=== PATIENT | female | born 1955 | race Caucasian/White ===

== ENCOUNTER 2016-09-11 18:16 | Emergency (ER) | payer BC ==
[2016-09-11 18:27] VITALS: BP 136/55
[2016-09-11] MEDS ORDERED: Sodium Chloride 0.9% 10 ML Syringe FLUSH PRN (18:40)
[2016-09-11] MEDS ORDERED: Famotidine 20 MG/2 ML SDV IVPUSH ONE (18:40)
[2016-09-11] MEDS ORDERED: Ondansetron 4 MG/2 ML SDV IVPUSH ONE (18:40)
[2016-09-11] MEDS ORDERED: Sodium Chloride 0.9% 1,000 ML IV SCH (18:45)
--- NOTE | 2016-09-11 19:30 | EDM.PDOC ---
ED HPI GI/ABDOMINAL - General Chief Complaint: Abdominal Pain Stated Complaint: ABDOMINAL, CHILLS,NAUSEA Time Seen by Provider: 09/11/16 18:30 Source of Information: Reports: Patient, RN notes reviewed - History of Present Illness INITIAL COMMENTS - FREE TEXT/NARRATIVE: 61 year old female with onset of abd pain, nausea and diarrhea this past morning about 14 hrs ago. No further diarrhea but has had a lot of upper and mid abd cramping. Continues to feel very nauseated and still having some discomfort. The pain was radiating to her back. That part now is better. No chest or shoulder pain. No fever or chills. Hx of prior appy. - Related Data Allergies/ADRs: Allergies Allergy/AdvReac Type Severity Reaction Status Date / Time latex Allergy Hives Verified 10/24/13 21:47 Home Meds: Home Meds Britta. 10/24/13 [History] Citalopram. 10/24/13 [History] Flonase. 10/24/13 [History] Levothyroxine. 10/24/13 [History] Simvastatin. 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: Musculoskeletal History: Reports: Arthritis Psychiatric History: Reports: Anxiety Endocrine/Metabolic History: Reports: Hypothyroidism Dermatologic History: Reports: Eczema - Past Surgical History GI Surgical History: Reports: Appendectomy Female Surgical History: Reports: Hysterectomy, Tubal ligation Social & Family History - Family History Family Medical History: Noncontributory - Tobacco Use Smoking Status *Q: Never Smoker Second Hand Smoke Exposure: Yes - Caffeine Use Caffeine Use: Reports: Coffee, Soda, Tea - Alcohol Use Days Per Week of Alcohol Use: 1 Number of Drinks Per Day: 3 Total Drinks Per Week: 3 - Recreational Drug Use Recreational Drug Use: No ED ROS GENERAL - Review of Systems Review Of Systems: See Below Constitutional: Denies: fever, chills, diaphoresis HEENT: Reports: No symptoms Respiratory: Denies: Shortness of Breath, Wheezing, Pleuritic Chest Pain Cardiovascular: Denies: Chest pain GI/Abdominal: Reports: Abdominal pain, Diarrhea, Nausea. Denies: Hematochezia, Melena, Vomiting : Reports: no symptoms Musculoskeletal: Reports: back pain Skin: Reports: no symptoms Neurological: Reports: No Symptoms ED EXAM, GI/ABD - Physical Exam Exam: See Below General Appearance: alert, no apparent distress Eyes: bilateral: normal appearance Throat/Mouth: Normal inspection, Normal oropharynx Head: No: facial swelling Neck: supple, full range of motion. No: lymphadenopathy (L), lymphadenopathy (R ) Respiratory/Chest: no respiratory distress, lungs clear, normal breath sounds Cardiovascular: regular rate, rhythm GI/Abdominal: soft, tenderness (mild upper mid abd tenderness, abd otherwise soft and nontender). No: guarding, rebound Back Exam: No: CVA tenderness (L), CVA tenderness (R) Extremities: normal inspection. No: pedal edema, leg pain Neurological: alert, oriented, no motor/sensory deficits Course - Vital Signs Last Recorded V/S: Last Vital Signs Temp 98.0 F 09/11/16 18:21 Pulse 71 09/11/16 18:21 Resp 14 09/11/16 18:21 BP 136/55 L 09/11/16 18:21 Pulse Ox 98 09/11/16 18:21 - Orders/Labs/Meds Orders: Active Orders 24 hr Category Date Time Status Peripheral IV Care [RC] . DIRECTED Care 09/11/16 18:41 Active Peripheral IV Insertion Adult [OM.PC] Stat Oth 09/11/16 18:40 Ordered Labs: Laboratory Tests 09/11/16 09/11/16 Range/Units 18:32 18:32 WBC 15.55 H (3.98-10.04) K/mm3 RBC 3.82 L (3.98-5.22) M/mm3 Hgb 12.4 (11.2-15.7) gm/L Hct 37.4 (34.1-44.9) % MCV 97.9 H (79.4-94.8) fl MCH 32.5 H (25.6-32.2) pg MCHC 33.2 (32.2-35.5) g/dl RDW Std Deviation 46.4 H (36.4-46.3) fL Plt Count 390 H (182-369) K/mm3 MPV 8.7 L (9.4-12.3) fl Neut % (Auto) 75.0 H (34.0-71.1) % Lymph % (Auto) 11.8 L (19.3-51.7) % [place] % (Auto) 9.7 (4.7-12.5) % Eos % (Auto) 2.9 (0.7-5.8) Baso % (Auto) 0.3 (0.1-1.2) % Neut # (Auto) 11.67 H (1.56-6.13) K/mm3 Lymph # (Auto) 1.84 (1.18-3.74) K/mm3 [place] # (Auto) 1.51 H (0.24-0.36) K/mm3 Eos # (Auto) 0.45 H (0.04-0.36) K/mm3 Baso # (Auto) 0.04 (0.01-0.08) K/mm3 Manual Slide Review Normal smear Sodium 134 L (136-145) mEq/L Potassium 4.1 (3.5-5.1) mEq/L Chloride 97 L (98-107) mEq/L Carbon Dioxide 29 (21-32) mEq/L Anion Gap 12.1 (5-15) BUN 9 (7-18) mg/dL Creatinine 0.8 (0.55-1.02) mg/dL Est Cr Clr Drug Dosing 60.31 mL/min Estimated GFR (MDRD) > 60 (>60) mL/min BUN/Creatinine Ratio 11.3 L (14-18) Glucose 109 (80-115) mg/dL Calcium 9.1 (8.5-10.1) mg/dL Total Bilirubin 0.6 (0.2-1.0) mg/dL AST 15 (15-37) U/L ALT 24 (14-59) U/L Alkaline Phosphatase 75 (46-116) U/L Total Protein 8.0 (6.4-8.2) g/dl Albumin 3.7 (3.4-5.0) g/dl Globulin 4.3 gm/dL Albumin/Globulin Ratio 0.9 L (1-2) Lipase 158 (73-393) U/L Meds: Medications Discontinued Medications Generic Name Dose Route Start Last Admin Trade Name Freq PRN Reason Stop Dose Admin Famotidine 20 mg 09/11/16 18:40 09/11/16 19:05 Pepcid IVPUSH 09/11/16 18:41 20 mg ONETIME ONE Administration Hydromorphone HCl 0.5 mg 09/11/16 20:11 09/11/16 20:16 Dilaudid IVPUSH 09/11/16 20:12 0.5 mg ONETIME ONE Administration Sodium Chloride 1,000 mls @ 999 mls/hr 09/11/16 18:45 09/11/16 19:07 Normal Saline IV 999 mls/hr ONETIME LUCRECIA Administration Ketorolac Tromethamine 30 mg 09/11/16 20:15 09/11/16 20:26 Toradol IVPUSH 30 mg ONETIME LUCRECIA Administration Ondansetron HCl 4 mg 09/11/16 18:40 09/11/16 19:03 Zofran IVPUSH 09/11/16 18:41 4 mg ONETIME ONE Administration Sodium Chloride 10 ml 09/11/16 18:40 09/11/16 19:05 Saline Flush FLUSH 10 ml ASDIRECTED PRN Administration Keep Vein Open - Re-Assessments/Exams Free Text/Narrative Re-Assessment/Exam: 09/11/16 20:23 WBC is elevated, Her nausea is improved after IV zofran and fluid, now starting to have upper and mid abd cramping again. Will give torodol IV and also 0.5 mg dilaudid IV. With her sudden onset of pain, diarrhea , intermitant cramping will put her on a 5 day course of cipro 500 mg bid. She continues to be nontender LLQ Departure - Departure Time of Disposition: 20:45 Disposition: Home, Self-Care 01 Condition: fair Clinical Impression: Abdominal pain Qualifiers: Abdominal location: upper abdomen, unspecified Qualified Code(s): R10.10 - Upper abdominal pain, unspecified Prescriptions: Ciprofloxacin HCl [Cipro] 500 mg PO BID #10 tablet Ondansetron [Zofran ODT] 4 mg PO Q8H PRN #7 tab.dis PRN Reason: Nausea/Vomiting Instructions: Abdominal Pain, Adult, [id number] Referrals: Linda Sanchez MD [Primary Care Provider] - Forms: ED Department Discharge Additional Instructions: clear liquids until tomorrow afternoon, than careful bland diet as tolerated. Start cipro this evening and take that twice daily for 5 days. Zofran if needed for further nausea or vomiting. Follow up with Dr Sanchez tomorrow as planned. Return to ED as needed, especially if symptoms worsening in any way. - My Orders Last 24 Hours: My Active Orders 09/11/16 18:40 Peripheral IV Insertion Adult [OM.PC] Stat 09/11/16 18:41 Peripheral IV Care [RC] . DIRECTED - Assessment/Plan Last 24 Hours: My Active Orders 09/11/16 18:40 Peripheral IV Insertion Adult [OM.PC] Stat 09/11/16 18:41 Peripheral IV Care [RC] . DIRECTED
[2016-09-11] MEDS ORDERED: HYDROmorphone 0.5 MG/0.5 ML Syringe IVPUSH ONE (20:11)
[2016-09-11] MEDS ORDERED: Ketorolac 30 MG/ML SDV IVPUSH SCH (20:15)
== END 2016-09-11 20:59 | disposition home or self-care (01) ==
LOC: JD.ED 18:16
DX: R10.10 Upper abdominal pain, unspecified (principal); Z91.040 Latex allergy status; Z79.899 Other long term (current) drug therapy; E78.00 Pure hypercholesterolemia, unspecified; M19.90 Unspecified osteoarthritis, unspecified site; F41.9 Anxiety disorder, unspecified; E03.9 Hypothyroidism, unspecified
CPT/HCPCS: 36415; 80053; 83690; 85025; 96361; 96374; 96375; 99284; J1170; J1885; J2405; J7040; J7050

== ENCOUNTER 2017-08-11 19:03 | Inpatient (IN) | payer BC ==
[2017-08-11] MEDS ORDERED: HYDROmorphone 0.5 MG/0.5 ML SYRINGE IVPUSH ONE (19:51)
[2017-08-11] MEDS ORDERED: Sodium Chloride 0.9% 1,000 ML IV ONE (19:51)
[2017-08-11] MEDS ORDERED: Ondansetron 4 MG/2 ML SDV IVPUSH ONE (19:51)
--- NOTE | 2017-08-11 19:57 | EDM.PDOC ---
ED HPI GENERAL MEDICAL PROBLEM - General Chief Complaint: Abdominal Pain Stated Complaint: NAUSEA,BLOATED,TIGHTNESS UNDER BREAST,BACK PAIN Time Seen by Provider: 08/11/17 19:36 Source of Information: Reports: Patient History Limitations: Reports: No Limitations - History of Present Illness INITIAL COMMENTS - FREE TEXT/NARRATIVE: Patient is a 61-year-old female who presents to the ED complaining of upper abdominal pain left greater than the right. started approximately noon today after eating a peanut butter sandwich. Pain is persisted. It is constant with waxing waning in nature. Is described as a pressure with a sensation she has a tight band around her abdomen. She is nauseous with no emesis. She's had no diarrhea. She does feel constipated and states she's had some issues with this in the past. She's had 2 bowel movements today described as being hard. She has had similar symptoms years ago with no follow-up thereafter. She denies any fever, dysuria, chest pain, shortness of breath, dizziness, presyncope/syncopal episode, or any additional complaints. There is a family history of first- degree relatives with heart disease. Past history includes hypothyroidism,and anxiety/depression Current medications include levothyroxine, and citalopram Surgical history appendectomy, tubal ligation, and hysterectomy. Epigastric Pain Score (Numeric/FACES): 8 - Related Data Allergies Allergy/AdvReac Type Severity Reaction Status Date / Time latex Allergy Hives Verified 08/11/17 19:17 Home Meds: Home Meds Britta. 10/24/13 [History] Citalopram. 10/24/13 [History] Flonase. 10/24/13 [History] Levothyroxine. 10/24/13 [History] Simvastatin. 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 Psychiatric History: Reports: Anxiety Endocrine/Metabolic History: Reports: Hypothyroidism Dermatologic History: Reports: Eczema - Past Surgical History GI Surgical History: Reports: Appendectomy Female Surgical History: Reports: Hysterectomy, Tubal Ligation Social & Family History - Family History Family Medical History: Noncontributory - Tobacco Use Smoking Status *Q: Never Smoker Second Hand Smoke Exposure: Yes - Caffeine Use Caffeine Use: Reports: Coffee, Soda, Tea - Alcohol Use Days Per Week of Alcohol Use: 1 Number of Drinks Per Day: 3 Total Drinks Per Week: 3 - Recreational Drug Use Recreational Drug Use: No ED ROS GENERAL - Review of Systems Review Of Systems: ROS reveals no pertinent complaints other than HPI. ED EXAM, GI/ABD - Physical Exam Exam: See Below Exam Limited By: No Limitations General Appearance: Alert, WD/WN, Mild Distress Eyes: Bilateral: Normal Appearance Ears: Hearing Grossly Normal Nose: Normal Inspection Throat/Mouth: Normal Inspection, Normal Oropharynx, Normal Voice, No Airway Compromise Neck: Normal Inspection, Supple Respiratory/Chest: No Respiratory Distress, Lungs Clear, Normal Breath Sounds, No Accessory Muscle Use, Chest Non-Tender Cardiovascular: Normal Peripheral Pulses, Regular Rate, Rhythm, No Murmur GI/Abdominal Exam: Soft, No Organomegaly, No Distention, Tender (Upper abdomen left greater than right.), Abnormal Bowel Sounds Back Exam: Normal Inspection. No: CVA Tenderness (L), CVA Tenderness (R) Extremities: Normal Inspection, Non-Tender, No Pedal Edema, Normal Capillary Refill Neurological: Alert, Oriented, CN II-XII Intact, Normal Cognition, No Motor/ Sensory Deficits Psychiatric: Normal Affect, Normal Mood Skin Exam: Warm, Dry, Intact, Normal Color, No Rash Course - Vital Signs Last Recorded V/S: Last Vital Signs Temp 98.2 F 08/11/17 19:17 Pulse 71 08/11/17 19:17 Resp 17 08/11/17 19:17 BP 136/59 L 08/11/17 19:17 Pulse Ox 97 08/11/17 19:17 - Orders/Labs/Meds Orders: Active Orders 24 hr Category Date Time Status EKG Documentation Completion [RC] STAT Care 08/11/17 19:48 Active Peripheral IV Care [RC] . DIRECTED Care 08/11/17 19:50 Active Abdomen 2V AP Flat Upright [CR] Stat Exams 08/11/17 19:48 Taken Abdomen Pelvis w Cont [CT] Stat Exams 08/11/17 21:17 Taken Sodium Chloride 0.9% [Saline Flush] Med 08/11/17 19:47 Active 10 ml FLUSH ASDIRECTED PRN Peripheral IV Insertion Adult [OM.PC] Stat Oth 08/11/17 19:48 Ordered Peripheral IV Insertion Adult [OM.PC] Stat Oth 08/11/17 19:51 Ordered Medication Orders Sodium Chloride (Saline Flush) 10 ml FLUSH ASDIRECTED PRN PRN Reason: Keep Vein Open Last Admin: 08/11/17 22:51 Dose: 10 ml Admin: 08/11/17 20:19 Dose: 10 ml Labs: Laboratory Tests 08/11/17 08/11/17 08/11/17 Range/Units 20:09 20:09 23:11 WBC 15.68 H (3.98-10.04) K/mm3 RBC 3.63 L (3.98-5.22) M/mm3 Hgb 11.7 (11.2-15.7) gm/L Hct 34.7 (34.1-44.9) % MCV 95.6 H (79.4-94.8) fl MCH 32.2 (25.6-32.2) pg MCHC 33.7 (32.2-35.5) g/dl RDW Std Deviation 44.6 (36.4-46.3) fL Plt Count 326 (182-369) K/mm3 MPV 8.3 L (9.4-12.3) fl Neut % (Auto) 74.9 H (34.0-71.1) % Lymph % (Auto) 13.5 L (19.3-51.7) % [place] % (Auto) 8.7 (4.7-12.5) % Eos % (Auto) 2.4 (0.7-5.8) Baso % (Auto) 0.4 (0.1-1.2) % Neut # (Auto) 11.76 H (1.56-6.13) K/mm3 Lymph # (Auto) 2.11 (1.18-3.74) K/mm3 [place] # (Auto) 1.36 H (0.24-0.36) K/mm3 Eos # (Auto) 0.37 H (0.04-0.36) K/mm3 Baso # (Auto) 0.06 (0.01-0.08) K/mm3 Sodium 134 L (136-145) mEq/L Potassium 4.1 (3.5-5.1) mEq/L Chloride 99 (98-107) mEq/L Carbon Dioxide 25 (21-32) mEq/L Anion Gap 14.1 (5-15) BUN 16 (7-18) mg/dL Creatinine 0.8 (0.55-1.02) mg/dL Est Cr Clr Drug Dosing 60.31 mL/min Estimated GFR (MDRD) > 60 (>60) mL/min BUN/Creatinine Ratio 20.0 H (14-18) Glucose 104 (80-115) mg/dL Calcium 9.6 (8.5-10.1) mg/dL Total Bilirubin 0.3 (0.2-1.0) mg/dL AST 15 (15-37) U/L ALT 20 (14-59) U/L Alkaline Phosphatase 75 (46-116) U/L Troponin I < 0.017 (0.00-0.056) ng/mL C-Reactive Protein 1.5 H* (<1.0) mg/dL Total Protein 7.9 (6.4-8.2) g/dl Albumin 3.3 L (3.4-5.0) g/dl Globulin 4.6 gm/dL Albumin/Globulin Ratio 0.7 L (1-2) Lipase 206 (73-393) U/L Urine Color Yellow (Yellow) Urine Appearance Clear (Clear) Urine pH 6.0 (5.0-8.0) Ur Specific [place] 1.025 (1.005-1.030) Urine Protein Negative (Negative) Urine Glucose (UA) Negative (Negative) Urine Ketones Negative (Negative) Urine Occult Blood 3+ H (Negative) Urine Nitrite Negative (Negative) Urine Bilirubin Negative (Negative) Urine Urobilinogen 0.2 (0.2-1.0) Ur Leukocyte Esterase 2+ H (Negative) Urine RBC 0-5 (0-5) /hpf Urine WBC 0-5 (0-5) /hpf Ur Epithelial Cells 0-5 (0-5) /hpf Urine Bacteria Few (FEW) /hpf Hyaline Casts 0-5 (0-5) /lpf WBC Casts 0-5 (0-5) /lpf Urine Mucus Few (FEW) /hpf Meds: Medications Generic Name Dose Route Start Last Admin Trade Name Bree PRN Reason Stop Dose Admin Sodium Chloride 10 ml 08/11/17 19:47 08/11/17 22:51 Saline Flush FLUSH 10 ml ASDIRECTED PRN Administration Keep Vein Open Discontinued Medications Generic Name Dose Route Start Last Admin Trade Name Bree PRN Reason Stop Dose Admin Diatrizoate Meglum/Diatrizoate Sod 90 ml 08/11/17 22:14 08/11/17 22:51 Gastrografin 37% PO 08/11/17 22:15 90 ml ONETIME ONE Administration Hydromorphone HCl 0.5 mg 08/11/17 19:51 08/11/17 20:19 Dilaudid IVPUSH 08/11/17 19:52 0.5 mg ONETIME ONE Administration Sodium Chloride 1,000 mls @ 250 mls/hr 08/11/17 19:51 08/11/17 20:19 Normal Saline IV 08/11/17 23:50 250 mls/hr ONETIME ONE Administration Iopamidol 125 ml 08/11/17 22:14 08/11/17 22:51 Isovue-300 (61%) IVPUSH 08/11/17 22:15 125 ml ONETIME ONE Administration Metoclopramide HCl 5 mg 08/11/17 23:40 08/11/17 23:50 Reglan IVPUSH 08/11/17 23:41 5 mg ONETIME ONE Administration Ondansetron HCl 4 mg 08/11/17 19:51 08/11/17 20:19 Zofran IVPUSH 08/11/17 19:52 4 mg ONETIME ONE Administration - Re-Assessments/Exams Free Text/Narrative Re-Assessment/Exam: IV established with normal saline, dilaudid 0.5 mg IV, and Zofran 4 mg IV.. Initial labs and studies include CBC, chem 14, lipase, troponin, UA, CRP, EKG, and abdomen 2 view flat and upright. EKG: Sinus rhythm at a rate of [address] changes noted. Abdominal x-ray: Reveal copious amounts of stool with few air-fluid levels. No signs of obstruction. Final interpretation is pending. Labs reviewed: White blood count 15.68, hemoglobin 9.7, neutrophil percentage 74.9, neutrophil #11.76, chemistry panel essentially normal. Troponin less than 0.017. CRP 1.5. Lipase 206. 08/11/17 21:18 Reassessment, patient states pain has improved with the above therapies. She still has no [place] sign with examination. Tender to the left upper quadrant. Discussed additional testing with the patient. We have elected to order a CT the abdomen and pelvis with oral and IV contrast. If negative will go ahead and obtain a ultrasound of the gallbladder on outpatient basis. 08/12/17 00: CT abdomen and pelvis impression: Upper terminal inflammation most likely due to pancreatitis. No sequel thereof. Asked for addendum since in his initial interpretation mentioned the pancreas was unremarkable. No mass. No ductal dilatation. Addendum stated the pancreas is abnormal with ill-defined edema in his head. Spoke with Dr. Fowler.Agrees to admit for acute pancreatitis. Bridge orders placed. MCG to be completed for admission. Departure - Departure Time of Disposition: 00:18 Disposition: Admitted As Inpatient 65 Condition: Fair Clinical Impression: Pancreatitis Qualifiers: Chronicity: acute Pancreatitis type: unspecified pancreatitis type Acute pancreatitis complication: no infection or necrosis Qualified Code(s): K85.90 - Acute pancreatitis without necrosis or infection, unspecified - Discharge Information Referrals: Linda Sanchez MD [Primary Care Provider] - Forms: ED Department Discharge - My Orders Last 24 Hours: My Active Orders 08/11/17 19:47 Sodium Chloride 0.9% [Saline Flush] 10 ml FLUSH ASDIRECTED PRN 08/11/17 19:48 EKG Documentation Completion [RC] STAT Abdomen 2V AP Flat Upright [CR] Stat Peripheral IV Insertion Adult [OM.PC] Stat 08/11/17 19:50 Peripheral IV Care [RC] . DIRECTED 08/11/17 19:51 Peripheral IV Insertion Adult [OM.PC] Stat 08/11/17 21:17 Abdomen Pelvis w Cont [CT] Stat - Assessment/Plan Last 24 Hours: My Active Orders 08/11/17 19:47 Sodium Chloride 0.9% [Saline Flush] 10 ml FLUSH ASDIRECTED PRN 08/11/17 19:48 EKG Documentation Completion [RC] STAT Abdomen 2V AP Flat Upright [CR] Stat Peripheral IV Insertion Adult [OM.PC] Stat 08/11/17 19:50 Peripheral IV Care [RC] . DIRECTED 08/11/17 19:51 Peripheral IV Insertion Adult [OM.PC] Stat 08/11/17 21:17 Abdomen Pelvis w Cont [CT] Stat
[2017-08-11] MEDS: Sodium Chloride 0.9% 10 ML Syringe FLUSH PRN ×2 (20:19→22:51)
[2017-08-11] MEDS ORDERED: Diatrizoate Meglumine/Diatrizoate Sodium 37% 120 ML Bottle PO ONE (22:14)
[2017-08-11] MEDS ORDERED: Iopamidol 612 MG/ML 150 ML Bottle IVPUSH ONE (22:14)
[2017-08-11] MEDS ORDERED: Metoclopramide 10 MG/2 ML SDV IVPUSH ONE (23:40)
[2017-08-12] MEDS ORDERED: Scopolamine 1 MG Transdermal Patch TRDERM ONE (00:30)
[2017-08-12] MEDS ORDERED: Temazepam 7.5 MG Cap PO PRN (01:15)
[2017-08-12] MEDS ORDERED: LORazepam 2 MG/ML SDV IVPUSH PRN (01:15)
[2017-08-12] MEDS ORDERED: HYDROmorphone 0.5 MG/0.5 ML SYRINGE IVPUSH PRN (02:01)
[2017-08-12] MEDS ORDERED: Ondansetron 4 MG/2 ML SDV IVPUSH PRN (02:03)
[2017-08-12] MEDS ORDERED: Pneumococcal Polyvalent-23 Vaccine 0.5 ML SDV IM ONE (02:13)
[2017-08-12] MEDS: Sodium Chloride 0.9% 1,000 ML IV SCH ×2 (02:40→16:52)
--- NOTE | 2017-08-12 06:27 | PCM.HP ---
H&P History of Present Illness - General Date of Service: 08/12/17 Source of Information: Patient, Old Records, Provider, RN History Limitations: Reports: No Limitations - History of Present Illness Initial Comments - Free Text/Narative: Netta Nicole is a 61 yo female who presented to our ED last night with upper quadrant abdominal pain which is greater on the right than on the left. She reports it started around noon yesterday after eating a peanut butter sandwich and persisted. The pain waxes and wanes however it is constant. She describes it as a pressure which is like a band around her abdomen. She is nauseous but has not vomited. She has had some constipation issues and does feel constipated. She had 2 prior bowel movements which were "hard". No diarrhea. She reports similar symptoms a few years ago with no follow-up. Denies fever, dysuria, chest pain, shortness of breath, dizziness, syncope, presyncope, or any additional complaints. She does have a first-degree family history of heart disease. She has had a prior appendectomy, tubal ligation, and hysterectomy. In the ED temperature 98.2 Fahrenheit. Pulse 71. Respirations 17. BP 136/59. Pulse ox 97%. Labs were obtained: WBC was elevated at 15.68. Hemoglobin 11.3. Hematocrit 34.7. She is macrocytic. Platelets 326,000. Neutrophils are elevated at 74.9%. Sodium is low at 134. Potassium 4.1. Chloride 99. Carbon dioxide 25. Anion gap was on the high end of good at 14.1. BUN is 16. Creatinine 0.8. EGFR greater than 60. Glucose 104. Calcium 9.6. Bilirubin 0.3. Liver enzymes are good with AST 15, ALT 20, alkaline phosphatase at 75. Troponin is negative at less than 0.017. CRP is elevated at 1.5. Protein 7.9. Albumin 3.3. Lipase is a 206. UA is essentially negative however 3+ occult blood and 2+ leukoesterase are noted. In the ER she was given normal saline 0.5 mg IV for pain and Zofran 4 mg IV. EKG is obtained which shows sinus rhythm at a rate of 63. No ST changes are noted. Abdominal x-ray is obtained that show copious months of stool with a few air-fluid levels. No signs of obstruction. Final interpretation pending radiology read. Exam revealed upper quadrant tenderness in the abdomen with left greater than right and abnormal bowel sounds. There is no Moreno sign. CT of the abdomen and pelvis revealed upper terminal inflammation most likely due to pancreatitis although the initial interpretation mentioned an unremarkable pancreas. Addendum was later added that said the pancreas is abnormal with ill-defined edema in the head. She carries a history of: HLD, impaired vision, arthritis, anxiety, hypothyroidism, eczema. As mentioned above she has had a prior appendectomy, hysterectomy, and tubal ligation. She was never a smoker. She is subsequently admitted to the medical floor. She is a full code. Her PCP is Dr. Sanchez at [facility]. Symptom Onset Date: 08/11/17 Symptom Onset Time: 12:00 Duration of Symptoms: Reports: Hour(s): Location: Reports: Abdomen Quality: Reports: Pressure Severity: Mild Improves with: Reports: None Worsens with: Reports: None Associated Symptoms: Reports: Nausea/Vomiting. Denies: Confusion, Chest Pain, Cough, cough w sputum, Fever/Chills, Loss of Appetite, Seizure, Shortness of Breath Epigastric Pain Score (Numeric/FACES): 2 - Related Data Allergies/Adverse Reactions: Allergies Allergy/AdvReac Type Severity Reaction Status Date / Time latex Allergy Hives Verified 08/11/17 19:17 Home Medications: Home Meds Calcium Carbonate [Calcium] 1,000 mg PO DAILY 08/12/17 [History] Cholecalciferol (Vitamin D3) [Vitamin D] 1 tab PO DAILY 08/12/17 [History] Citalopram Hydrobromide [Celexa] 20 mg PO DAILY 08/12/17 [History] Fish Oil/[place]-3 Fatty Acids [Fish Oil 1,000 MG] 1 tab PO DAILY 08/12/17 [ History] Levothyroxine 75 mcg PO DAILY 08/12/17 [History] Magnesium 1 tab PO DAILY 08/12/17 [History] Multivitamin [Multivitamins] 1 tab PO DAILY 08/12/17 [History] Zinc 1 tab PO DAILY 08/12/17 [History] Past Medical History HEENT History: Reports: Impaired Vision Cardiovascular History: Reports: High Cholesterol Respiratory History: Reports: Other (See Below) Other Respiratory History: allergies seasonal and household Gastrointestinal History: Reports: Pancreatitis Genitourinary History: Reports: None [employer]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: Musculoskeletal History: Reports: Arthritis Psychiatric History: Reports: Anxiety Endocrine/Metabolic History: Reports: Hypothyroidism, Obesity/BMI 30+ Dermatologic History: Reports: Eczema - Infectious Disease History Infectious Disease History: Reports: Chicken Pox, Measles, Mumps - Past Surgical History Cardiovascular Surgical History: Reports: None Respiratory Surgical History: Reports: None GI Surgical History: Reports: Appendectomy Female Surgical History: Reports: Hysterectomy, Tubal Ligation Endocrine Surgical History: Reports: None Social & Family History - Family History Family Medical History: Noncontributory - Tobacco Use Smoking Status *Q: Never Smoker Second Hand Smoke Exposure: Yes - Caffeine Use Caffeine Use: Reports: Coffee - Alcohol Use Days Per Week of Alcohol Use: 1 Number of Drinks Per Day: 3 Total Drinks Per Week: 3 - Recreational Drug Use Recreational Drug Use: No H&P Review of Systems - Review of Systems: Review Of Systems: See Below General: Reports: No Symptoms. Denies: Fever, Chills, Malaise, Weakness, Fatigue, Night Sweats, Decreased Appetite HEENT: Reports: Post Nasal Drip (chronic ). Denies: Ear Pain, Eye Pain, Headaches, Hearing Changes Pulmonary: Reports: No Symptoms. Denies: Shortness of Breath, Wheezing, Pleuritic Chest Pain, Cough, Sputum Cardiovascular: Reports: No Symptoms. Denies: Chest Pain, Palpitations, Dyspnea on Exertion, Edema, Lightheadedness Gastrointestinal: Reports: Abdominal Pain (LUQ> RUQ ), Constipation (chronic ), Nausea (however none currently ). Denies: Anorexia, Black Stool, Bloody Stool, Diarrhea, Decreased Appetite, Difficulty Swallowing, Hematemesis, Hematochezia, Melena, Vomiting Genitourinary: Reports: No Symptoms. Denies: Dysuria, Frequency, Burning, Pain , Urgency Musculoskeletal: Reports: Neck Pain, Shoulder Pain Skin: Reports: No Symptoms Psychiatric: Reports: No Symptoms Neurological: Reports: No Symptoms Hematologic/Lymphatic: Reports: No Symptoms Immunologic: Reports: No Symptoms Exam - Exam Exam: See Below - Vital Signs Vital Signs: Last Vital Signs Temp 97.3 F 08/12/17 01:45 Pulse 60 08/12/17 01:45 Resp 18 08/12/17 01:45 BP 129/61 08/12/17 01:45 Pulse Ox 97 08/12/17 01:45 Weight: 182 lb - Exam General: Alert, Oriented, Cooperative HEENT: PERRLA, Hearing Intact, Mucosa Moist & [place], Nares Patent, Normal Nasal Septum, Posterior Pharynx Clear, Conjunctiva Clear, EOMI, EACs Clear, TMs Clear Neck: Supple, Trachea Midline. No: JVD, Thyromegaly Lungs: Clear to Auscultation, Normal Respiratory Effort Cardiovascular: Regular Rate, Regular Rhythm GI/Abdominal Exam: Normal Bowel Sounds, Soft, No Organomegaly, No Distention, No Abnormal Bruit, No Mass, Pelvis Stable, Tender (LUQ>RUQ 2/10 ) (Female) Exam: Deferred Rectal (Female) Exam: Deferred Back Exam: Normal Inspection, Full Range of Motion. No: CVA Tenderness (L), CVA Tenderness (R) Extremities: Normal Inspection, Normal Range of Motion, Non-Tender, No Pedal Edema, Normal Capillary Refill Peripheral Pulses: 2+: Radial (L), Radial (R), Posterior Tibial (L), Posterior Tibial (R), Dorsalis Pedis (L), Dorsalis Pedis (R) Skin: Warm, Dry, Intact Neurological: Cranial Nerves Intact (grossly ) Neuro Extensive - Mental Status: Alert, Oriented x3, Normal Mood/Affect, Normal Cognition Psychiatric: Alert, Normal Affect, Normal Mood - Patient Data Result Diagrams: 08/12/17 05:23 08/12/17 05:23 *Q Meaningful Use (ADM) - VTE *Q VTE Criteria *Q: - Stroke *Q Stroke Criteria *Q: - AMI *Q AMI Criteria *Q: - Problem List (1) Pancreatitis SNOMED Code(s): 37067485 ICD Code: K85.90 - ACUTE PANCREATITIS WITHOUT NECROSIS OR INFECTION, UNSP Status: Acute Priority: High Current Visit: Yes Qualifiers: Chronicity: acute Pancreatitis type: unspecified pancreatitis type Acute pancreatitis complication: no infection or necrosis Qualified Code(s): K85.90 - Acute pancreatitis without necrosis or infection, unspecified (2) Abdominal pain SNOMED Code(s): 19874867 ICD Code: R10.9 - UNSPECIFIED ABDOMINAL PAIN Status: Acute Priority: High Current Visit: Yes Qualifiers: Abdominal location: upper abdomen, unspecified Qualified Code(s): R10.10 - Upper abdominal pain, unspecified (3) HLD (hyperlipidemia) SNOMED Code(s): 85536934 ICD Code: E78.5 - HYPERLIPIDEMIA, UNSPECIFIED Status: Chronic Priority: Low Current Visit: No Qualifiers: Hyperlipidemia type: unspecified Qualified Code(s): E78.5 - Hyperlipidemia , unspecified (4) Arthritis SNOMED Code(s): 2180088 ICD Code: M19.90 - UNSPECIFIED OSTEOARTHRITIS, UNSPECIFIED SITE Status: Chronic Priority: Low Current Visit: No (5) Hypothyroidism SNOMED Code(s): 46978875 ICD Code: E03.9 - HYPOTHYROIDISM, UNSPECIFIED Status: Chronic Priority: Low Current Visit: No Qualifiers: Hypothyroidism type: unspecified Qualified Code(s): E03.9 - Hypothyroidism , unspecified (6) Anxiety SNOMED Code(s): 35305365 ICD Code: F41.9 - ANXIETY DISORDER, UNSPECIFIED Status: Chronic Priority : Low Current Visit: No (7) Eczema SNOMED Code(s): 58079985 ICD Code: L30.9 - DERMATITIS, UNSPECIFIED Status: Chronic Priority: Low Current Visit: No Qualifiers: Eczema type: unspecified Qualified Code(s): L30.9 - Dermatitis, unspecified Problem List Initiated/Reviewed/Updated: Yes Orders Last 24hrs: Active Orders 24 hr Category Date Time Status Up ad Gabi [RC] ASDIRECTED Care 08/12/17 02:09 Active NPO [Nothing Per Oral Diet] [DIET] Diet 08/12/17 Breakfast Active BASIC METABOLIC PANEL,BMP [CHEM] Routine Lab 08/12/17 05:00 Ordered C-REACTIVE PROTEIN [CHEM] Routine Lab 08/12/17 05:00 Ordered CBC WITH AUTO DIFF [HEME] Routine Lab 08/12/17 05:00 Ordered LIPASE [CHEM] Routine Lab 08/12/17 05:00 Ordered MAGNESIUM [CHEM] Routine Lab 08/12/17 05:00 Ordered Acetaminophen [Tylenol] Med 08/12/17 02:04 Active 650 mg PO Q4H PRN HYDROmorphone [Dilaudid] Med 08/12/17 02:01 Active 1 mg IVPUSH Q4H PRN LORazepam [Ativan] Med 08/12/17 01:15 Active 1 mg IVPUSH Q6H PRN Ondansetron [Zofran] Med 08/12/17 02:03 Active 4 mg IVPUSH Q4H PRN Sodium Chloride 0.9% [Normal Saline] 1,000 ml Med 08/12/17 02:15 Active IV ASDIRECTED Temazepam [Restoril] Med 08/12/17 01:15 Active 7.5 mg PO BEDTIME PRN Resuscitation Status Routine Resus Stat 08/12/17 02:05 Ordered Medication Orders Acetaminophen (Tylenol) 650 mg PO Q4H PRN PRN Reason: Pain/Fever Hydromorphone HCl (Dilaudid) 1 mg IVPUSH Q4H PRN PRN Reason: Pain Last Admin: 08/12/17 02:40 Dose: 1 mg Sodium Chloride (Normal Saline) 1,000 mls @ 150 mls/hr IV ASDIRECTED [facility]CRECIA Last Admin: 08/12/17 02:40 Dose: 150 mls/hr Lorazepam (Ativan) 1 mg IVPUSH Q6H PRN PRN Reason: Anxiety Ondansetron HCl (Zofran) 4 mg IVPUSH Q4H PRN PRN Reason: Nausea/Vomiting Sodium Chloride (Saline Flush) 10 ml FLUSH ASDIRECTED PRN PRN Reason: Keep Vein Open Last Admin: 08/11/17 22:51 Dose: 10 ml Admin: 08/11/17 20:19 Dose: 10 ml Temazepam (Restoril) 7.5 mg PO BEDTIME PRN PRN Reason: Sleep Assessment/Plan Comment:: I/P: Acute Pancreatitis, mild -Upper quadrant abdominal pain (L>R)that started around noon on 08/11/17; 8/ 10 at worst -Nausea and constipation but no diarrhea, vomiting, CP, or SPB -Afebrile -WBC 15.68, CRP 1.5 -Lipase 206 -CT scan (08/11/17) notes abnormal pancreas with ill-defined edema in its head -NPO for now; advance diet as tolerated -IV fluids as ordered -Tylenol/dilaudid for pain -Antiemetics as needed Chronic: Impaired vision HLD Arthritis Anxiety Hypothyroidism Eczema Plan: Admit to medical floor CM for discharge planning Other orders as indicated above Routine AM labs Home meds as ordered She is ambulatory so will hold off PT/OT for now DVT prophylaxis: DIDIER hose and ambulation Code status: Full Code; PCP: Dr. Sanchez at [place]
[2017-08-12] MEDS ORDERED: Albuterol/Ipratropium 3.0-0.5 MG/3 ML Neb Soln NEB PRN (06:32)
[2017-08-12] MEDS ORDERED: Polyethylene Glycol 3350 Powder 17 GM Packet PO PRN (06:32)
[2017-08-12] MEDS ORDERED: Ondansetron 4 MG Tab.DIS PO PRN (06:32)
[2017-08-12] MEDS ORDERED: Bisacodyl 5 MG Tab PO PRN (06:32)
[2017-08-12] MEDS ORDERED: Docusate Sodium 100 MG Cap PO PRN (06:32)
--- NOTE | 2017-08-12 07:05 | CR ---
Abdomen: Supine and upright views of the abdomen were obtained. Comparison: No prior abdominal x-ray. Bowel gas pattern appears within normal limits. No free air is seen. No abnormal calcifications or soft tissue abnormality is seen. Bony structures are unremarkable. Impression: 1. Nothing acute is seen on two-view chest x-ray. Diagnostic code #1
--- NOTE | 2017-08-12 07:22 | CT ---
CT abdomen and pelvis Technique: Multiple axial sections were obtained from above the dome of the diaphragm inferiorly through the pubic symphysis. Intravenous and oral contrast was utilized. Delayed images were also obtained through the pelvis. Comparison: No prior CT exam, prior abdominal x-ray of 08/11/17. Findings: Visualized lung bases show nothing acute. Liver shows no focal parenchymal abnormality. Gallbladder contains no calcified gallstones. Spleen appears within normal limits. Adrenal glands show no nodule. Pancreas shows no focal mass. Very slight haziness is identified around the pancreatic head. Difficult to exclude mild pancreatitis. Adrenal glands show no nodule. Aorta shows no aneurysmal dilatation. No retroperitoneal adenopathy is seen. No mesenteric abnormalities are seen. No pelvic mass or adenopathy is noted. Minimal increased stool is noted within the colon. Appendix is not visualized with certainty. No free fluid is identified. No additional inflammatory change is seen. Delayed images show contrast within the distal ureters and within the bladder. Scattered degenerative change is noted throughout the spine with mild disc space narrowing and endplate osteophytes. Mild degenerative apophyseal change is noted within the lower lumbar spine. Impression: 1. Very slight haziness around the pancreatic head. Mild pancreatitis is possible. Please correlate with lab values. 2. Other incidental findings as noted above. Diagnostic code #3 Agree with preliminary report issued by [employer] ([employer] preliminary report dictated on 08/12/17, 12:19 AM Central Time)
[2017-08-12] MEDS: Acetaminophen 325 MG Tab PO PRN ×2 (09:27→13:23)
[2017-08-12] MEDS ORDERED: hydrALAZINE 20 MG/ML SDV IVPUSH PRN (11:42)
[2017-08-12] MEDS ORDERED: Metoprolol Tartrate 5 MG/5 ML SDV IVPUSH PRN (11:42)
[2017-08-13] MEDS ORDERED: Levothyroxine 88 MCG Tab PO SCH ×2 (06:00→09:00)
--- NOTE | 2017-08-13 08:56 | PCM.PN ---
- General Info Date of Service: 08/13/17 Functional Status: Reports: Pain Controlled, Tolerating Diet (tolerated this morning/breakfast prior to NPO status for [facility] US), Ambulating, Urinating. Denies: New Symptoms - Review of Systems General: Reports: Weakness (improved). Denies: Fever HEENT: Reports: No Symptoms Pulmonary: Reports: No Symptoms. Denies: Shortness of Breath, Cough Cardiovascular: Reports: No Symptoms. Denies: Chest Pain Gastrointestinal: Reports: No Symptoms. Denies: Abdominal Pain, Nausea, Vomiting Genitourinary: Reports: No Symptoms. Denies: Dysuria, Frequency, Pain, Hematuria, Flank Pain Neurological: Reports: No Symptoms - Patient Data Vitals - Most Recent: Last Vital Signs Temp 97.9 F 08/13/17 06:00 Pulse 68 08/13/17 06:00 Resp 18 08/13/17 06:00 BP 102/54 L 08/13/17 06:00 Pulse Ox 94 L 08/13/17 06:14 Weight - Most Recent: 183 lb 5 oz I&O - Last 24 Hours: Intake & Output 08/12/17 08/13/17 08/13/17 22:59 06:59 14:59 Intake Total 3468 1450 Balance 3468 1450 Med Orders - Current: Current Medications Acetaminophen (Tylenol) 650 mg PO Q4H PRN PRN Reason: Pain/Fever Last Admin: 08/12/17 13:23 Dose: 650 mg Albuterol/Ipratropium (Duoneb 3.0-0.5 Mg/3 Ml) 3 ml NEB Q4H PRN PRN Reason: Shortness Of Breath/wheezing Bisacodyl (Dulcolax) 5 mg PO DAILY PRN PRN Reason: Constipation Calcium Carbonate/Glycine (Tums) 1,000 mg PO DAILY [facility] Citalopram Hydrobromide (Celexa) 20 mg PO DAILY [facility] Docusate Sodium (Colace) 100 mg PO BID PRN PRN Reason: Constipation Hydralazine HCl (Apresoline) 10 mg IVPUSH Q6H PRN PRN Reason: Hypertension Hydromorphone HCl (Dilaudid) 1 mg IVPUSH Q4H PRN PRN Reason: Pain Last Admin: 08/12/17 02:40 Dose: 1 mg Levothyroxine Sodium (Synthroid) 88 mcg PO DAILY@0600 [facility] Last Admin: 08/13/17 05:58 Dose: 88 mcg Lorazepam (Ativan) 1 mg IVPUSH Q6H PRN PRN Reason: Anxiety Last Admin: 08/12/17 09:26 Dose: 1 mg Magnesium Oxide (Magnesium Oxide) 400 mg PO DAILY [facility] Magnesium Sulfate (Pharmacy To Dose - Magnesium Replacement) 1 dose .XX ASDIRECTED [facility] Metoprolol Tartrate (Lopressor) 5 mg IVPUSH Q4H PRN PRN Reason: Tachycardia Multivitamins (Thera) 1 each PO DAILY [facility] Ondansetron HCl (Zofran) 4 mg IVPUSH Q4H PRN PRN Reason: Nausea/Vomiting Last Admin: 08/12/17 21:18 Dose: 4 mg Ondansetron HCl (Zofran Odt) 4 mg PO Q6H PRN PRN Reason: nausea, able to take PO Polyethylene Glycol (Miralax) 17 gm PO DAILY PRN PRN Reason: Constipation Potassium Chloride (Pharmacy To Dose - Potassium Replacement) 1 dose .XX ASDIRECTED [facility] Senna/Docusate Sodium (Senna Plus) 1 tab PO BID PRN PRN Reason: Constipation Sodium Chloride (Saline Flush) 10 ml FLUSH ASDIRECTED PRN PRN Reason: Keep Vein Open Last Admin: 08/11/17 22:51 Dose: 10 ml Temazepam (Restoril) 7.5 mg PO BEDTIME PRN PRN Reason: Sleep Discontinued Medications Diatrizoate Meglum/Diatrizoate Sod (Gastrografin 37%) 90 ml PO ONETIME ONE Stop: 08/11/17 22:15 Last Admin: 08/11/17 22:51 Dose: 90 ml Hydromorphone HCl (Dilaudid) 0.5 mg IVPUSH ONETIME ONE Stop: 08/11/17 19:52 Last Admin: 08/11/17 20:19 Dose: 0.5 mg Sodium Chloride (Normal Saline) 1,000 mls @ 250 mls/hr IV ONETIME ONE Stop: 08/11/17 23:50 Last Admin: 08/11/17 20:19 Dose: 250 mls/hr Sodium Chloride (Normal Saline) 1,000 mls @ 150 mls/hr IV ASDIRECTED [facility] Last Admin: 08/12/17 16:52 Dose: 150 mls/hr Iopamidol (Isovue-300 (61%)) 125 ml IVPUSH ONETIME ONE Stop: 08/11/17 22:15 Last Admin: 08/11/17 22:51 Dose: 125 ml Levothyroxine Sodium (Synthroid) 88 mcg PO DAILY [facility] Metoclopramide HCl (Reglan) 5 mg IVPUSH ONETIME ONE Stop: 08/11/17 23:41 Last Admin: 08/11/17 23:50 Dose: 5 mg Ondansetron HCl (Zofran) 4 mg IVPUSH ONETIME ONE Stop: 08/11/17 19:52 Last Admin: 08/11/17 20:19 Dose: 4 mg Pneumococcal Polyvalent Vaccine (Pneumovax 23) 0.5 ml IM .ONCE ONE Stop: 08/12/17 02:14 Scopolamine (Scopolamine) 1 each TRDERM ONETIME ONE Stop: 08/12/17 00:31 Last Admin: 08/12/17 00:44 Dose: 1 each - Exam Quality Assessment: DVT Prophylaxis General: Alert, Oriented, Cooperative, No Acute Distress HEENT: Pupils Equal, EOMI, Mucous Membr. Moist/[place] Neck: Supple Lungs: Clear to Auscultation, Normal Respiratory Effort, Decreased Breath Sounds (bases) Cardiovascular: Regular Rate, Regular Rhythm GI/Abdominal Exam: Normal Bowel Sounds, Soft, Non-Tender (Female) Exam: Deferred Extremities: No Pedal Edema, Normal Capillary Refill Peripheral Pulses: 2+: Dorsalis Pedis (L), Dorsalis Pedis (R) Neurological: No New Focal Deficit Psy/Mental Status: Alert, Normal Affect, Normal Mood - Problem List & Annotations (1) Abdominal pain SNOMED Code(s): 90026630 Code(s): R10.9 - UNSPECIFIED ABDOMINAL PAIN Status: Acute Priority: High Current Visit: Yes Qualifiers: Abdominal location: upper abdomen, unspecified Qualified Code(s): R10.10 - Upper abdominal pain, unspecified (2) Pancreatitis SNOMED Code(s): 48077397 Code(s): K85.90 - ACUTE PANCREATITIS WITHOUT NECROSIS OR INFECTION, UNSP Status: Acute Priority: High Current Visit: Yes Qualifiers: Chronicity: acute Pancreatitis type: unspecified pancreatitis type Acute pancreatitis complication: no infection or necrosis Qualified Code(s): K85.90 - Acute pancreatitis without necrosis or infection, unspecified - Problem List Review Problem List Initiated/Reviewed/Updated: Yes - My Orders Last 24 Hours: My Active Orders 08/13/17 Lunch Low Fat Diet [DIET] - Plan Plan:: I/P: Acute Pancreatitis, mild -Upper quadrant abdominal pain (L>R)that started around noon on 08/11/17; 8/ 10 at worst -Nausea and constipation but no diarrhea, vomiting, CP, or SOB; Afebrile -WBC 15.68, CRP 1.5-- -Lipase 206-->140, do not feel this is true pancreatitis with normal lipase levels -Pain management PRN -Abd US today, R/O GB disease, unlikely with normal LFT's. -Lipid panel= WNL -H.Pylori screening= negative Chronic: Impaired vision HLD- recheck lipid panel as above Arthritis Anxiety Hypothyroidism- check TSH= WNL, 2.589 Eczema Plan: Admit to medical floor CM for discharge planning--- if abd US looks OK, can DC home later this afternoon/evening vs tomorrow am. Other orders as indicated above Routine AM labs Home meds as ordered She is ambulatory so will hold off PT/OT for now DVT prophylaxis: DIDIER hill and ambulation Code status: Full Code; PCP: Dr. Sanchez at [place]
[2017-08-13] MEDS ORDERED: Citalopram 20 MG Tab PO SCH (09:00)
[2017-08-13] MEDS ORDERED: Multivitamins,Therapeutic Tab PO SCH (09:00)
[2017-08-13] MEDS ORDERED: Calcium Carbonate 500 MG Tab.Chew PO SCH (09:00)
[2017-08-13] MEDS ORDERED: Magnesium Oxide 400 MG Tab PO SCH (09:00)
--- NOTE | 2017-08-13 15:15 | US ---
Limited abdominal ultrasound: Multiple real-time images of the upper right abdomen were obtained. Comparison: No previous right upper quadrant ultrasound, previous CT abdomen and pelvis exam of 08/11/17. Findings: Liver shows no focal abnormality. Minimal edema is noted around the gallbladder. No gallbladder wall thickening or gallstones are seen. No biliary duct dilatation is seen. Pancreas appears within normal limits. Right kidney shows no hydronephrosis or mass. Right kidney measures 11.0 cm in length. Impression: 1. Minimal fluid adjacent to the gallbladder of uncertain significance as no gallbladder wall thickening or biliary duct dilatation is seen. 2. Other portions of the right upper quadrant abdominal ultrasound are unremarkable. Diagnostic code #3
[2017-08-13 15:44] VITALS: BP 132/89
--- NOTE | 2017-08-13 19:05 | PCM.DCSUM1 ---
Discharge Summary - Hospital Course HPI Initial Comments: Netta Nicole is a 61 yo female who presented to our ED last night with upper quadrant abdominal pain which is greater on the right than on the left. She reports it started around noon yesterday after eating a peanut butter sandwich and persisted. The pain waxes and wanes however it is constant. She describes it as a pressure which is like a band around her abdomen. She is nauseous but has not vomited. She has had some constipation issues and does feel constipated. She had 2 prior bowel movements which were "hard". No diarrhea. She reports similar symptoms a few years ago with no follow-up. Denies fever, dysuria, chest pain, shortness of breath, dizziness, syncope, presyncope, or any additional complaints. She does have a first-degree family history of heart disease. She has had a prior appendectomy, tubal ligation, and hysterectomy. In the ED temperature 98.2 Fahrenheit. Pulse 71. Respirations 17. BP 136/59. Pulse ox 97%. Labs were obtained: WBC was elevated at 15.68. Hemoglobin 11.3. Hematocrit 34.7. She is macrocytic. Platelets 326,000. Neutrophils are elevated at 74.9%. Sodium is low at 134. Potassium 4.1. Chloride 99. Carbon dioxide 25. Anion gap was on the high end of good at 14.1. BUN is 16. Creatinine 0.8. EGFR greater than 60. Glucose 104. Calcium 9.6. Bilirubin 0.3. Liver enzymes are good with AST 15, ALT 20, alkaline phosphatase at 75. Troponin is negative at less than 0.017. CRP is elevated at 1.5. Protein 7.9. Albumin 3.3. Lipase is a 206. UA is essentially negative however 3+ occult blood and 2+ leukoesterase are noted. In the ER she was given normal saline 0.5 mg IV for pain and Zofran 4 mg IV. EKG is obtained which shows sinus rhythm at a rate of 63. No ST changes are noted. Abdominal x-ray is obtained that show copious months of stool with a few air-fluid levels. No signs of obstruction. Final interpretation pending radiology read. Exam revealed upper quadrant tenderness in the abdomen with left greater than right and abnormal bowel sounds. There is no Moreno sign. CT of the abdomen and pelvis revealed upper terminal inflammation most likely due to pancreatitis although the initial interpretation mentioned an unremarkable pancreas. Addendum was later added that said the pancreas is abnormal with ill-defined edema in the head. She carries a history of: HLD, impaired vision, arthritis, anxiety, hypothyroidism, eczema. As mentioned above she has had a prior appendectomy, hysterectomy, and tubal ligation. She was never a smoker. She is subsequently admitted to the medical floor. She is a full code. Her PCP is Dr. Sanchez at [facility]. - Discharge Data Discharge Date: 08/13/17 (Admit date: 08/12/17) Discharge Disposition: Home, Self-Care 01 Condition: Good - Discharge Diagnosis/Problem(s) (1) Abdominal pain SNOMED Code(s): 49061948 ICD Code: R10.9 - UNSPECIFIED ABDOMINAL PAIN Status: Acute Priority: High Qualifiers: Abdominal location: upper abdomen, unspecified Qualified Code(s): R10.10 - Upper abdominal pain, unspecified (2) HLD (hyperlipidemia) SNOMED Code(s): 10665192 ICD Code: E78.5 - HYPERLIPIDEMIA, UNSPECIFIED Status: Chronic Priority: Low Qualifiers: Hyperlipidemia type: unspecified Qualified Code(s): E78.5 - Hyperlipidemia , unspecified (3) Arthritis SNOMED Code(s): 3778679 ICD Code: M19.90 - UNSPECIFIED OSTEOARTHRITIS, UNSPECIFIED SITE Status: Chronic Priority: Low (4) Hypothyroidism SNOMED Code(s): 29082482 ICD Code: E03.9 - HYPOTHYROIDISM, UNSPECIFIED Status: Chronic Priority: Low Qualifiers: Hypothyroidism type: unspecified Qualified Code(s): E03.9 - Hypothyroidism , unspecified (5) Anxiety SNOMED Code(s): 60826913 ICD Code: F41.9 - ANXIETY DISORDER, UNSPECIFIED Status: Chronic Priority : Low (6) Eczema SNOMED Code(s): 95471746 ICD Code: L30.9 - DERMATITIS, UNSPECIFIED Status: Chronic Priority: Low Qualifiers: Eczema type: unspecified Qualified Code(s): L30.9 - Dermatitis, unspecified - Patient Summary/Data Consults: Consultations 08/12/17 06:32 Consult to Case Management [CONS] Routine 08/12/17 12:34 Consult to Research Manager [CONS] Routine Labs Pending at D/C: None Recommended Follow-up Testing/Procedures: Follow-up with PCP in 7-10 days, sooner should symptoms return. If symptoms return and we'll recommend follow-up abdominal ultrasound and HIDA scan. Hospital Course: I/P: Acute Pancreatitis, mild -Upper quadrant abdominal pain (L>R)that started around noon on 08/11/17; 8/ 10 at worst -Nausea and constipation but no diarrhea, vomiting, CP, or SOB; Afebrile -WBC 15.68, CRP 1.5-- -Lipase 206-->140, do not feel this is true pancreatitis with normal lipase levels -Pain management PRN -Abd US today, R/O GB disease, unlikely with normal LFT's. -Lipid panel= WNL -H.Pylori screening= negative Chronic: Impaired vision HLD- recheck lipid panel as above Arthritis Anxiety Hypothyroidism- check TSH= WNL, 2.589 Eczema Plan: Admit to medical floor CM for discharge planning--- if abd US looks OK, can DC home later this afternoon/evening vs tomorrow am. Other orders as indicated above Routine AM labs Home meds as ordered She is ambulatory so will hold off PT/OT for now DVT prophylaxis: DIDIER hill and ambulation Code status: Full Code; PCP: Dr. Sanchez at [place] Overall Netta's pain improved. As noted above it likely was not caused by pancreatitis as lipase was normal. Abdominal ultrasound was obtained today and showed "1. Minimal fluid adjacent to the gallbladder of uncertain significance as bladder wall thickening or biliary duct dilation is seen. 2. Other portions of the right upper quadrant abdominal ultrasound are unremarkable." This was interpreted by Dr. Rolon. Her abdominal pain resolved and her biggest complaint at discharge was pain from her arthritis. We discussed low- fat foods prior to discharge. She was instructed to continue eating low-fat for the next few days and if symptoms remain resolved she may slowly introduce some higher fat foods to her diet. Should symptoms return she should follow-up with her primary care provider. Would recommend follow-up abdominal ultrasound in 2 weeks if symptoms return to check on status of fluid around her gallbladder. Would also suggest HIDA scan at that time. She'll be discharged today. She should follow-up with her primary care in 7-10 days. - Patient Instructions Diet, Other: Low fat diet for next few days. May introduce fattier foods slowly. Activity: As Tolerated Showering/Bathing: October Shower Notify Provider of: Fever, Increased Pain, Nausea and/or Vomiting - Discharge Plan Home Medications: Home Meds Calcium Carbonate [Calcium] 1,000 mg PO DAILY 08/12/17 [History] Cholecalciferol (Vitamin D3) [Vitamin D] 1 tab PO DAILY 08/12/17 [History] Citalopram Hydrobromide [Celexa] 20 mg PO DAILY 08/12/17 [History] Fish Oil/[place]-3 Fatty Acids [Fish Oil 1,000 MG] 1 tab PO DAILY 08/12/17 [ History] Levothyroxine Sodium 88 mcg PO DAILY 08/12/17 [History] Magnesium 1 tab PO DAILY 08/12/17 [History] Multivitamin [Multivitamins] 1 tab PO DAILY 08/12/17 [History] Zinc 1 tab PO DAILY 08/12/17 [History] Patient Handouts: Abdominal Pain, Adult, [id number], Low-Fat Diet for Pancreatitis or Gallbladder Conditions Forms: ED Department Discharge Referrals: Linda Sanchez MD [Primary Care Provider] - (Please call and schedule a post-hospital follow-up appointment with Dr. Mckeon within 1 week. ) - Discharge Summary/Plan Comment DC Time >30 min.: Yes (45 mins ) - General Info Admission Dx/Problem (Free Text: Pancreatitis Functional Status: Reports: Pain Controlled, Tolerating Diet, Ambulating, Urinating. Denies: New Symptoms - Review of Systems General: Reports: No Symptoms. Denies: Fever, Weakness, Fatigue, Malaise HEENT: Reports: No Symptoms. Denies: Eye Pain, Headaches, Sore Throat Pulmonary: Reports: No Symptoms. Denies: Shortness of Breath, Cough, Sputum, Wheezing Cardiovascular: Reports: No Symptoms. Denies: Chest Pain, Palpitations, Dyspnea on Exertion Gastrointestinal: Reports: No Symptoms. Denies: Abdominal Pain, Constipation, Diarrhea, Nausea, Vomiting Genitourinary: Reports: No Symptoms. Denies: Dysuria, Frequency, Burning, Pain , Urgency Musculoskeletal: Reports: Foot Pain (Arthritic), Other (Arthritic jaw pain) Skin: Reports: No Symptoms Neurological: Reports: No Symptoms Psychiatric: Reports: No Symptoms - Patient Data Vitals - Most Recent: Last Vital Signs Temp 99.1 F 08/13/17 15:07 Pulse 66 08/13/17 15:07 Resp 19 08/13/17 15:07 BP 132/89 08/13/17 15:07 Pulse Ox 96 08/13/17 15:07 Weight - Most Recent: 183 lb 5 oz I&O - Last 24 hours: Intake & Output 08/13/17 08/13/17 08/13/17 06:59 14:59 22:59 Intake Total 5611 963 1766 Balance 3759 741 1317 Lab Results - Last 24 hrs: Laboratory Results - last 24 hr 08/13/17 08/13/17 08/13/17 Range/Units 09:45 09:46 09:46 WBC (3.98-10.04) K/mm3 RBC (3.98-5.22) M/mm3 Hgb (11.2-15.7) gm/L Hct (34.1-44.9) % MCV (79.4-94.8) fl MCH (25.6-32.2) pg MCHC (32.2-35.5) g/dl RDW Std Deviation (36.4-46.3) fL Plt Count (182-369) K/mm3 MPV (9.4-12.3) fl Sodium (136-145) mEq/L Potassium (3.5-5.1) mEq/L Chloride (98-107) mEq/L Carbon Dioxide (21-32) mEq/L Anion Gap (5-15) BUN (7-18) mg/dL Creatinine (0.55-1.02) mg/dL Est Cr Clr Drug Dosing mL/min Estimated GFR (MDRD) (>60) mL/min BUN/Creatinine Ratio (14-18) Glucose (80-115) mg/dL Calcium (8.5-10.1) mg/dL C-Reactive Protein (<1.0) mg/dL Triglycerides 81 (<150) mg/dL Cholesterol 169 (<200) mg/dL LDL Cholesterol Direct 101 H* (<100) mg/dL HDL Cholesterol 58.0 (40-59) mg/dL TSH 3rd Generation 2.589 (0.358-3.74) uIU/mL H. pylori IgG Antibody Negative (NEGATIVE) 08/13/17 08/13/17 08/13/17 Range/Units 09:46 09:46 09:46 WBC 13.10 H (3.98-10.04) K/mm3 RBC 3.15 L (3.98-5.22) M/mm3 Hgb 10.1 L (11.2-15.7) gm/L Hct 30.9 L (34.1-44.9) % MCV 98.1 H (79.4-94.8) fl MCH 32.1 (25.6-32.2) pg MCHC 32.7 (32.2-35.5) g/dl RDW Std Deviation 47.3 H (36.4-46.3) fL Plt Count 282 (182-369) K/mm3 MPV 8.9 L (9.4-12.3) fl Sodium 136 (136-145) mEq/L Potassium 4.1 (3.5-5.1) mEq/L Chloride 101 (98-107) mEq/L Carbon Dioxide 28 (21-32) mEq/L Anion Gap 11.1 (5-15) BUN 10 (7-18) mg/dL Creatinine 0.8 (0.55-1.02) mg/dL Est Cr Clr Drug Dosing 60.31 mL/min Estimated GFR (MDRD) > 60 (>60) mL/min BUN/Creatinine Ratio 12.5 L (14-18) Glucose 88 (80-115) mg/dL Calcium 9.1 (8.5-10.1) mg/dL C-Reactive Protein 9.2 H* (<1.0) mg/dL Triglycerides (<150) mg/dL Cholesterol (<200) mg/dL LDL Cholesterol Direct (<100) mg/dL HDL Cholesterol (40-59) mg/dL TSH 3rd Generation (0.358-3.74) uIU/mL H. pylori IgG Antibody (NEGATIVE) Med Orders - Current: Current Medications Acetaminophen (Tylenol) 650 mg PO Q4H PRN PRN Reason: Pain/Fever Last Admin: 08/12/17 13:23 Dose: 650 mg Albuterol/Ipratropium (Duoneb 3.0-0.5 Mg/3 Ml) 3 ml NEB Q4H PRN PRN Reason: Shortness Of Breath/wheezing Bisacodyl (Dulcolax) 5 mg PO DAILY PRN PRN Reason: Constipation Calcium Carbonate/Glycine (Tums) 1,000 mg PO DAILY [facility] Last Admin: 08/13/17 10:09 Dose: Not Given Citalopram Hydrobromide (Celexa) 20 mg PO DAILY [facility] Last Admin: 08/13/17 10:09 Dose: Not Given Docusate Sodium (Colace) 100 mg PO BID PRN PRN Reason: Constipation Hydralazine HCl (Apresoline) 10 mg IVPUSH Q6H PRN PRN Reason: Hypertension Hydromorphone HCl (Dilaudid) 1 mg IVPUSH Q4H PRN PRN Reason: Pain Last Admin: 08/12/17 02:40 Dose: 1 mg Levothyroxine Sodium (Synthroid) 88 mcg PO DAILY@0600 [facility] Last Admin: 08/13/17 05:58 Dose: 88 mcg Lorazepam (Ativan) 1 mg IVPUSH Q6H PRN PRN Reason: Anxiety Last Admin: 08/12/17 09:26 Dose: 1 mg Magnesium Oxide (Magnesium Oxide) 400 mg PO DAILY [facility] Last Admin: 08/13/17 10:09 Dose: Not Given Magnesium Sulfate (Pharmacy To Dose - Magnesium Replacement) 1 dose .XX ASDIRECTED [facility] Metoprolol Tartrate (Lopressor) 5 mg IVPUSH Q4H PRN PRN Reason: Tachycardia Multivitamins (Thera) 1 each PO DAILY [facility] Last Admin: 08/13/17 10:09 Dose: Not Given Ondansetron HCl (Zofran) 4 mg IVPUSH Q4H PRN PRN Reason: Nausea/Vomiting Last Admin: 08/12/17 21:18 Dose: 4 mg Ondansetron HCl (Zofran Odt) 4 mg PO Q6H PRN PRN Reason: nausea, able to take PO Polyethylene Glycol (Miralax) 17 gm PO DAILY PRN PRN Reason: Constipation Potassium Chloride (Pharmacy To Dose - Potassium Replacement) 1 dose .XX ASDIRECTED [facility] Senna/Docusate Sodium (Senna Plus) 1 tab PO BID PRN PRN Reason: Constipation Sodium Chloride (Saline Flush) 10 ml FLUSH ASDIRECTED PRN PRN Reason: Keep Vein Open Last Admin: 08/11/17 22:51 Dose: 10 ml Temazepam (Restoril) 7.5 mg PO BEDTIME PRN PRN Reason: Sleep Discontinued Medications Diatrizoate Meglum/Diatrizoate Sod (Gastrografin 37%) 90 ml PO ONETIME ONE Stop: 08/11/17 22:15 Last Admin: 08/11/17 22:51 Dose: 90 ml Hydromorphone HCl (Dilaudid) 0.5 mg IVPUSH ONETIME ONE Stop: 08/11/17 19:52 Last Admin: 08/11/17 20:19 Dose: 0.5 mg Sodium Chloride (Normal Saline) 1,000 mls @ 250 mls/hr IV ONETIME ONE Stop: 08/11/17 23:50 Last Admin: 08/11/17 20:19 Dose: 250 mls/hr Sodium Chloride (Normal Saline) 1,000 mls @ 150 mls/hr IV ASDIRECTED [facility] Last Admin: 08/12/17 16:52 Dose: 150 mls/hr Iopamidol (Isovue-300 (61%)) 125 ml IVPUSH ONETIME ONE Stop: 08/11/17 22:15 Last Admin: 08/11/17 22:51 Dose: 125 ml Levothyroxine Sodium (Synthroid) 88 mcg PO DAILY [facility] Metoclopramide HCl (Reglan) 5 mg IVPUSH ONETIME ONE Stop: 08/11/17 23:41 Last Admin: 08/11/17 23:50 Dose: 5 mg Ondansetron HCl (Zofran) 4 mg IVPUSH ONETIME ONE Stop: 08/11/17 19:52 Last Admin: 08/11/17 20:19 Dose: 4 mg Pneumococcal Polyvalent Vaccine (Pneumovax 23) 0.5 ml IM .ONCE ONE Stop: 08/12/17 02:14 Scopolamine (Scopolamine) 1 each TRDERM ONETIME ONE Stop: 08/12/17 00:31 Last Admin: 08/12/17 00:44 Dose: 1 each - Exam Quality Assessment: Reports: DVT Prophylaxis General: Reports: Alert, Oriented, Cooperative, No Acute Distress HEENT: Reports: Pupils Equal, Pupils Reactive, EOMI, Mucous Membr. Moist/[place] Neck: Reports: Supple, Trachea Midline, No JVD Lungs: Reports: Clear to Auscultation, Normal Respiratory Effort Cardiovascular: Reports: Regular Rate, Regular Rhythm GI/Abdominal Exam: Normal Bowel Sounds, Soft, Non-Tender, No Organomegaly, No Distention, No Abnormal Bruit, No Mass, Pelvis Stable (Female) Exam: Deferred Rectal (Female) Exam: Deferred Back Exam: Reports: Normal Inspection, Full Range of Motion Extremities: Normal Inspection, Normal Range of Motion, Non-Tender, No Pedal Edema, Normal Capillary Refill Skin: Reports: Warm, Dry, Intact Neurological: Reports: No New Focal Deficit Psy/Mental Status: Reports: Alert, Normal Affect, Normal Mood *Q Meaningful Use (DIS) - VTE *Q VTE Criteria *Q: - Stroke *Q Stroke Criteria *Q: - AMI *Q AMI Criteria *Q:
== END 2017-08-13 20:10 | disposition home or self-care (01) | DRG 282 ==
LOC: JD.ED 19:03 → JD.MS 08-12 01:04
PROVIDERS: ADMIT Internal Medicine; ATTEND Internal Medicine
PROC: 3E0234Z Introduction of Serum, Toxoid and Vaccine into Muscle, Percutaneous Approach (ICD-10-PCS; principal; 2017-08-13)
DX: K85.90 Acute pancreatitis without necrosis or infection, unspecified (principal); E78.5 Hyperlipidemia, unspecified; M19.90 Unspecified osteoarthritis, unspecified site; E03.9 Hypothyroidism, unspecified; F41.9 Anxiety disorder, unspecified; F32.9 Major depressive disorder, single episode, unspecified; L30.9 Dermatitis, unspecified; H54.7 Unspecified visual loss; Z23 Encounter for immunization; Z91.040 Latex allergy status; Z79.899 Other long term (current) drug therapy
CPT/HCPCS: 36415; 74019; 74019-26; 74177; 74177-26; 76705; 76705-26; 80048; 80053; 80061; 81001; 83690; 83735; 84443; 84484; 85025; 85027; 86140; 86677; 90732; 93005; 96361; 96374; 96375; 99285; 99285-25; A9270-GY; G0009; J1170; J2060; J2405; J2765; J7040; J7050; Q9963; Q9967

== ENCOUNTER 2018-10-15 05:06 | Emergency (ER) | payer BC ==
[2018-10-15 05:18] VITALS: BP 125/59
[2018-10-15] MEDS ORDERED: Ondansetron 4 MG/2 ML SDV IVPUSH ONE (05:29)
[2018-10-15] MEDS ORDERED: Sodium Chloride 0.9% 1,000 ML IV SCH (05:30)
[2018-10-15] MEDS ORDERED: HYDROmorphone 1 MG/ML Syringe IVPUSH ONE (05:31)
[2018-10-15] MEDS: Sodium Chloride 0.9% 10 ML Syringe FLUSH PRN ×2 (05:40→07:03)
[2018-10-15] MEDS ORDERED: Diatrizoate Meglumine/Diatrizoate Sodium 37% 120 ML Bottle PO ONE (06:35)
[2018-10-15] MEDS ORDERED: Iopamidol 755 Mg/ML 200 ML Bottle IV ONE (06:35)
--- NOTE | 2018-10-15 06:40 | EDM.PDOC ---
ED HPI GENERAL MEDICAL PROBLEM - General Chief Complaint: Abdominal Pain Stated Complaint: NECK PAIN/ABDOMINAL PAIN/NAUSEA Time Seen by Provider: 10/15/18 05:24 Source of Information: Reports: Patient History Limitations: Reports: No Limitations - History of Present Illness INITIAL COMMENTS - FREE TEXT/NARRATIVE: The patient presents with neck pain, abdominal pain and nausea. She started with the neck pain a couple days ago. She has chronic neck pain and was at physical therapy. She is not sure if she over did it. She then developed some abdominal pain yesterday with nausea. The pain is in the upper abdomen. She has nausea but no vomiting. She has no fever but she does have chills. She has no chest pain or shortness of breath. She has a history of pancreatitis with normal pancreatic enzymes but changes seen on CT. She had a flare up in April. A cause for the pancreatitis was not found. Her gallbladder was checked and that was fine. Onset: Gradual Duration: Day(s): Location: Reports: Abdomen Quality: Reports: Sharp Severity: Moderate Improves with: Reports: None Worsens with: Reports: None Associated Symptoms: Reports: Fever/Chills, Nausea/Vomiting. Denies: Chest Pain , Cough, Headaches, Shortness of Breath Abdomen Pain Score (Numeric/FACES): 7 - Related Data Allergies Allergy/AdvReac Type Severity Reaction Status Date / Time latex Allergy Hives Verified 10/15/18 05:29 Home Meds: Home Meds Calcium Carbonate [Calcium] 1,000 mg PO DAILY 08/12/17 [History] Cholecalciferol (Vitamin D3) [Vitamin D] 1 tab PO DAILY 08/12/17 [History] Citalopram Hydrobromide [Celexa] 20 mg PO DAILY 08/12/17 [History] Fish Oil/[place]-3 Fatty Acids [Fish Oil 1,000 MG] 1 tab PO DAILY 08/12/17 [ History] Levothyroxine Sodium 88 mcg PO DAILY 08/12/17 [History] Multivitamin [Multivitamins] 1 tab PO DAILY 08/12/17 [History] Acetaminophen/oxyCODONE [Percocet 325-5 MG] 1 tab PO Q4HR PRN #20 tab 05/05/18 [ Rx] Ondansetron [Zofran ODT] 4 mg PO Q6H PRN #20 tab.dis 05/05/18 [Rx] Gabapentin [Neurontin] 600 mg PO BEDTIME 10/15/18 [History] Gluc 2KCl/Chondr/Laron Hy/Hy Ac [Glucosamine & Chondroitin Cap] 1 cap PO DAILY [History] Hydrocodone/Acetaminophen [Hydrocodon-Acetaminophen 5-325] 1 - 2 each PO Q6HR PRN #20 tablet 10/15/18 [Rx] Hydroxychloroquine Sulfate [Plaquenil] 400 mg PO DAILY 10/15/18 [History] Ibuprofen [Ibu-200] 200 mg PO Q4HR PRN 10/15/18 [History] Omeprazole 20 mg PO DAILY 10/15/18 [History] Ondansetron [Zofran ODT] 4 mg PO Q6H PRN #20 tab.dis 10/15/18 [Rx] Past Medical History HEENT History: Reports: Impaired Vision Cardiovascular History: Reports: High Cholesterol Respiratory History: Reports: Other (See Below) Other Respiratory History: allergies Gastrointestinal History: Reports: Pancreatitis Genitourinary History: Reports: None INSEAMER History: Reports: Musculoskeletal History: Reports: Arthritis, Neck Pain, Chronic Other Musculoskeletal History: in December had high rheumnatoid factor and is to see doctor in May, 2918 Psychiatric History: Reports: Anxiety Endocrine/Metabolic History: Reports: Hypothyroidism Dermatologic History: Reports: Eczema - Infectious Disease History Infectious Disease History: Reports: Chicken Pox, Measles, Mumps - Past Surgical History GI Surgical History: Reports: Appendectomy Female Surgical History: Reports: Hysterectomy, Tubal Ligation Social & Family History - Family History Family Medical History: Noncontributory - Tobacco Use Smoking Status *Q: Never Smoker - Caffeine Use Caffeine Use: Reports: Coffee - Recreational Drug Use Recreational Drug Use: No ED ROS GENERAL - Review of Systems Review Of Systems: See Below Constitutional: Reports: Chills. Denies: Fever HEENT: Reports: No Symptoms Respiratory: Reports: No Symptoms Cardiovascular: Reports: No Symptoms Endocrine: Reports: No Symptoms GI/Abdominal: Reports: Abdominal Pain, Nausea. Denies: Diarrhea, Vomiting : Reports: No Symptoms Musculoskeletal: Reports: Neck Pain ED EXAM, GI/ABD - Physical Exam Exam: See Below Exam Limited By: No Limitations General Appearance: Alert, No Apparent Distress Ears: Normal External Exam Nose: Normal Inspection Head: Atraumatic, Normocephalic Neck: Tender Lateral Respiratory/Chest: No Respiratory Distress, Lungs Clear, Normal Breath Sounds Cardiovascular: Regular Rate, Rhythm, No Edema, No Murmur GI/Abdominal Exam: Soft, No Organomegaly, Tender (Moderate tenderness to the epigastric and left upper abdomen) Back Exam: Normal Inspection Extremities: Normal Inspection EKG INTERPRETATION EKG Date: 10/15/18 Time: 05:44 Rhythm: Other (Sinus bradycardia) Rate (Beats/Min): 57 [place]: Normal P-Wave: Present QRS: Normal ST-T: Normal QT: Normal EKG Interpretation Comments: PAC Course - Vital Signs Last Recorded V/S: Last Vital Signs Temp 97.2 F 10/15/18 05:13 Pulse 64 10/15/18 05:13 Resp 20 10/15/18 05:13 BP 125/59 L 10/15/18 05:13 Pulse Ox 99 10/15/18 05:13 - Orders/Labs/Meds Orders: Active Orders 24 hr Category Date Time Status Cardiac Monitoring [RC] . DIRECTED Care 10/15/18 05:29 Active EKG Documentation Completion [RC] STAT Care 10/15/18 05:30 Active Peripheral IV Care [RC] . DIRECTED Care 10/15/18 05:29 Active UA W/MICROSCOPIC [URIN] Stat Lab 10/15/18 07:40 Ordered HYDROmorphone [Dilaudid] Med 10/15/18 07:45 Once 0.5 mg IVPUSH ONETIME ONE Sodium Chloride 0.9% [Normal Saline] 1,000 ml Med 10/15/18 05:30 Active IV .BOLUS Sodium Chloride 0.9% [Saline Flush] Med 10/15/18 05:29 Active 10 ml FLUSH ASDIRECTED PRN ED Antiemetic Medication Reflex [OM.PC] Stat Oth 10/15/18 05:29 Ordered Peripheral IV Insertion Adult [OM.PC] Stat Oth 10/15/18 05:29 Ordered Medication Orders Sodium Chloride (Normal Saline) 1,000 mls @ 1,000 mls/hr IV .BOLUS LUCRECIA Last Admin: 10/15/18 05:38 Dose: 1,000 mls/hr Sodium Chloride (Saline Flush) 10 ml FLUSH ASDIRECTED PRN PRN Reason: Keep Vein Open Last Admin: 10/15/18 07:03 Dose: 10 ml Admin: 10/15/18 05:40 Dose: 10 ml Labs: Laboratory Tests 10/15/18 10/15/18 Range/Units 05:16 05:16 WBC 13.76 H (3.98-10.04) K/mm3 RBC 3.50 L (3.98-5.22) M/mm3 Hgb 11.1 L (11.2-15.7) gm/L Hct 34.1 (34.1-44.9) % MCV 97.4 H (79.4-94.8) fl MCH 31.7 (25.6-32.2) pg MCHC 32.6 (32.2-35.5) g/dl RDW Std Deviation 47.0 H (36.4-46.3) fL Plt Count 305 (182-369) K/mm3 MPV 9.1 L (9.4-12.3) fl Neut % (Auto) 83.1 H (34.0-71.1) % Lymph % (Auto) 8.9 L (19.3-51.7) % [place] % (Auto) 6.8 (4.7-12.5) % Eos % (Auto) 0.9 (0.7-5.8) Baso % (Auto) 0.2 (0.1-1.2) % Neut # (Auto) 11.42 H (1.56-6.13) K/mm3 Lymph # (Auto) 1.23 (1.18-3.74) K/mm3 [place] # (Auto) 0.93 H (0.24-0.36) K/mm3 Eos # (Auto) 0.13 (0.04-0.36) K/mm3 Baso # (Auto) 0.03 (0.01-0.08) K/mm3 Manual Slide Review Abnormal smear Sodium 134 L (136-145) mEq/L Potassium 4.3 (3.5-5.1) mEq/L Chloride 99 (98-107) mEq/L Carbon Dioxide 27 (21-32) mEq/L Anion Gap 12.3 (5-15) BUN 11 (7-18) mg/dL Creatinine 1.0 (0.55-1.02) mg/dL Est Cr Clr Drug Dosing 57.33 mL/min Estimated GFR (MDRD) 56 (>60) mL/min BUN/Creatinine Ratio 11.0 L (14-18) Glucose 111 (80-115) mg/dL Calcium 9.5 (8.5-10.1) mg/dL Total Bilirubin 0.6 (0.2-1.0) mg/dL AST 18 (15-37) U/L ALT 23 (14-59) U/L Alkaline Phosphatase 69 (46-116) U/L Troponin I < 0.017 (0.00-0.056) ng/mL C-Reactive Protein 4.8 H* (<1.0) mg/dL Total Protein 8.1 (6.4-8.2) g/dl Albumin 3.4 (3.4-5.0) g/dl Globulin 4.7 gm/dL Albumin/Globulin Ratio 0.7 L (1-2) Amylase 75 (25-115) U/L Lipase 360 (73-393) U/L Meds: Medications Generic Name Dose Route Start Last Admin Trade Name Freq PRN Reason Stop Dose Admin Sodium Chloride 1,000 mls @ 1,000 mls/hr 10/15/18 05:30 10/15/18 05:38 Normal Saline IV 1,000 mls/hr .BOLUS LUCRECIA Administration Sodium Chloride 10 ml 10/15/18 05:29 10/15/18 07:03 Saline Flush FLUSH 10 ml ASDIRECTED PRN Administration Keep Vein Open Discontinued Medications Generic Name Dose Route Start Last Admin Trade Name Freq PRN Reason Stop Dose Admin Diatrizoate Meglum/Diatrizoate Sod 90 ml 10/15/18 06:35 10/15/18 07:04 Gastrografin 37% PO 10/15/18 06:36 90 ml ONETIME ONE Administration Hydromorphone HCl 1 mg 10/15/18 05:31 10/15/18 05:41 Dilaudid IVPUSH 10/15/18 05:32 1 mg ONETIME ONE Administration Iopamidol 100 ml 10/15/18 06:35 10/15/18 07:04 Isovue-370 (76%) IV 10/15/18 06:36 100 ml ONETIME ONE Administration Ketorolac Tromethamine 30 mg 10/15/18 07:28 Toradol IVPUSH 10/15/18 07:29 ONETIME ONE Ondansetron HCl 4 mg 10/15/18 05:29 10/15/18 05:39 Zofran IVPUSH 10/15/18 05:30 4 mg ONETIME ONE Administration - Re-Assessments/Exams Free Text/Narrative Re-Assessment/Exam: 10/15/18 06:41 I ordered an IV NS 1L bolus, zofran 4mg IV, dilaudid 1mg IV, labs, EKG, UA and a CT of her abdomen and pelvis. Her EKG shows a sinus bradycardia with no acute changes. Her WBC was elevated at 13.76. Her Hgb was a little low at 11.1. Her Na was a little low at 134. Her troponin was negative. Her CRP was elevated at 4.8. Her lipase was normal at 360. Her amylase was elevated at 75. She is still drinking the contrast at this time. 10/15/18 07:[address] shows mild inflammatory change around the head of the pancreas slightly more prominent than on prior exam. Mild edematous change is noted within the head and neck of the pancreas. Findings most likely represent recurrent pancreatitis. Other incidental findings as noted above. She feels better but she still has some neck pain. I ordered toradol 30mg IV. 10/15/18 07:46 I also ordered some dilaudid 0.5mg IV. Departure - Departure Time of Disposition: 07:50 Disposition: Home, Self-Care 01 Condition: Good Clinical Impression: Pancreatitis Qualifiers: Chronicity: acute Pancreatitis type: other Acute pancreatitis complication: no infection or necrosis Qualified Code(s): K85.80 - Other acute pancreatitis without necrosis or infection - Discharge Information *PRESCRIPTION DRUG MONITORING PROGRAM REVIEWED*: No *COPY OF PRESCRIPTION DRUG MONITORING REPORT IN PATIENT ROSI: No Prescriptions: Hydrocodone/Acetaminophen [Hydrocodon-Acetaminophen 5-325] 1 - 2 each PO Q6HR PRN #20 tablet PRN Reason: Pain Ondansetron [Zofran ODT] 4 mg PO Q6H PRN #20 tab.dis PRN Reason: Nausea\vomiting Referrals: Linda Sanchez MD [Primary Care Provider] - 1 Week Luis Byrne MD [Ordering Only Provider] - 1 Week Forms: ED Department Discharge Additional Instructions: Eat a clear liquid diet for a day or two. That would include broth, clear jello , juices and water. Advance your diet as tolerated. Take the zofran every 6 hours as needed for nausea and vomiting. Take the hydrocodone as needed for pain. Please return if you are worse. Follow up with your doctor and a GI specialist such as Dr Byrne in [place] [facility]. - My Orders Last 24 Hours: My Active Orders 10/15/18 05:29 Cardiac Monitoring [RC] . DIRECTED Peripheral IV Care [RC] . DIRECTED Sodium Chloride 0.9% [Saline Flush] 10 ml FLUSH ASDIRECTED PRN ED Antiemetic Medication Reflex [OM.PC] Stat Peripheral IV Insertion Adult [OM.PC] Stat 10/15/18 05:30 EKG Documentation Completion [RC] STAT Sodium Chloride 0.9% [Normal Saline] 1,000 ml IV .BOLUS 10/15/18 07:40 UA W/MICROSCOPIC [URIN] Stat 10/15/18 07:45 HYDROmorphone [Dilaudid] 0.5 mg IVPUSH ONETIME ONE - Assessment/Plan Last 24 Hours: My Active Orders 10/15/18 05:29 Cardiac Monitoring [RC] . DIRECTED Peripheral IV Care [RC] . DIRECTED Sodium Chloride 0.9% [Saline Flush] 10 ml FLUSH ASDIRECTED PRN ED Antiemetic Medication Reflex [OM.PC] Stat Peripheral IV Insertion Adult [OM.PC] Stat 10/15/18 05:30 EKG Documentation Completion [RC] STAT Sodium Chloride 0.9% [Normal Saline] 1,000 ml IV .BOLUS 10/15/18 07:40 UA W/MICROSCOPIC [URIN] Stat 10/15/18 07:45 HYDROmorphone [Dilaudid] 0.5 mg IVPUSH ONETIME ONE
[2018-10-15] MEDS ORDERED: Ketorolac 30 MG/ML SDV IVPUSH ONE (07:28)
--- NOTE | 2018-10-15 07:37 | CT ---
CT abdomen and pelvis Technique: Multiple axial sections were obtained from above the dome of the diaphragm inferiorly through the pubic symphysis. Intravenous and oral contrast was utilized. Delayed images were also obtained through the abdomen and pelvis. Comparison: Previous CT exam of 05/05/18. Findings: Small portion of the visualized lung bases show nothing acute. Liver contains no focal abnormality. Gallbladder contains no calcified gallstones. Small amount of gastroesophageal reflux of contrast is noted within the distal esophagus. Spleen appears within normal limits. Adrenal glands show no nodule. Kidneys show symmetric contrast enhancement. Delayed images show contrast excretion into both ureters as well as small amount of contrast seen within the bladder. Mild inflammatory change is identified around the head of the pancreas. This appears slightly more prominent than on previous exam. There is some low density being seen within the head and neck of the pancreas presumably due to edema. Aorta shows atherosclerotic calcification without aneurysm. No retroperitoneal adenopathy or mesenteric abnormalities are seen. No pelvic mass or adenopathy is seen. Appendix not definitely visualized. Minimal sigmoid diverticuli are seen without diverticulitis. Bone window settings were reviewed which show mild scattered degenerative change within the spine. Impression: 1. Mild inflammatory change around the head of the pancreas slightly more prominent than on prior exam. Mild edematous change is noted within the head and neck of the pancreas. Findings most likely represent recurrent pancreatitis. 2. Other incidental findings as noted above. Diagnostic code #3
[2018-10-15] MEDS ORDERED: HYDROmorphone 0.5 MG/0.5 ML Syringe IVPUSH ONE (07:45)
== END 2018-10-15 08:12 | disposition home or self-care (01) ==
LOC: JD.ED 05:06
DX: K85.80 Other acute pancreatitis without necrosis or infection (principal); E78.00 Pure hypercholesterolemia, unspecified; Z79.899 Other long term (current) drug therapy; Z91.040 Latex allergy status
CPT/HCPCS: 36415; 74177; 80053; 81001; 82150; 83690; 84484; 85025; 86140; 93005; 96361; 96374; 96375; 96376; 99284; J1170; J1885; J2405; J7040; Q9963; Q9967; 93010

== ENCOUNTER 2018-10-16 08:11 | Emergency (ER) | payer BC ==
[2018-10-16 08:19] VITALS: BP 138/63
--- NOTE | 2018-10-16 08:33 | EDM.PDOC ---
ED HPI GENERAL MEDICAL PROBLEM - General Chief Complaint: Abdominal Pain Stated Complaint: PAIN AND FEELS SICK Time Seen by Provider: 10/16/18 08:33 Source of Information: Reports: Patient History Limitations: Reports: No Limitations - History of Present Illness INITIAL COMMENTS - FREE TEXT/NARRATIVE: 63-year-old female presents to the ED with diffuse upper abdominal pain primarily felt across the upper abdomen more so on the left than on the right. Patient was seen through the ED 24 hours ago with similar type pain and did have a CT done which showed some diffuse swelling of the head of the pancreas and some edema suggesting localized pancreatitis to the head. This is occurred on 3 or 4 occasions in the last 2 years. Patient had only some mild chicken broth yesterday and some water. Stayed awake most of the night with pain. Pain radiates through to her back just underneath her shoulder blades. Associated nausea and tried to make herself vomit but could not. Stools have been loose since IV contrast was given yesterday. Some degree of floating on the toilet water suggesting stearrhea. She has her gallbladder no stones of been identified HIDA scan was done about a year ago and was negative. Therefore the cause of recurrent pancreatitis is been on clarified. She drinks alcohol very rarely such as the occasional glass of wine. She is on a host of medications that I will look at to see if they could be playing a role in recurrent pancreatitis. At present she presents dehydrated weak dizzy and nauseated with abdominal pain. She has chronic left-sided neck pain due to degenerative disc disease at C3-C4 which is causing a good deal of discomfort as well. Is scheduled to go to the [facility] for injections in this area in the next month. Denies any past history of peptic ulcer disease. Onset: Gradual Onset Date: 10/14/18 Onset Time: 20:00 Duration: Day(s):, Constant, Getting Worse Location: Reports: Abdomen Quality: Reports: Ache (Across the upper abdomen worse on the left upper abdomen than the right. Described as a deep aching pain and is constant. Made worse by eating) Severity: Moderate (8 out of 10) Improves with: Reports: None Worsens with: Reports: Other Context: Denies: Activity (Drinking and eating seemed to make it worse), Exercise, Lifting, Sick Contact, Trauma, Other Associated Symptoms: Reports: Loss of Appetite, Malaise, Nausea/Vomiting, Shortness of Breath, Weakness (Nausea without vomiting), Other. 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 Has taken no pain medications.) Right Upper Abdominal Pain Score (Numeric/FACES): 8 - Related Data Allergies Allergy/AdvReac Type Severity Reaction Status Date / Time latex Allergy Hives Verified 10/16/18 08:19 Home Meds: Home Meds Calcium Carbonate [Calcium] 1,000 mg PO DAILY 08/12/17 [History] Cholecalciferol (Vitamin D3) [Vitamin D] 1 tab PO DAILY 08/12/17 [History] Citalopram Hydrobromide [Celexa] 20 mg PO DAILY 08/12/17 [History] Fish Oil/[place]-3 Fatty Acids [Fish Oil 1,000 MG] 1 tab PO DAILY 08/12/17 [ History] Levothyroxine Sodium 88 mcg PO DAILY 08/12/17 [History] Multivitamin [Multivitamins] 1 tab PO DAILY 08/12/17 [History] Acetaminophen/oxyCODONE [Percocet 325-5 MG] 1 tab PO Q4HR PRN #20 tab 05/05/18 [ Rx] Ondansetron [Zofran ODT] 4 mg PO Q6H PRN #20 tab.dis 05/05/18 [Rx] Gabapentin [Neurontin] 600 mg PO BEDTIME 10/15/18 [History] Gluc 2KCl/Chondr/Laron Hy/Hy Ac [Glucosamine & Chondroitin Cap] 1 cap PO DAILY [History] Hydrocodone/Acetaminophen [Hydrocodon-Acetaminophen 5-325] 1 - 2 each PO Q6HR PRN #20 tablet 10/15/18 [Rx] Hydroxychloroquine Sulfate [Plaquenil] 400 mg PO DAILY 10/15/18 [History] Ibuprofen [Ibu-200] 200 mg PO Q4HR PRN 10/15/18 [History] Omeprazole 20 mg PO DAILY 10/15/18 [History] Ondansetron [Zofran ODT] 4 mg PO Q6H PRN #20 tab.dis 10/15/18 [Rx] Promethazine [Phenergan] 25 mg PO Q8H PRN #8 tab 10/16/18 [Rx] Past Medical History HEENT History: Reports: Impaired Vision Cardiovascular History: Reports: High Cholesterol Respiratory History: Reports: Other (See Below) Other Respiratory History: allergies Gastrointestinal History: Reports: Pancreatitis Genitourinary History: Reports: None [employer]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: Musculoskeletal History: Reports: Arthritis, Neck Pain, Chronic Other Musculoskeletal History: in December had high rheumnatoid factor and is to see doctor in May, 2918 Psychiatric History: Reports: Anxiety Endocrine/Metabolic History: Reports: Hypothyroidism Dermatologic History: Reports: Eczema - Infectious Disease History Infectious Disease History: Reports: Chicken Pox, Measles, Mumps - Past Surgical History GI Surgical History: Reports: Appendectomy Female Surgical History: Reports: Hysterectomy, Tubal Ligation Social & Family History - Family History Family Medical History: Noncontributory - Tobacco Use Smoking Status *Q: Never Smoker - Caffeine Use Caffeine Use: Reports: Coffee - Alcohol Use Alcohol Use History: Yes Days Per Week of Alcohol Use: 1 (May have the occasional glass of wine.) Alcohol Use Frequency: Rarely - Recreational Drug Use Recreational Drug Use: No - Living Situation & Occupation Living situation: Reports: Occupation: Employed ED ROS GENERAL - Review of Systems Review Of Systems: See Below Constitutional: Reports: Malaise, Weakness, Fatigue, Decreased Appetite, Weight Loss, Other. Denies: Fever, Chills HEENT: Reports: Glasses (Very nauseated.) Respiratory: Reports: No Symptoms, Shortness of Breath. Denies: Wheezing, Pleuritic Chest Pain, Cough, Sputum Cardiovascular: Reports: Lightheadedness. Denies: Chest Pain, Blood Pressure Problem, Claudication, Dyspnea on Exertion, Edema, Orthopnea, Palpitations Endocrine: Reports: Fatigue GI/Abdominal: Reports: Abdominal Pain, Diarrhea (Stools are loose but not watery.), Decreased Appetite, Nausea. Denies: Vomiting : Reports: No Symptoms Musculoskeletal: Reports: Neck Pain (Chronic cervical neck pain due to degenerative disc disease at C3-C4 with left arm radiculopathy. Scheduled to go to [facility] for injections into these area in the next month or so.) Skin: Reports: No Symptoms Neurological: Reports: Dizziness, Paresthesia (Occasionally. Season left foot and ankle area.), Weakness (Feels weak and dizzy.) Psychiatric: Reports: No Symptoms Hematologic/Lymphatic: Reports: No Symptoms Immunologic: Reports: No Symptoms ED EXAM, GI/ABD - Physical Exam Exam: See Below Exam Limited By: No Limitations General Appearance: Alert, WD/WN, Moderate Distress, Other (Appears to be require very uncomfortable. Vital signs are all normal.) Eyes: Bilateral: Normal Appearance (No scleral icterus.) Throat/Mouth: Normal Lips, Other (Tongue is very dry and coated.) Head: Atraumatic, Normocephalic Neck: Normal Inspection, Supple, Non-Tender. No: Carotid Bruit, Lymphadenopathy (L), Lymphadenopathy (R), Thyromegaly Respiratory/Chest: No Respiratory Distress, Lungs Clear, Normal Breath Sounds, Chest Non-Tender Cardiovascular: Normal Peripheral Pulses, Regular Rate, Rhythm, No Edema, No Gallop, No Murmur, No Rub GI/Abdominal Exam: Soft, No Organomegaly, Distended, Tender (Tenderness mostly in the epigastrium and Rt upper quadrant along the costal margin.), Abnormal Bowel Sounds (Bowel sounds are fairly quiescent throughout all 4 quadrants.), Other (Moreno sign is negative.) Back Exam: Normal Inspection, Full Range of Motion. No: CVA Tenderness (L), CVA Tenderness (R) Extremities: Normal Inspection, Normal Range of Motion, Non-Tender Neurological: Alert, Oriented, CN II-XII Intact, Normal Cognition Psychiatric: Normal Affect, Normal Mood Skin Exam: Warm, Dry, Intact, Normal Color, No Rash EKG INTERPRETATION EKG Date: 10/16/18 Time: 09:00 Rhythm: Other (Sinus bradycardia) Rate (Beats/Min): 57 Arnold: LAD-Left Arnold Deviation (Mild left axis deviation -6) P-Wave: Enlarged QRS: Other (Consider left atrial enlargement. Decreased voltage in the limb leads. Small Q waves leads 1 and aVL less than 25% of the QRS complex considered insignificant.) ST-T: Normal QT: Normal EKG Interpretation Comments: Abnormal ECG Course - Vital Signs Last Recorded V/S: Last Vital Signs Temp 37.1 C 10/16/18 08:16 Pulse 64 10/16/18 08:16 Resp 17 10/16/18 08:16 BP 138/63 10/16/18 08:16 Pulse Ox 97 10/16/18 08:16 - Orders/Labs/Meds Orders: Active Orders 24 hr Category Date Time Status EKG Documentation Completion [RC] STAT Care 10/16/18 08:47 Active Labs: Laboratory Tests 10/16/18 10/16/18 10/16/18 Range/Units 08:50 08:50 08:50 WBC 13.35 H (3.98-10.04) K/mm3 RBC 3.28 L (3.98-5.22) M/mm3 Hgb 10.2 L (11.2-15.7) gm/L Hct 31.9 L (34.1-44.9) % MCV 97.3 H (79.4-94.8) fl MCH 31.1 (25.6-32.2) pg MCHC 32.0 L (32.2-35.5) g/dl RDW Std Deviation 46.1 (36.4-46.3) fL Plt Count 255 (182-369) K/mm3 MPV 8.7 L (9.4-12.3) fl Neutrophils % (Manual) 84 H (40-60) % Band Neutrophils % 0 (0-10) % Lymphocytes % (Manual) 12 L (20-40) % Atypical Lymphs % 0 % Monocytes % (Manual) 3 (2-10) % Eosinophils % (Manual) 0 L (0.7-5.8) % Basophils % (Manual) 1 (0.1-1.2) Platelet Estimate Adequate Hypochromasia 1+ slight RBC Morph Comment Abnormal ESR (0-20) mm/hr Sodium 134 L (136-145) mEq/L Potassium 4.3 (3.5-5.1) mEq/L Chloride 98 (98-107) mEq/L Carbon Dioxide 26 (21-32) mEq/L Anion Gap 14.3 (5-15) BUN 13 (7-18) mg/dL Creatinine 1.0 (0.55-1.02) mg/dL Est Cr Clr Drug Dosing 47.01 mL/min Estimated GFR (MDRD) 56 (>60) mL/min BUN/Creatinine Ratio 13.0 L (14-18) Glucose 79 L (80-115) mg/dL Lactic Acid (0.4-2.0) mmol/L Calcium 9.6 (8.5-10.1) mg/dL Magnesium 2.0 (1.8-2.4) mg/dl Total Bilirubin 0.6 (0.2-1.0) mg/dL GGT 1 L (5-55) U/L AST 17 (15-37) U/L ALT 22 (14-59) U/L Alkaline Phosphatase 63 (46-116) U/L C-Reactive Protein 15.5 H* (<1.0) mg/dL Total Protein 7.7 (6.4-8.2) g/dl Albumin 3.2 L (3.4-5.0) g/dl Globulin 4.5 gm/dL Albumin/Globulin Ratio 0.7 L (1-2) Triglycerides (<150) mg/dL Amylase 47 (25-115) U/L Lipase 178 (73-393) U/L Urine Color (Yellow) Urine Appearance (Clear) Urine pH (5.0-8.0) Ur Specific [place] (1.005-1.030) Urine Protein (Negative) Urine Glucose (UA) (Negative) Urine Ketones (Negative) Urine Occult Blood (Negative) Urine Nitrite (Negative) Urine Bilirubin (Negative) Urine Urobilinogen (0.2-1.0) Ur Leukocyte Esterase (Negative) Urine RBC (0-5) /hpf Urine WBC (0-5) /hpf Ur Epithelial Cells (0-5) /hpf Urine Bacteria (FEW) /hpf Urine Mucus (FEW) /hpf Ketones 1.45 (0.0-0.3) mM 10/16/18 10/16/18 10/16/18 Range/Units 08:50 08:50 09:00 WBC (3.98-10.04) K/mm3 RBC (3.98-5.22) M/mm3 Hgb (11.2-15.7) gm/L Hct (34.1-44.9) % MCV (79.4-94.8) fl MCH (25.6-32.2) pg MCHC (32.2-35.5) g/dl RDW Std Deviation (36.4-46.3) fL Plt Count (182-369) K/mm3 MPV (9.4-12.3) fl Neutrophils % (Manual) (40-60) % Band Neutrophils % (0-10) % Lymphocytes % (Manual) (20-40) % Atypical Lymphs % % Monocytes % (Manual) (2-10) % Eosinophils % (Manual) (0.7-5.8) % Basophils % (Manual) (0.1-1.2) Platelet Estimate Hypochromasia RBC Morph Comment ESR 91 H (0-20) mm/hr Sodium (136-145) mEq/L Potassium (3.5-5.1) mEq/L Chloride (98-107) mEq/L Carbon Dioxide (21-32) mEq/L Anion Gap (5-15) BUN (7-18) mg/dL Creatinine (0.55-1.02) mg/dL Est Cr Clr Drug Dosing mL/min Estimated GFR (MDRD) (>60) mL/min BUN/Creatinine Ratio (14-18) Glucose (80-115) mg/dL Lactic Acid 0.9 (0.4-2.0) mmol/L Calcium (8.5-10.1) mg/dL Magnesium (1.8-2.4) mg/dl Total Bilirubin (0.2-1.0) mg/dL GGT (5-55) U/L AST (15-37) U/L ALT (14-59) U/L Alkaline Phosphatase (46-116) U/L C-Reactive Protein (<1.0) mg/dL Total Protein (6.4-8.2) g/dl Albumin (3.4-5.0) g/dl Globulin gm/dL Albumin/Globulin Ratio (1-2) Triglycerides 54 (<150) mg/dL Amylase (25-115) U/L Lipase (73-393) U/L Urine Color (Yellow) Urine Appearance (Clear) Urine pH (5.0-8.0) Ur Specific [place] (1.005-1.030) Urine Protein (Negative) Urine Glucose (UA) (Negative) Urine Ketones (Negative) Urine Occult Blood (Negative) Urine Nitrite (Negative) Urine Bilirubin (Negative) Urine Urobilinogen (0.2-1.0) Ur Leukocyte Esterase (Negative) Urine RBC (0-5) /hpf Urine WBC (0-5) /hpf Ur Epithelial Cells (0-5) /hpf Urine Bacteria (FEW) /hpf Urine Mucus (FEW) /hpf Ketones (0.0-0.3) mM 10/16/19 Range/Units 09:00 WBC (3.98-10.04) K/mm3 RBC (3.98-5.22) M/mm3 Hgb (11.2-15.7) gm/L Hct (34.1-44.9) % MCV (79.4-94.8) fl MCH (25.6-32.2) pg MCHC (32.2-35.5) g/dl RDW Std Deviation (36.4-46.3) fL Plt Count (182-369) K/mm3 MPV (9.4-12.3) fl Neutrophils % (Manual) (40-60) % Band Neutrophils % (0-10) % Lymphocytes % (Manual) (20-40) % Atypical Lymphs % % Monocytes % (Manual) (2-10) % Eosinophils % (Manual) (0.7-5.8) % Basophils % (Manual) (0.1-1.2) Platelet Estimate Hypochromasia RBC Morph Comment ESR (0-20) mm/hr Sodium (136-145) mEq/L Potassium (3.5-5.1) mEq/L Chloride (98-107) mEq/L Carbon Dioxide (21-32) mEq/L Anion Gap (5-15) BUN (7-18) mg/dL Creatinine (0.55-1.02) mg/dL Est Cr Clr Drug Dosing mL/min Estimated GFR (MDRD) (>60) mL/min BUN/Creatinine Ratio (14-18) Glucose (80-115) mg/dL Lactic Acid (0.4-2.0) mmol/L Calcium (8.5-10.1) mg/dL Magnesium (1.8-2.4) mg/dl Total Bilirubin (0.2-1.0) mg/dL GGT (5-55) U/L AST (15-37) U/L ALT (14-59) U/L Alkaline Phosphatase (46-116) U/L C-Reactive Protein (<1.0) mg/dL Total Protein (6.4-8.2) g/dl Albumin (3.4-5.0) g/dl Globulin gm/dL Albumin/Globulin Ratio (1-2) Triglycerides (<150) mg/dL Amylase (25-115) U/L Lipase (73-393) U/L Urine Color Yellow (Yellow) Urine Appearance Clear (Clear) Urine pH 6.0 (5.0-8.0) Ur Specific [place] 1.020 (1.005-1.030) Urine Protein Trace H (Negative) Urine Glucose (UA) Negative (Negative) Urine Ketones 2+ H (Negative) Urine Occult Blood 1+ H (Negative) Urine Nitrite Negative (Negative) Urine Bilirubin Negative (Negative) Urine Urobilinogen 0.2 (0.2-1.0) Ur Leukocyte Esterase Trace H (Negative) Urine RBC 0-5 (0-5) /hpf Urine WBC 0-5 (0-5) /hpf Ur Epithelial Cells 0-5 (0-5) /hpf Urine Bacteria Few (FEW) /hpf Urine Mucus Not seen (FEW) /hpf Ketones (0.0-0.3) mM Meds: Medications Discontinued Medications Generic Name Dose Route Start Last Admin Trade Name Freq PRN Reason Stop Dose Admin Hydromorphone HCl 0.5 mg 10/16/18 08:45 10/16/18 09:01 Dilaudid IVPUSH 10/16/18 08:46 0.5 mg ONETIME ONE Administration Dextrose/Lactated Ringer's 1,000 mls @ 500 mls/hr 10/16/18 08:45 10/16/18 09: 01 Dextrose 5%-Lactated Ringers IV 500 mls/hr ASDIRECTED LUCRECIA Administration Promethazine HCl 25 mg/ Sodium 51 mls @ 100 mls/hr 10/16/18 10:09 10/16/18 10 :32 Chloride IV 10/16/18 10:39 100 mls/hr ONETIME ONE Administration Dextrose/Sodium Chloride 1,000 mls @ 999 mls/hr 10/16/18 11:45 10/16/18 12:29 Dextrose 5%-Normal Saline IV 999 mls/hr ASDIRECTED LUCRECIA Administration Metoclopramide HCl 7.5 mg 10/16/18 08:46 10/16/18 09:01 Reglan IVPUSH 10/16/18 08:47 7.5 mg ONETIME ONE Administration - Radiology Interpretation Free Text/Narrative:: 63-year-old female returns to the ED because of persistent right upper quadrant epigastric and left upper quadrant abdominal pain. Patient was seen through the ED yesterday morning and diagnosed with mild pancreatitis in the head of her pancreas. This is similar to findings on previous CT exams over the last 2 years. She believes this is her third or fourth attack of similar problems. She thought she could get through it on her own and was discharged home yesterday with Zofran and pain medicine. She states however the pain is worsening and nausea is uncontrolled with the Zofran. She is not vomited but wishes she could. She took a little bit of chicken broth yesterday in a bit of water only. She did have 3 or 4 loose stools after taking oral contrast for CT exam yesterday. Clinically she is volume depleted. Tongue is dry and coated. He is tender to palpation right upper quadrant of the abdomen and epigastrium with perhaps slight guarding but no rebound tenderness. Bowel sounds are very quiet sent throughout. Plan: D5 Ringer's lactate at 500 mils an hour. Repeat labs to be done. Will be given Dilaudid 0.5 mg IV to see how it affects her because she is on gabapentin. Reglan 7.5 mg IV for nausea relief. She will likely require admission to the hospital for IV fluids until her pancreatitis settles down. Of note amylase was 75 yesterday and lipase was 360. CRP was 4.6 - Re-Assessments/Exams Free Text/Narrative Re-Assessment/Exam: 10/16/18 09:27 KUB reveals most of the CT oral contrast to be within the colon. There is a few scattered minimal air-fluid levels in the mid abdomen suggestive of an ileus like pattern. There is air in the rectal vault. 10/16/18 10:08 she reports pain is better and tolerable. She remains quite nauseated however. We'll give her Phenergan 25 mg IV. 10/16/18 10:19 Labs are now back. White count is elevated at 13.35 with 84% neutrophils and no band cells reported hemoglobin is 10.2 with hematocrit of 31.9. MCV is slightly elevated at 97.3. Platelet count is 255,000. Sodium slightly low at 134. Potassium 4.3. Chloride is 98 with a bicarbonate of 26. Anion gap is 14.3. BUN is 13. Creatinine is 1.0. Estimated GFR is 56. Glucose is slightly low at 79. Lactic acid 0.9. Calcium 9.6. Magnesium 2.0. Bilirubin 0.6. GGT is 1 AST is 17 ALT is 22. Alk phosphatase is 63. C-reactive protein is 15.5. Total protein is 7.7. Albumin fraction is 3.2. Triglycerides are 54. Amylase is 47 and lipase is 178. Urinalysis shows 2+ ketones. 1+ occult blood trace of leukocyte esterase. Serum ketones are elevated at 1.45. Therefore her pancreatic enzymes are improved compared to yesterday. She is mostly volume depleted and still having quite significant nausea and vomiting. We'll see if we can fix her up with IV fluids rehydration for making decision whether knee she needs to be admitted. 10/16/18 11:34 patient reports nausea is much improved after Phenergan IV. Pain remains about the same very mild 1-2 out of 10. Plan I'm going to give her a second liter of IV fluids D5 normal saline in the hopes that we can correct her morning depletion and ketosis. This may stop her nausea and vomiting. Since her pancreatic enzymes are much better than yesterday she may be able to go home versus having to stay in the hospital. 10/16/18 13:28 patient is resting comfortably and actually has been sleeping for the last hour. Will reassess after she has completed 2 L of IV fluid. 10/16/18 14:09 patient still has mild nausea but her pain is much better. I feel at this time that her pancreatitis is resolving. I'm going to place her on Phenergan 25 mg tablet every 8 hours for 2 days to keep the nausea at bay and she has hydrocodone tablets that she can use on as-needed basis for pain relief. Advised plenty of fluids such as Gatorade or Powerade to rehydrate and carbohydrates mainly as a diet for the next few days. She will return to the ED if pain worsens or vomiting reoccurs. He needs to follow up to have an MRI of her abdomen done to look better at the head of her pancreas as we do not have any reason for her to develop recurrent bouts of pancreatitis. There are is appears to be a low-grade inflammation or edema in the head of the pancreas only. He to rule out that there is no underlying mass. Departure - Departure Time of Disposition: 14:10 Disposition: Home, Self-Care 01 Condition: Fair Clinical Impression: Recurrent pancreatitis Abdominal pain Qualifiers: Abdominal location: upper abdomen, unspecified Qualified Code(s): R10.10 - Upper abdominal pain, unspecified - Discharge Information *PRESCRIPTION DRUG MONITORING PROGRAM REVIEWED*: Not Applicable *COPY OF PRESCRIPTION DRUG MONITORING REPORT IN PATIENT ROSI: Not Applicable Prescriptions: Promethazine [Phenergan] 25 mg PO Q8H PRN #8 tab PRN Reason: Relief of nausea Instructions: Acute Pancreatitis, [id number] Referrals: Linda Sanchez MD [Primary Care Provider] - Forms: ED Department Discharge Additional Instructions: Evaluation the emergency room today in regards to persistent right upper quadrant abdominal pain with the nausea associated nausea . Evaluation done to the ED yesterday confirmed that you had developed another bout of pancreatitis with swelling and edema of the head of the pancreas on CT exam. He return to the ED today primarily because of inability to eat and dehydration and persistent nausea and pain. Pain was treated with Dilaudid 0.5 mg IV which seemed to work very well. The nausea was more difficult to bring under control. Your initial dose of medicine for nausea was Reglan 7.5 mg. However due to persistent nausea Phenergan 25 mg is also given intravenously. This seemed to work much better. He received 2 L of IV fluids while in the ED to provide rehydration and correction of low sodium level in your blood. Treatment at home is plenty of fluids such as Gatorade/Powerade. Carbohydrate diet only keeping it very light for the next day or two. Suggest use of Phenergan tablets 25 mg every 8 hours for the next 2 days and then as needed. Hopefully by then the attack of pancreatitis has resolved since the levels were much improved as compared to yesterday. May use hydrocodone tablets one or 2 every 4-6 hours as needed for pain relief if needed. Hopefully the pancreatitis inflammation will resolve over the next 24-36 hours. Resume diet as tolerated. Of course if things deteriorate such as further vomiting or increased pain return to the ED. - My Orders Last 24 Hours: My Active Orders 10/16/18 08:47 EKG Documentation Completion [RC] STAT - Assessment/Plan Last 24 Hours: My Active Orders 10/16/18 08:47 EKG Documentation Completion [RC] STAT
[2018-10-16] MEDS ORDERED: Dextrose 5%-Lactated Ringers 1,000 ML IV SCH (08:45)
[2018-10-16] MEDS ORDERED: HYDROmorphone 1 MG/ML Syringe IVPUSH ONE (08:45)
[2018-10-16] MEDS ORDERED: Metoclopramide 10 MG/2 ML SDV IVPUSH ONE (08:46)
[2018-10-16] MEDS ORDERED: Promethazine 25 MG in Sodium Chloride 0.9% 50 ML IV ONE (10:09)
--- NOTE | 2018-10-16 10:23 | CR ---
Abdomen: Supine view of the abdomen was obtained. Comparison: Prior CT abdomen and pelvis CT exam of 10/15/18. Contrast is noted within the colon from recent CT study. Bowel gas pattern appears within normal limits. No abnormal calcifications or discrete soft tissue abnormality is seen. Bony structures are within normal limits for the patient's age. Impression: 1. Nothing acute seen on supine abdominal x-ray. Diagnostic code #2
[2018-10-16] MEDS ORDERED: Dextrose 5%-0.9% NaCl 1,000 ML IV SCH (11:45)
== END 2018-10-16 14:35 | disposition home or self-care (01) ==
LOC: JD.ED 08:11
DX: K86.1 Other chronic pancreatitis (principal); E78.00 Pure hypercholesterolemia, unspecified; Z91.040 Latex allergy status; Z79.899 Other long term (current) drug therapy
CPT/HCPCS: 36415; 74018; 80053; 81001; 82009; 82150; 82977; 83605; 83690; 83735; 84478; 85007; 85027; 85652; 86140; 93005; 96361; 96365; 96375; 99284; J1170; J2550; J2765; J7042; J7050

== ENCOUNTER 2020-01-17 18:03 | Inpatient (IN) | payer MEDICARE, BC ==
[2020-01-17] MEDS ORDERED: Ondansetron 4 MG/2 ML SDV IVPUSH ONE ×2 (18:38→22:33)
[2020-01-17] MEDS ORDERED: Sodium Chloride 0.9% 1,000 ML IV SCH (18:45)
[2020-01-17] MEDS ORDERED: Diatrizoate Meglumine/Diatrizoate Sodium 37% 120 ML Bottle PO ONE (19:53)
[2020-01-17] MEDS ORDERED: Iopamidol 612 MG/ML 100 ML Bottle IVPUSH ONE (19:53)
[2020-01-17] MEDS ORDERED: Sodium Chloride 0.9% 10 ML Syringe FLUSH PRN (19:53)
[2020-01-17] MEDS ORDERED: Metoclopramide 10 MG/2 ML SDV IVPUSH ONE (19:57)
--- NOTE | 2020-01-17 20:05 | EDM.PDOC ---
ED HPI GENERAL MEDICAL PROBLEM - General Chief Complaint: Abdominal Pain Stated Complaint: STOMACH PAIN Time Seen by Provider: 01/17/20 18:38 Source of Information: Reports: Patient, RN Notes Reviewed History Limitations: Reports: No Limitations - History of Present Illness INITIAL COMMENTS - FREE TEXT/NARRATIVE: Patient is a 64-year-old female who presents to the ED for the evaluation of her upper abdomen pain. Patient notes that pain kind of started Ray night with associated loose stools, nausea and abdominal pain in the upper abdomen region. Patient notes that she feels bloated/gassy, but is only had some watery type stools. She thought maybe she was constipated today, she had some abdomen pressure, and she felt the urge to go, but did take some Metamucil for this but it did not really relieve these issues. Patient notes she has a history of pancreatitis, and that her last flare was around 2 months ago. Patient notes that she did have 2 diarrhea type stools this morning. She is not been on any recent antibiotics. She states she felt chilled tonight, but is not had any fevers at home, has had nausea but no vomiting, no cough or shortness of breath. Patient notes she has had an appendectomy and a tubal ligation. Her primary care provider is Dr. Linda Sanchez. Abdomen Pain Score (Numeric/FACES): 8 - Related Data Allergies Allergy/AdvReac Type Severity Reaction Status Date / Time latex Allergy Hives Verified 01/17/20 18:22 nabumetone Allergy Hives Verified 01/17/20 18:24 Tuasono-Jqe-Lhg Reductase Allergy Lethargy Verified 01/17/20 18:24 Inhibitor Home Meds: Home Meds Citalopram Hydrobromide [Celexa] 20 mg PO DAILY 08/12/17 [History] Fish Oil/[place]-3 Fatty Acids [Fish Oil 1,000 MG] 1 tab PO DAILY 08/12/17 [History] Levothyroxine Sodium 88 mcg PO DAILY 08/12/17 [History] Multivitamin [Multivitamins] 1 tab PO DAILY 08/12/17 [History] Acetaminophen/oxyCODONE [Percocet 325-5 MG] 1 tab PO Q4HR PRN #20 tab 05/05/18 [Rx] Gabapentin [Neurontin] 600 mg PO BEDTIME 10/15/18 [History] Glucosam/Chondr/Collagn/Hyalur [Glucosamine & Chondroitin Cap] 1 cap PO DAILY 10/15/18 [History] Hydroxychloroquine Sulfate [Plaquenil] 400 mg PO DAILY 10/15/18 [History] Ibuprofen [Ibu-200] 200 mg PO Q4HR PRN 10/15/18 [History] Alendronate Sodium [Fosamax] 70 mg PO DAILY 01/17/20 [History] Cyclobenzaprine [Flexeril] 5 mg PO TID PRN 01/17/20 [History] Diclofenac Sodium [Voltaren 1% Gel] 1 gm TOP QID PRN 01/17/20 [History] Folic Acid 1 mg PO DAILY 01/17/20 [History] Methotrexate 8 tab PO ASDIRECTED 01/17/20 [History] Past Medical History HEENT History: Reports: Impaired Vision Cardiovascular History: Reports: High Cholesterol Respiratory History: Reports: Other (See Below) Other Respiratory History: allergies Gastrointestinal History: Reports: Pancreatitis [employer]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: Musculoskeletal History: Reports: Arthritis, Neck Pain, Chronic Other Musculoskeletal History: in December had high rheumnatoid factor and is to see doctor in May, 2918 Psychiatric History: Reports: Anxiety Endocrine/Metabolic History: Reports: Hypothyroidism Dermatologic History: Reports: Eczema - Infectious Disease History Infectious Disease History: Reports: Chicken Pox, Measles, Mumps - Past Surgical History HEENT Surgical History: Reports: Cataract Surgery GI Surgical History: Reports: Appendectomy Female Surgical History: Reports: Hysterectomy, Tubal Ligation Social & Family History - Family History Family Medical History: Noncontributory - Tobacco Use Smoking Status *Q: Never Smoker Second Hand Smoke Exposure: No - Caffeine Use Caffeine Use: Reports: Coffee - Recreational Drug Use Recreational Drug Use: No - Living Situation & Occupation Living situation: Reports: Occupation: Employed ED ROS GENERAL - Review of Systems Review Of Systems: Comprehensive ROS is negative, except as noted in HPI. ED EXAM, GI/ABD - Physical Exam Exam: See Below Exam Limited By: No Limitations General Appearance: Alert, WD/WN, No Apparent Distress Eyes: Bilateral: Normal Appearance Ears: Normal External Exam Nose: Normal Inspection Throat/Mouth: Normal Inspection, Normal Lips, Normal Teeth, Normal Gums, Normal Oropharynx, Normal Voice, No Airway Compromise Head: Atraumatic, Normocephalic Neck: Normal Inspection Respiratory/Chest: No Respiratory Distress, Lungs Clear, Normal Breath Sounds, No Accessory Muscle Use, Chest Non-Tender Cardiovascular: Normal Peripheral Pulses, Regular Rate, Rhythm, No Murmur GI/Abdominal Exam: Soft, Non-Tender, No Distention, No Mass, Abnormal Bowel Sounds (hypoactive bowel tones x 4 quadrants) Neurological: Alert, Oriented, Normal Cognition, No Motor/Sensory Deficits Psychiatric: Normal Affect, Normal Mood Skin Exam: Warm, Dry, Intact, Normal Color, No Rash Course - Vital Signs Last Recorded V/S: Last Vital Signs Temp 98.1 F 01/17/20 18:17 Pulse 80 01/17/20 18:17 Resp 20 01/17/20 18:17 BP 133/58 L 01/17/20 18:17 Pulse Ox 96 01/17/20 18:17 - Orders/Labs/Meds Orders: Active Orders 24 hr Category Date Time Status CORONAVIRUS COVID-19 YASH [MOLEC] Stat Lab 01/17/20 20:52 Ordered UA W/MICROSCOPIC [URIN] Stat Lab 01/17/20 20:54 Ordered Sodium Chloride 0.9% [Normal Saline] 1,000 ml Med 01/17/20 18:45 Active IV ASDIRECTED Sodium Chloride 0.9% [Normal Saline] 1,000 ml Med 01/17/20 20:54 Active IV ONETIME Sodium Chloride 0.9% [Saline Flush] Med 01/17/20 19:53 Active 10 ml FLUSH ONETIME PRN Medication Orders Sodium Chloride (Normal Saline) 1,000 mls @ 999 mls/hr IV ASDIRECTED [facility] Last Admin: 01/17/20 18:54 Dose: 999 mls/hr Documented by: WALESKA Sodium Chloride (Normal Saline) 1,000 mls @ 999 mls/hr IV ONETIME ONE Stop: 01/17/20 21:54 Sodium Chloride (Saline Flush) 10 ml FLUSH ONETIME PRN PRN Reason: Keep Vein Open Last Admin: 01/17/20 20:17 Dose: 10 ml Documented by: RICHARD Labs: Laboratory Tests 01/17/20 01/17/20 01/17/20 Range/Units 18:35 18:55 18:55 WBC 20.33 H (3.98-10.04) K/mm3 RBC 3.49 L (3.98-5.22) M/mm3 Hgb 11.6 (11.2-15.7) gm/dl Hct 35.4 (34.1-44.9) % MCV 101.4 H D (79.4-94.8) fl MCH 33.2 H (25.6-32.2) pg MCHC 32.8 (32.2-35.5) g/dl RDW Std Deviation 50.6 H (36.4-46.3) fL Plt Count 379 H D (182-369) K/mm3 MPV 8.1 L (9.4-12.3) fl Neutrophils % (Manual) 93 H (40-60) % Band Neutrophils % 2 (0-10) % Lymphocytes % (Manual) 2 L (20-40) % Atypical Lymphs % 0 % Monocytes % (Manual) 2 (2-10) % Eosinophils % (Manual) 0 L (0.7-5.8) % Basophils % (Manual) 1 (0.1-1.2) Toxic Granulation Few Platelet Estimate Adequate Anisocytosis 1+ slight Macrocytosis 1+ slight RBC Morph Comment Not Reportable Sodium 131 L (136-145) mEq/L Potassium 4.0 (3.5-5.1) mEq/L Chloride 96 L (98-107) mEq/L Carbon Dioxide 26 (21-32) mEq/L Anion Gap 13.0 (5-15) BUN 10 (7-18) mg/dL Creatinine 1.0 (0.55-1.02) mg/dL Est Cr Clr Drug Dosing 46.40 mL/min Estimated GFR (MDRD) 56 (>60) mL/min BUN/Creatinine Ratio 10.0 L (14-18) Glucose 94 (80-115) mg/dL Calcium 9.0 (8.5-10.1) mg/dL Total Bilirubin 0.7 (0.2-1.0) mg/dL GGT 9 (5-55) U/L AST 26 (15-37) U/L ALT 26 (14-59) U/L Alkaline Phosphatase 69 (46-116) U/L C-Reactive Protein (<1.0) mg/dL Total Protein 7.8 (6.4-8.2) g/dl Albumin 3.1 L (3.4-5.0) g/dl Globulin 4.7 gm/dL Albumin/Globulin Ratio 0.7 L (1-2) Lipase 1798 H (73-393) U/L 01/17/20 Range/Units 18:55 WBC (3.98-10.04) K/mm3 RBC (3.98-5.22) M/mm3 Hgb (11.2-15.7) gm/dl Hct (34.1-44.9) % MCV (79.4-94.8) fl MCH (25.6-32.2) pg MCHC (32.2-35.5) g/dl RDW Std Deviation (36.4-46.3) fL Plt Count (182-369) K/mm3 MPV (9.4-12.3) fl Neutrophils % (Manual) (40-60) % Band Neutrophils % (0-10) % Lymphocytes % (Manual) (20-40) % Atypical Lymphs % % Monocytes % (Manual) (2-10) % Eosinophils % (Manual) (0.7-5.8) % Basophils % (Manual) (0.1-1.2) Toxic Granulation Platelet Estimate Anisocytosis Macrocytosis RBC Morph Comment Sodium (136-145) mEq/L Potassium (3.5-5.1) mEq/L Chloride (98-107) mEq/L Carbon Dioxide (21-32) mEq/L Anion Gap (5-15) BUN (7-18) mg/dL Creatinine (0.55-1.02) mg/dL Est Cr Clr Drug Dosing mL/min Estimated GFR (MDRD) (>60) mL/min BUN/Creatinine Ratio (14-18) Glucose (80-115) mg/dL Calcium (8.5-10.1) mg/dL Total Bilirubin (0.2-1.0) mg/dL GGT (5-55) U/L AST (15-37) U/L ALT (14-59) U/L Alkaline Phosphatase (46-116) U/L C-Reactive Protein 16.2 H* (<1.0) mg/dL Total Protein (6.4-8.2) g/dl Albumin (3.4-5.0) g/dl Globulin gm/dL Albumin/Globulin Ratio (1-2) Lipase (73-393) U/L Meds: Medications Generic Name Dose Route Start Last Admin Trade Name Freq PRN Reason Stop Dose Admin Sodium Chloride 1,000 mls @ 999 mls/hr 01/17/20 18:45 01/17/20 18:54 Normal Saline IV 999 mls/hr ASDIRECTED LUCRECIA Administration Sodium Chloride 1,000 mls @ 999 mls/hr 01/17/20 20:54 Normal Saline IV 01/17/20 21:54 ONETIME ONE Sodium Chloride 10 ml 01/17/20 19:53 01/17/20 20:17 Saline Flush FLUSH 10 ml ONETIME PRN Administration Keep Vein Open Discontinued Medications Generic Name Dose Route Start Last Admin Trade Name Freq PRN Reason Stop Dose Admin Diatrizoate Meglum/Diatrizoate Sod 90 ml 01/17/20 19:53 01/17/20 20:17 Gastrografin 37% PO 01/17/20 19:54 90 ml ONETIME ONE Administration Iopamidol 100 ml 01/17/20 19:53 01/17/20 20:17 Isovue-300 (61%) IVPUSH 01/17/20 19:54 100 ml ONETIME ONE Administration Metoclopramide HCl 10 mg 01/17/20 19:57 01/17/20 20:08 Reglan IVPUSH 01/17/20 19:58 10 mg ONETIME ONE Administration Ondansetron HCl 4 mg 01/17/20 18:38 01/17/20 18:55 Zofran IVPUSH 01/17/20 18:39 4 mg ONETIME ONE Administration - Re-Assessments/Exams Free Text/Narrative Re-Assessment/Exam: 01/17/20 20:04 Patient presents to the ED for evaluation of her upper abdominal pain. Did order basic labs to include CBC, CMP, lipase, GGT, CRP for initial evaluation. Lipase is markedly elevated at 1798, sodium is mildly low at 131, and her white blood cell count was impressively high at 20.33 with 93% neutrophils and 2 bands reported does appear she is suffering from pancreatitis again. CT is still pending at this time. Patient was given 4 mg Zofran for nausea management along with some IV fluids, she will be given 10 mg IV Reglan for ongoing nausea management. 01/17/20 20:56 CT demonstrates findings that are compatible with recurrent pancreatitis, inflammatory change noted around the pancreas with mild low-density being seen within portions of pancreatic head, presumably due to edema. There is also increased stool within the right colon and cecum. Otherwise no acute findings on the CT. I did discuss the findings with the patient, I do believe she benefit from hospitalization. She does agree at this time. I have contacted Dr. Canales our hospitalist, and he does accept the patient for hospital management at this time. Patient will have the 15-minute coronavirus test done prior to hospital admission. Departure - Departure Time of Disposition: 20:57 Disposition: Admitted As Inpatient 65 Condition: Good Clinical Impression: Pancreatitis Qualifiers: Chronicity: acute Pancreatitis type: other Acute pancreatitis complication: unspecified Qualified Code(s): K85.80 - Other acute pancreatitis without necrosis or infection - Discharge Information *PRESCRIPTION DRUG MONITORING PROGRAM REVIEWED*: No *COPY OF PRESCRIPTION DRUG MONITORING REPORT IN PATIENT ROSI: No Referrals: Linda Sanchez MD [Primary Care Provider] - Forms: ED Department Discharge Sepsis Event Note (ED) - Evaluation Sepsis Screening Result: No Definite Risk - Focused Exam Vital Signs: Vital Signs Temp Pulse Resp BP Pulse Ox 01/17/20 18:17 98.1 F 80 20 133/58 L 96 - My Orders Last 24 Hours: My Active Orders 01/17/20 18:45 Sodium Chloride 0.9% [Normal Saline] 1,000 ml IV ASDIRECTED 01/17/20 19:53 Sodium Chloride 0.9% [Saline Flush] 10 ml FLUSH ONETIME PRN 01/17/20 20:52 CORONAVIRUS COVID-19 YASH [MOLEC] Stat 01/17/20 20:54 UA W/MICROSCOPIC [URIN] Stat Sodium Chloride 0.9% [Normal Saline] 1,000 ml IV ONETIME - Assessment/Plan Last 24 Hours: My Active Orders 01/17/20 18:45 Sodium Chloride 0.9% [Normal Saline] 1,000 ml IV ASDIRECTED 01/17/20 19:53 Sodium Chloride 0.9% [Saline Flush] 10 ml FLUSH ONETIME PRN 01/17/20 20:52 CORONAVIRUS COVID-19 YASH [MOLEC] Stat 01/17/20 20:54 UA W/MICROSCOPIC [URIN] Stat Sodium Chloride 0.9% [Normal Saline] 1,000 ml IV ONETIME
--- NOTE | 2020-01-17 20:39 | CT ---
Addendum: Voice recognition error is identified within the findings with the word appendix being seen which is incorrect and should be replaced by the word pancreas. This sentence should read as follows: Inflammatory change is noted around the pancreas with mild low density being seen within portions of the pancreatic head presumably due to edema. Findings are highly suspicious for recurrent pancreatitis. --- Addendum1 above dictated on [01/18/2020 09:44] by [Salvador Rolon Hilton J.] --- --- Addendum1 above signed on [01/18/2020 09:45] by [Salvador Rolon Hilton J.] --- --- Original report below dictated on [01/17/2020 20:37] by [Salvador Rolon Hilton J.] --- --- Original report below signed on [01/17/2020 20:37] by [Salvador Rolon Hilton J.] --- CT abdomen and pelvis Technique: Multiple axial sections were obtained from above the dome of the diaphragm inferiorly through the pubic symphysis. Intravenous contrast was utilized. Oral contrast also given. Delayed images were obtained through the pelvis. Reconstructed coronal and sagittal images were obtained. Comparison: Prior CT abdomen and pelvis study of 10/15/18. Findings: Inflammatory change is noted around the appendix with mild low density being seen within portions of the pancreatic head presumably due to edema. Findings are highly suspicious for recurrent pancreatitis. Visualized lung bases showed nothing acute. Liver contains no focal abnormality. Adrenal glands show no nodule. Spleen appears within normal limits. Soft tissue nodule medial to the spleen which is felt compatible with accessory splenic tissue. Kidneys show symmetric contrast enhancement without hydronephrosis or mass. Gallbladder contains no calcified gallstones. Aorta shows no aneurysm. No retroperitoneal adenopathy or mesenteric abnormalities are seen. Increased stool within the right colon and cecum are noted. Appendix not visualized with certainty. No pelvic mass or adenopathy is seen. Diverticuli are seen within the sigmoid colon. Delayed images shows contrast excretion from both kidneys into the ureters which showed no obstruction. Contrast is noted within the bladder. Bone window settings were reviewed. Scattered degenerative change is noted within the spine. No acute osseous finding is appreciated. Impression: 1. Findings which I feel are compatible with recurrent pancreatitis. 2. Increased stool within the cecum and right colon. 3. No other acute finding is appreciated on CT study of the abdomen and pelvis. Diagnostic code #3 This report was dictated in MDT --- Addendum1 signed ---
[2020-01-17] MEDS ORDERED: Sodium Chloride 0.9% 1,000 ML IV ONE (20:54)
[2020-01-17] MEDS ORDERED: Ondansetron 4 MG/2 ML SDV ONE (22:35)
[2020-01-17] MEDS ORDERED: Promethazine 12.5 MG in Sodium Chloride 0.9% 50 ML IV PRN (22:35)
--- NOTE | 2020-01-17 23:03 | PCM.HP.2 ---
H&P History of Present Illness - General Date of Service: 01/17/20 Admit Problem/Dx: Admission Diagnosis/Problem Admission Diagnosis/Problem Pancreatitis - History of Present Illness Initial Comments - Free Text/Narative: 64-year-old female with history of rheumatoid arthritis presents to the emergency department with epigastric and right upper quadrant pain. Patient states that she has had 3 or 4 bouts of pancreatitis in her life, most recently 2 months ago, but she was not seen for it. Patient was admitted here in 2018 with pancreatitis. Patient states that over the last few days she has had some increasing loose stools, nausea, and abdominal pain. She complains of feeling bloated and abdominal pressure. Patient has vomited since arriving in the emergency department. She denies any alcohol use over the last month. She does have her gallbladder. No history of diabetes. She is currently taking methotrexate and Plaquenil for her rheumatoid arthritis. She had an injection of her right knee of steroids 2 weeks ago. She denies any hematochezia, melena, hematemesis, or coffee-ground emesis. Abdomen Pain Score (Numeric/FACES): 8 - Related Data Allergies/Adverse Reactions: Allergies Allergy/AdvReac Type Severity Reaction Status Date / Time latex Allergy Hives Verified 01/17/20 22:19 nabumetone Allergy Hives Verified 01/17/20 22:19 Ahtfwze-Zbg-Ram Reductase Allergy Lethargy Verified 01/17/20 22:19 Inhibitor Home Medications: Home Meds Citalopram Hydrobromide [Celexa] 20 mg PO DAILY 08/12/17 [History] Fish Oil/[place]-3 Fatty Acids [Fish Oil 1,000 MG] 1 tab PO DAILY 08/12/17 [History] Levothyroxine Sodium 88 mcg PO DAILY 08/12/17 [History] Multivitamin [Multivitamins] 1 tab PO DAILY 08/12/17 [History] Gabapentin [Neurontin] 600 mg PO BEDTIME 10/15/18 [History] Glucosam/Chondr/Collagn/Hyalur [Glucosamine & Chondroitin Cap] 1 cap PO DAILY 10/15/18 [History] Hydroxychloroquine Sulfate [Plaquenil] 200 mg PO DAILY 10/15/18 [History] Ibuprofen [Ibu-200] 400 mg PO DAILY PRN 10/15/18 [History] Alendronate Sodium [Fosamax] 70 mg PO WEEKLY 01/17/20 [History] Cyclobenzaprine [Flexeril] 5 mg PO TID PRN 01/17/20 [History] Diclofenac Sodium [Voltaren 1% Gel] 1 - 2 gm TOP QID PRN 01/17/20 [History] Folic Acid 1 mg PO DAILY 01/17/20 [History] Methotrexate 8 tab PO WEEKLY 01/17/20 [History] .Nf 2 tab PO DAILY 01/18/20 [History] Acetaminophen [Tylenol] 650 mg PO DAILY 01/18/20 [History] Calcium Carbonate [Calcium] 1,000 mg PO DAILY 01/18/20 [History] Magnesium 400 mg PO DAILY 01/18/20 [History] Past Medical History HEENT History: Reports: Impaired Vision Cardiovascular History: Reports: High Cholesterol Respiratory History: Reports: Other (See Below) Other Respiratory History: allergies Gastrointestinal History: Reports: Pancreatitis Genitourinary History: Reports: None [employer] History: Reports: Musculoskeletal History: Reports: Arthritis, Neck Pain, Chronic, RA Other Musculoskeletal History: in December had high rheumnatoid factor and is to see doctor in May, 2918 Psychiatric History: Reports: Anxiety Endocrine/Metabolic History: Reports: Hypothyroidism Dermatologic History: Reports: Eczema - Infectious Disease History Infectious Disease History: Reports: Chicken Pox, Measles, Mumps - Past Surgical History HEENT Surgical History: Reports: Cataract Surgery GI Surgical History: Reports: Appendectomy Female Surgical History: Reports: Hysterectomy, Tubal Ligation Social & Family History - Family History Family Medical History: Noncontributory - Tobacco Use Smoking Status *Q: Never Smoker Second Hand Smoke Exposure: No - Caffeine Use Caffeine Use: Reports: Coffee Other Caffeine Use: 3 cups/coffee - Recreational Drug Use Recreational Drug Use: No - Living Situation & Occupation Living situation: Reports: Occupation: Employed H&P Review of Systems - Review of Systems: Review Of Systems: Comprehensive ROS is negative, except as noted in HPI. Exam - Exam Exam: See Below - Vital Signs Vital Signs: Last Vital Signs Temp 98.1 F 01/17/20 18:17 Pulse 80 01/17/20 18:17 Resp 20 01/17/20 18:17 BP 133/58 L 01/17/20 18:17 Pulse Ox 96 01/17/20 18:17 Weight: 85.82 kg - Exam General: Alert, Oriented, Moderate Distress HEENT: Conjunctiva Clear, Mucosa Moist & [place], Normal Nasal Septum Neck: Supple, Trachea Midline, 2 Lungs: Clear to Auscultation, Normal Respiratory Effort Cardiovascular: Regular Rate, Regular Rhythm GI/Abdominal Exam: Soft, No Organomegaly, Distended (Mildly and tympanic), Tender (Diffusely tender worse in the epigastrium), Abnormal Bowel Sounds. No: Normal Bowel Sounds (Decreased), Guarding, Rigid, Rebound Extremities: Normal Inspection, Non-Tender, No Pedal Edema, Normal Capillary Refill Peripheral Pulses: 2+: Posterior Tibial (L), Posterior Tibial (R), Dorsalis Pedis (L), Dorsalis Pedis (R) Skin: Warm, Dry, Intact Neuro Extensive - Mental Status: Alert, Oriented x3, Normal Mood/Affect, Normal Cognition, Memory Intact Neuro Extensive - Motor, Sensory, Reflexes: CN II-XII Intact Psychiatric: Alert, Normal Affect, Normal Mood - Patient Data Lab Results Last 24 hrs: Laboratory Results - last 24 hr 01/17/20 01/17/20 01/17/20 Range/Units 18:35 18:55 18:55 WBC 20.33 H (3.98-10.04) K/mm3 RBC 3.49 L (3.98-5.22) M/mm3 Hgb 11.6 (11.2-15.7) gm/dl Hct 35.4 (34.1-44.9) % MCV 101.4 H D (79.4-94.8) fl MCH 33.2 H (25.6-32.2) pg MCHC 32.8 (32.2-35.5) g/dl RDW Std Deviation 50.6 H (36.4-46.3) fL Plt Count 379 H D (182-369) K/mm3 MPV 8.1 L (9.4-12.3) fl Neutrophils % (Manual) 93 H (40-60) % Band Neutrophils % 2 (0-10) % Lymphocytes % (Manual) 2 L (20-40) % Atypical Lymphs % 0 % Monocytes % (Manual) 2 (2-10) % Eosinophils % (Manual) 0 L (0.7-5.8) % Basophils % (Manual) 1 (0.1-1.2) Toxic Granulation Few Platelet Estimate Adequate Anisocytosis 1+ slight Macrocytosis 1+ slight RBC Morph Comment Not Reportable Sodium 131 L (136-145) mEq/L Potassium 4.0 (3.5-5.1) mEq/L Chloride 96 L (98-107) mEq/L Carbon Dioxide 26 (21-32) mEq/L Anion Gap 13.0 (5-15) BUN 10 (7-18) mg/dL Creatinine 1.0 (0.55-1.02) mg/dL Est Cr Clr Drug Dosing 46.40 mL/min Estimated GFR (MDRD) 56 (>60) mL/min BUN/Creatinine Ratio 10.0 L (14-18) Glucose 94 (80-115) mg/dL Calcium 9.0 (8.5-10.1) mg/dL Total Bilirubin 0.7 (0.2-1.0) mg/dL GGT 9 (5-55) U/L AST 26 (15-37) U/L ALT 26 (14-59) U/L Alkaline Phosphatase 69 (46-116) U/L C-Reactive Protein (<1.0) mg/dL Total Protein 7.8 (6.4-8.2) g/dl Albumin 3.1 L (3.4-5.0) g/dl Globulin 4.7 gm/dL Albumin/Globulin Ratio 0.7 L (1-2) Lipase 1798 H (73-393) U/L Urine Color (Yellow) Urine Appearance (Clear) Urine pH (5.0-8.0) Ur Specific [place] (1.005-1.030) Urine Protein (Negative) Urine Glucose (UA) (Negative) Urine Ketones (Negative) Urine Occult Blood (Negative) Urine Nitrite (Negative) Urine Bilirubin (Negative) Urine Urobilinogen (0.2-1.0) Ur Leukocyte Esterase (Negative) Urine RBC (0-5) /hpf Urine WBC (0-5) /hpf Ur Squamous Epith Cells (0-5) /hpf Urine Bacteria (FEW) /hpf Urine Mucus (FEW) /hpf COVID-19 (YASH) (NEGATIVE) 01/17/20 01/17/20 01/17/20 Range/Units 18:55 21:00 21:00 WBC (3.98-10.04) K/mm3 RBC (3.98-5.22) M/mm3 Hgb (11.2-15.7) gm/dl Hct (34.1-44.9) % MCV (79.4-94.8) fl MCH (25.6-32.2) pg MCHC (32.2-35.5) g/dl RDW Std Deviation (36.4-46.3) fL Plt Count (182-369) K/mm3 MPV (9.4-12.3) fl Neutrophils % (Manual) (40-60) % Band Neutrophils % (0-10) % Lymphocytes % (Manual) (20-40) % Atypical Lymphs % % Monocytes % (Manual) (2-10) % Eosinophils % (Manual) (0.7-5.8) % Basophils % (Manual) (0.1-1.2) Toxic Granulation Platelet Estimate Anisocytosis Macrocytosis RBC Morph Comment Sodium (136-145) mEq/L Potassium (3.5-5.1) mEq/L Chloride (98-107) mEq/L Carbon Dioxide (21-32) mEq/L Anion Gap (5-15) BUN (7-18) mg/dL Creatinine (0.55-1.02) mg/dL Est Cr Clr Drug Dosing mL/min Estimated GFR (MDRD) (>60) mL/min BUN/Creatinine Ratio (14-18) Glucose (80-115) mg/dL Calcium (8.5-10.1) mg/dL Total Bilirubin (0.2-1.0) mg/dL GGT (5-55) U/L AST (15-37) U/L ALT (14-59) U/L Alkaline Phosphatase (46-116) U/L C-Reactive Protein 16.2 H* (<1.0) mg/dL Total Protein (6.4-8.2) g/dl Albumin (3.4-5.0) g/dl Globulin gm/dL Albumin/Globulin Ratio (1-2) Lipase (73-393) U/L Urine Color Yellow (Yellow) Urine Appearance Clear (Clear) Urine pH 6.5 (5.0-8.0) Ur Specific [place] 1.020 (1.005-1.030) Urine Protein 1+ H (Negative) Urine Glucose (UA) Negative (Negative) Urine Ketones Trace H (Negative) Urine Occult Blood 1+ H (Negative) Urine Nitrite Negative (Negative) Urine Bilirubin Negative (Negative) Urine Urobilinogen 0.2 (0.2-1.0) Ur Leukocyte Esterase 1+ H (Negative) Urine RBC 5-10 H (0-5) /hpf Urine WBC 5-10 H (0-5) /hpf Ur Squamous Epith Cells 0-5 (0-5) /hpf Urine Bacteria Few (FEW) /hpf Urine Mucus Not seen (FEW) /hpf COVID-19 (YASH) Negative (NEGATIVE) Result Diagrams: 01/17/20 18:55 01/17/20 18:55 Imaging Impressions Last 24 hrs: CT abdomen pelvis: 1. Findings which are felt compatible with recurrent pancreatitis. 2. Increased stool within the cecum and right colon. 3. No other acute findings is appreciated on CT study of the abdomen and pelvis. Sepsis Event Note - Evaluation Sepsis Screening Result: No Definite Risk - Focused Exam Vital Signs: Vital Signs Temp Pulse Resp BP Pulse Ox 01/17/20 18:17 98.1 F 80 20 133/58 L 96 Date Exam was Performed: 01/18/20 Time Exam was Performed: 00:35 Problem List Initiated/Reviewed/Updated: Yes Orders Last 24hrs: Active Orders 24 hr Category Date Time Status Admission Status [Patient Status] [ADT] Routine ADT 01/17/20 20:59 Active Oxygen Therapy [RC] PRN Care 01/17/20 22:33 Active Up With Assistance [RC] ASDIRECTED Care 01/17/20 22:33 Active VTE/DVT Education [RC] PER UNIT ROUTINE Care 01/17/20 22:33 Active Vital Signs [RC] Q4H Care 01/17/20 22:36 Active Nothing per Oral Now Diet [DIET] Diet 01/17/20 Dinner Active Abdomen Comp [US] Routine Exams 01/18/20 08:00 Ordered CBC WITH AUTO DIFF [HEME] AM Lab 01/18/20 05:11 Ordered COMPREHENSIVE METABOLIC PN,CMP [CHEM] AM Lab 01/18/20 05:11 Ordered MAGNESIUM [CHEM] AM Lab 01/18/20 05:11 Ordered PHOSPHORUS [CHEM] AM Lab 01/18/20 05:11 Ordered TRIGLYCERIDES [CHEM] Routine Lab 01/17/20 23:03 Ordered Enoxaparin [Lovenox] Med 01/18/20 09:00 Active 40 mg SUBCUT DAILY HYDROmorphone [Dilaudid] Med 01/17/20 22:35 Active 1 mg IVPUSH Q2H PRN Ondansetron [Zofran] Med 01/17/20 22:35 Active 4 mg IV Q4H PRN Pantoprazole [ProTONIX IV] Med 01/18/20 09:00 Active 40 mg IV Q12HR Promethazine [Phenergan] 12.5 mg Med 01/17/20 22:35 Active Sodium Chloride 0.9% [Normal Saline] 50 ml IV Q6H Sodium Chloride 0.9% [Normal Saline] 1,000 ml Med 01/17/20 18:45 Active IV ASDIRECTED Sodium Chloride 0.9% [Normal Saline] 1,000 ml Med 01/17/20 22:45 Active IV ASDIRECTED Sodium Chloride 0.9% [Saline Flush] Med 01/17/20 19:53 Active 10 ml FLUSH ONETIME PRN Resuscitation Status Routine Resus Stat 01/17/20 22:33 Ordered Medication Orders Enoxaparin Sodium (Lovenox) 40 mg SUBCUT DAILY [facility] Hydromorphone HCl (Dilaudid) 1 mg IVPUSH Q2H PRN PRN Reason: Pain (severe 7-10) Sodium Chloride (Normal Saline) 1,000 mls @ 999 mls/hr IV ASDIRECTED [facility] Last Admin: 01/17/20 18:54 Dose: 999 mls/hr Documented by: WALESKA Sodium Chloride (Normal Saline) 1,000 mls @ 200 mls/hr IV ASDIRECTED [facility] Promethazine HCl 12.5 mg/ (Sodium Chloride) 50.5 mls @ 100 mls/hr IV Q6H PRN PRN Reason: Nausea/Vomiting Ondansetron HCl (Zofran) 4 mg IV Q4H PRN PRN Reason: Nausea/Vomiting Pantoprazole Sodium (Protonix Iv) 40 mg IV Q12HR [place] Sodium Chloride (Saline Flush) 10 ml FLUSH ONETIME PRN PRN Reason: Keep Vein Open Last Admin: 01/17/20 20:17 Dose: 10 ml Documented by: RICHARD Assessment/Plan Comment:: Assessment * 54-year-old female with recurrent pancreatitis * Patient with exquisite pain, nausea, vomiting * CT exam consistent with recurrent pancreatitis * Lipase 1798, WBC 20.33, estimated GFR 56 with a creatinine of 1.0, albumin 3.1, C-reactive protein 16.2 * Given 1 L IV fluid bolus in ER * Hyponatremia * Sodium 131 * Rheumatoid arthritis * Currently on methotrexate and Plaquenil. * Right knee injection with steroids 2 weeks ago Chronic: Hyperlipidemia, anxiety, hypothyroidism, Plan * Admit to medical floor * N.p.o. except meds * IV hydration with normal saline at 200 mL/h. * Check CBC, CMP, magnesium, phosphorus in the morning * Dilaudid for pain. * Hold methotrexate and Plaquenil. * Abdominal ultrasound in the morning * VTE prophylaxis with Lovenox * CODE STATUS full code * Anticipated length of stay 3 to 4 days. - Mortality Measure Prognosis:: Good
[2020-01-18] MEDS: Sodium Chloride 0.9% 1,000 ML IV SCH ×5 (00:08→23:50)
[2020-01-18] MEDS: HYDROmorphone 0.5 MG/0.5 ML Syringe IVPUSH PRN ×3 (00:19→05:58)
[2020-01-18] MEDS: Ondansetron 4 MG/2 ML SDV IV PRN ×3 (05:40→19:50)
[2020-01-18] MEDS: Levothyroxine 88 MCG Tab PO SCH (05:58)
[2020-01-18] MEDS: Pantoprazole 40 MG Vial IV SCH ×2 (09:38→21:59)
[2020-01-18] MEDS: Folic Acid 1 MG Tab PO SCH (09:42)
[2020-01-18] MEDS: Citalopram 20 MG Tab PO SCH (09:42)
[2020-01-18] MEDS: Enoxaparin 40 MG/0.4 ML Syringe SUBCUT SCH (09:42)
[2020-01-18] MEDS ORDERED: Phosphorus #1 250 MG Tab PO ONE (10:27)
[2020-01-18] MEDS: Meperidine 50 MG/ML Vial IV PRN (10:43)
--- NOTE | 2020-01-18 10:55 | US ---
Abdominal ultrasound: Multiple real-time images were obtained of the abdomen. Comparison: Prior CT abdomen and pelvis exam of 01/17/20. Findings: Liver shows no focal parenchymal abnormality. Pancreas is poorly seen due to bowel gas. Gallbladder contains no shadowing gallstones. No gallbladder wall thickening or biliary duct dilatation is seen. Right kidney shows no hydronephrosis or mass and has a length of 10.3 cm. Left kidney is not optimally seen. Left kidney has a length of 9.4 cm. Spleen size is normal. Aorta shows no aneurysm. Inferior vena cava is patent. Main portal vein shows normal hepatopedal flow. Impression: 1. Pancreas not well seen due to bowel gas. 2. Poorly seen left kidney. 3. No additional abnormality is appreciated on abdominal ultrasound exam. Diagnostic code #2 This report was dictated in MDT
[2020-01-18] MEDS ORDERED: Piperacillin/Tazobactam 4.5 GM in Sodium Chloride 0.9% 100 ML IV ONE ×2 (11:00→13:00)
--- NOTE | 2020-01-18 12:30 | PCM.PN ---
- General Info Date of Service: 01/18/20 - Review of Systems Systems Review Comment:: The patient was seen and examined by me. In bed at time of exam. In moderate distress due to pain. Still reporting nausea, pain, with scale of 8. Has not had a Bowel movement. Denies chest pain or palpitations. Reports passing flatus. No other acute complains reported by nursing staff or the patient. - Patient Data Vitals - Most Recent: Last Vital Signs Temp 99.0 F 01/18/20 11:22 Pulse 73 01/18/20 11:22 Resp 20 01/18/20 11:22 BP 117/92 H 01/18/20 11:22 Pulse Ox 94 L 01/18/20 11:22 Weight - Most Recent: 189 lb - Exam General: Alert, Oriented, Moderate Distress (due to pain) HEENT: Pupils Equal, Pupils Reactive, EOMI, Mucous Membr. Moist/[place] Neck: Supple Lungs: Clear to Auscultation, Normal Respiratory Effort Cardiovascular: Regular Rate, Regular Rhythm GI/Abdominal Exam: Tender (in RUQ), Other (Hypoactive Bowel sounds) (Female) Exam: Deferred Back Exam: Normal Inspection, Full Range of Motion Extremities: Normal Inspection, Normal Range of Motion, No Pedal Edema Skin: Warm, Dry, Intact Neurological: No New Focal Deficit Psy/Mental Status: Alert, Normal Affect, Normal Mood Sepsis Event Note - Evaluation Sepsis Screening Result: No Definite Risk - Focused Exam Vital Signs: Vital Signs Temp Pulse Resp BP Pulse Ox 01/18/20 11:22 99.0 F 73 20 117/92 H 94 L 01/18/20 08:01 99.7 F 88 20 109/59 L 95 01/18/20 04:21 98.4 F 87 18 112/52 L 92 L Date Exam was Performed: 01/18/20 Time Exam was Performed: 12:23 - Problem List & Annotations (1) Electrolyte imbalance SNOMED Code(s): 907150752 Code(s): E87.8 - OTH DISORDERS OF ELECTROLYTE AND FLUID BALANCE, NEC Status: Acute Current Visit: Yes (2) Pancreatitis SNOMED Code(s): 20735523 Code(s): K85.90 - ACUTE PANCREATITIS WITHOUT NECROSIS OR INFECTION, UNSP Status: Acute Current Visit: Yes Qualifiers: Chronicity: acute Pancreatitis type: other Acute pancreatitis complication: unspecified Qualified Code(s): K85.80 - Other acute pancreatitis without necrosis or infection (3) Abdominal pain SNOMED Code(s): 08466368 Code(s): R10.9 - UNSPECIFIED ABDOMINAL PAIN Status: Acute Priority: High Current Visit: No Qualifiers: Abdominal location: upper abdomen, unspecified Qualified Code(s): R10.10 - Upper abdominal pain, unspecified (4) Eczema SNOMED Code(s): 44371660 Code(s): L30.9 - DERMATITIS, UNSPECIFIED Status: Chronic Priority: Low Current Visit: No Qualifiers: Eczema type: unspecified Qualified Code(s): L30.9 - Dermatitis, unspecified (5) HLD (hyperlipidemia) SNOMED Code(s): 11497912 Code(s): E78.5 - HYPERLIPIDEMIA, UNSPECIFIED Status: Chronic Priority: Low Current Visit: No Qualifiers: Hyperlipidemia type: unspecified Qualified Code(s): E78.5 - Hyperlipidemia, unspecified (6) Hypothyroidism SNOMED Code(s): 28211840 Code(s): E03.9 - HYPOTHYROIDISM, UNSPECIFIED Status: Chronic Priority: Low Current Visit: No Qualifiers: Hypothyroidism type: unspecified Qualified Code(s): E03.9 - Hypothyroidism, unspecified (7) Pancarditis SNOMED Code(s): 72881841 Code(s): I51.89 - OTHER ILL-DEFINED HEART DISEASES Status: Acute Current Visit: Yes - Problem List Review Problem List Initiated/Reviewed/Updated: No - Assessment Assessment:: (1) Electrolyte imbalance magnesium and phosphorous low, will replace. (2) Pancreatitis SNOMED Code(s): 31960827 still reports pain, had fever over night, WBC remain elevated,lipase trending down. Will add Zosyn. (3) Abdominal pain SNOMED Code(s): 38974923 Due to pancreatitis, will stop Dilaudid, start the patient Demerol and Toradol PRN.. (4) HLD (hyperlipidemia) SNOMED Code(s): 96291933 Will continue home dose of Synthroid. . (6) Hypothyroidism SNOMED Code(s): 96849393 will continue home dose of Synthroid. - Plan Plan:: Assessment * Electrolyte imbalance. * Abdominal pain * Pancreatis * Hyponatremia ( resolved) * Sodium 136 * Rheumatoid arthritis * Currently on methotrexate and Plaquenil. * Right knee injection with steroids 2 weeks ago Chronic: Hyperlipidemia, anxiety, hypothyroidism, Plan * Patient will remain on the floor. * Continue N.p.o. except meds * IV hydration with normal saline at 150 mL/h. * Check CBC, CMP, magnesium, phosphorus in the morning * change pain medications to Demerol and Toradol * Hold methotrexate and Plaquenil. plan to repeat CT tomorrow if no significant improvement. Prophylaxis: DVT: Continue Lovenox. GI: Continue PPI Nausea: Zofran and [place] PRN Code status: Full code. Disposition: Patient will remain in house with plan to discharge back home when stable. Prognosis: stable.
[2020-01-18] MEDS ORDERED: Bisacodyl 10 MG Supp RECTAL ONE (18:05)
[2020-01-18] MEDS: Piperacillin/Tazobactam 4.5 GM in Sodium Chloride 0.9% 100 ML IV SCH (20:02)
[2020-01-18] MEDS: Gabapentin 600 MG Tab PO SCH (21:59)
[2020-01-19] MEDS: Meperidine 50 MG/ML Vial IV PRN ×3 (05:20→21:12)
[2020-01-19] MEDS: Ondansetron 4 MG/2 ML SDV IV PRN ×3 (05:26→13:41)
[2020-01-19] MEDS: Levothyroxine 88 MCG Tab PO SCH (05:30)
[2020-01-19] MEDS: Piperacillin/Tazobactam 4.5 GM in Sodium Chloride 0.9% 100 ML IV SCH ×3 (05:33→21:01)
[2020-01-19] MEDS: Sodium Chloride 0.9% 1,000 ML IV SCH (06:58)
[2020-01-19] MEDS: Citalopram 20 MG Tab PO SCH (09:15)
[2020-01-19] MEDS: Folic Acid 1 MG Tab PO SCH (09:15)
[2020-01-19] MEDS: Enoxaparin 40 MG/0.4 ML Syringe SUBCUT SCH (09:15)
[2020-01-19] MEDS: Pantoprazole 40 MG Vial IV SCH ×2 (09:16→20:56)
[2020-01-19] MEDS ORDERED: Furosemide 20 MG/2 ML VIAL IVPUSH ONE ×2 (10:38→22:57)
[2020-01-19] MEDS ORDERED: Dextrose 5%-0.9% NaCl 1,000 ML IV SCH (10:45)
--- NOTE | 2020-01-19 11:18 | PCM.PN ---
- General Info Date of Service: 01/19/20 - Review of Systems Systems Review Comment:: Patient reports pain and nausea has improved today compared to yesterday. Reports feeling bloated, but passing some flatus. states she is able to try clear clear liquids. No other complaints reported. - Patient Data Vitals - Most Recent: Last Vital Signs Temp 98.2 F 01/19/20 03:50 Pulse 74 01/19/20 03:50 Resp 16 01/19/20 03:50 BP 112/46 L 01/19/20 03:50 Pulse Ox 97 01/19/20 03:50 Weight - Most Recent: 194 lb 4.8 oz I&O - Last 24 Hours: Intake & Output 01/18/20 01/19/20 01/19/20 22:59 06:59 14:59 Intake Total 2180 2020 Output Total 800 700 Balance 1380 1320 - Exam General: Alert, Oriented HEENT: Pupils Equal, Pupils Reactive, EOMI, Mucous Membr. Moist/[place] Neck: Supple Lungs: Clear to Auscultation, Normal Respiratory Effort Cardiovascular: Regular Rate, Regular Rhythm GI/Abdominal Exam: Distended (mild), Tender (in epigastric), Abnormal Bowel Sounds (hypoactive), Other Back Exam: Normal Inspection, Full Range of Motion Extremities: Normal Inspection, Pedal Edema (2+) Skin: Warm, Dry, Intact Neurological: No New Focal Deficit Psy/Mental Status: Alert, Normal Affect, Normal Mood Sepsis Event Note - Evaluation Sepsis Screening Result: Sepsis Risk - Focused Exam Vital Signs: Vital Signs Temp Pulse Resp BP Pulse Ox 01/19/20 03:50 98.2 F 74 16 112/46 L 97 01/18/20 23:48 98.4 F 75 24 H 117/46 L 95 Date Exam was Performed: 01/24/20 Time Exam was Performed: 15:42 - Problem List & Annotations (1) Electrolyte imbalance SNOMED Code(s): 123828518 Code(s): E87.8 - OTH DISORDERS OF ELECTROLYTE AND FLUID BALANCE, NEC Status: Acute (2) Pancreatitis SNOMED Code(s): 02695366 Code(s): K85.90 - ACUTE PANCREATITIS WITHOUT NECROSIS OR INFECTION, UNSP Status: Acute Qualifiers: Chronicity: acute Pancreatitis type: other Acute pancreatitis complication: unspecified Qualified Code(s): K85.80 - Other acute pancreatitis without necrosis or infection (3) Abdominal pain SNOMED Code(s): 14700681 Code(s): R10.9 - UNSPECIFIED ABDOMINAL PAIN Status: Acute Priority: High Qualifiers: Abdominal location: epigastric Qualified Code(s): R10.13 - Epigastric pain (4) Eczema SNOMED Code(s): 94696885 Code(s): L30.9 - DERMATITIS, UNSPECIFIED Status: Chronic Priority: Low Qualifiers: Eczema type: unspecified Qualified Code(s): L30.9 - Dermatitis, unspecified (5) HLD (hyperlipidemia) SNOMED Code(s): 46455509 Code(s): E78.5 - HYPERLIPIDEMIA, UNSPECIFIED Status: Chronic Priority: Low Qualifiers: Hyperlipidemia type: unspecified Qualified Code(s): E78.5 - Hyperlipidemia, unspecified (6) Hypothyroidism SNOMED Code(s): 07839702 Code(s): E03.9 - HYPOTHYROIDISM, UNSPECIFIED Status: Chronic Priority: Low Qualifiers: Hypothyroidism type: unspecified Qualified Code(s): E03.9 - Hypothyroidism, unspecified (7) Pancarditis SNOMED Code(s): 95695105 Code(s): I51.89 - OTHER ILL-DEFINED HEART DISEASES Status: Acute (8) Hypophosphatemia SNOMED Code(s): 1104865 Code(s): E83.39 - OTHER DISORDERS OF PHOSPHORUS METABOLISM Status: Acute (9) Hypoalbuminemia SNOMED Code(s): 736048712 Code(s): E88.09 - OTH DISORDERS OF PLASMA-PROTEIN METABOLISM, NEC Status: Acute (10) Constipation SNOMED Code(s): 32809289 Code(s): K59.00 - CONSTIPATION, UNSPECIFIED Status: Acute - Problem List Review Problem List Initiated/Reviewed/Updated: Yes - Assessment Assessment:: 01/19/2020 Vital signs - BP 112/46 - Tmax 98.2 - HR 74 - SatO2 > 90% on RA Lab results - WBC 25.92 from 28.14 - HH 9.5/30.0 - Plt 291 - Lipase dwon to 385 from 1375 yesterday - albumin 2.4 - phosphorous 1.8 The patient appears distended/constipated. Noted with upper and lower extremity swelling. Still has pain in epigastric region But lipase trending down. WBC trending down. On day 2 of zosyn. - Plan Plan:: Acute pancreatitis: Keep on clears. Continue IV fluids but decrease rate. Continue Zofran for nausea, pain/fever continue Tylenol and meperidine Constipation/ileus: Will request KUB to eval obstruction/degree of constipation Patient will be given soap suds enema. Encourage ambulation. Hypophosphatemia Will replace phosphorous. Fluid over load: Lasix 20 IV push x 1 dose. Decrease IV fluids from 150-125ml/hr. Hypoalbiminia: will check prealbumin continue to monitor and replace if needed. Hypothyroidism: Continue levothyroxine. Neuropathy: Will continue Neurontin. Depression: will continue home citalopram Hypomagnesemia, resolved PROPHYLAXIS DVT- Lovenox GI- Protonix IV CODE STATUS: full code DISPOSITION: Patient will remain in house, for IV hydration pain management and antibiotics..
--- NOTE | 2020-01-19 11:51 | CR ---
Abdomen: Supine view of the abdomen was obtained. Comparison: No prior abdominal x-ray. Contrast noted within the colon from prior CT study of 01/17/20. Gas is also noted within the colon. This does not appear to be obstructive. No soft tissue abnormality is seen. Bony structures are within normal limits for the patient's age. Impression: 1. Gas and contrast within the colon. Contrast from prior CT study of 01/17/20. 2. Nothing acute is seen. Diagnostic code #2 This report was dictated in MDT
[2020-01-19] MEDS ORDERED: Potassium Phosphates 30 MMOLE in Sodium Chloride 0.9% 500 ML IV ONE (12:00)
[2020-01-19] MEDS: Gabapentin 600 MG Tab PO SCH (20:58)
[2020-01-20] MEDS: Piperacillin/Tazobactam 4.5 GM in Sodium Chloride 0.9% 100 ML IV SCH (05:30)
[2020-01-20] MEDS: Levothyroxine 88 MCG Tab PO SCH (05:38)
[2020-01-20] MEDS: Enoxaparin 40 MG/0.4 ML Syringe SUBCUT SCH (09:10)
[2020-01-20] MEDS: Folic Acid 1 MG Tab PO SCH (09:11)
[2020-01-20] MEDS: Pantoprazole 40 MG Vial IV SCH (09:12)
[2020-01-20] MEDS: Citalopram 20 MG Tab PO SCH (09:12)
[2020-01-20] MEDS ORDERED: Potassium Chloride 20 MEQ Tab.ER PO ONE (09:35)
[2020-01-20] MEDS ORDERED: Phosphorus #1 250 MG Tab PO ONE (09:37)
--- NOTE | 2020-01-20 10:18 | PCM.PN ---
- General Info Date of Service: 01/20/20 - Review of Systems Systems Review Comment:: Patient resting in bed. No complains this morning. Reported she could not really tolerate clear liquids, due to fear of nausea not pain. Reported enema helped with constipation, states lower extremity swelling has improved. - Patient Data Vitals - Most Recent: Last Vital Signs Temp 98.4 F 01/20/20 07:51 Pulse 58 L 01/20/20 07:51 Resp 20 01/20/20 07:51 BP 133/60 01/20/20 07:51 Pulse Ox 97 01/20/20 07:51 Weight - Most Recent: 192 lb 6.4 oz I&O - Last 24 Hours: Intake & Output 01/19/20 01/20/20 01/20/20 22:59 06:59 14:59 Intake Total 2220 1931 Output Total 2280 2700 Balance -60 -459 - Exam General: Alert, Oriented HEENT: Pupils Equal, Pupils Reactive, EOMI, Mucous Membr. Moist/[place] Neck: Supple Lungs: Clear to Auscultation, Normal Respiratory Effort Cardiovascular: Regular Rate, Regular Rhythm GI/Abdominal Exam: Normal Bowel Sounds, Soft, Non-Tender, No Organomegaly (Female) Exam: Normal External Exam, Normal Speculum Exam, Normal Bimanual Exam Back Exam: Normal Inspection, Full Range of Motion Extremities: Normal Inspection, Normal Range of Motion, Pedal Edema (trace lower extremity, improved today compared to yesterday.) Skin: Warm, Dry, Intact Wound/Incisions: Healing Well Psy/Mental Status: Alert, Normal Affect, Normal Mood Sepsis Event Note - Evaluation Sepsis Screening Result: No Definite Risk - Focused Exam Vital Signs: Vital Signs Temp Pulse Resp BP Pulse Ox 01/20/20 07:51 98.4 F 58 L 20 133/60 97 01/19/20 23:27 98.2 F 67 20 124/98 H 94 L Date Exam was Performed: 01/24/20 Time Exam was Performed: 15:39 - Problem List & Annotations (1) Electrolyte imbalance SNOMED Code(s): 097325508 Code(s): E87.8 - OTH DISORDERS OF ELECTROLYTE AND FLUID BALANCE, NEC Status: Acute (2) Pancreatitis SNOMED Code(s): 22265022 Code(s): K85.90 - ACUTE PANCREATITIS WITHOUT NECROSIS OR INFECTION, UNSP Status: Acute Qualifiers: Chronicity: acute Pancreatitis type: other Acute pancreatitis complication: unspecified Qualified Code(s): K85.80 - Other acute pancreatitis without necrosis or infection (3) Abdominal pain SNOMED Code(s): 64228554 Code(s): R10.9 - UNSPECIFIED ABDOMINAL PAIN Status: Acute Priority: High Qualifiers: Abdominal location: epigastric Qualified Code(s): R10.13 - Epigastric pain (4) Eczema SNOMED Code(s): 33898597 Code(s): L30.9 - DERMATITIS, UNSPECIFIED Status: Chronic Priority: Low Qualifiers: Eczema type: unspecified Qualified Code(s): L30.9 - Dermatitis, unspecified (5) HLD (hyperlipidemia) SNOMED Code(s): 83427593 Code(s): E78.5 - HYPERLIPIDEMIA, UNSPECIFIED Status: Chronic Priority: Low Qualifiers: Hyperlipidemia type: unspecified Qualified Code(s): E78.5 - Hyperlipidemia, unspecified (6) Hypothyroidism SNOMED Code(s): 31083922 Code(s): E03.9 - HYPOTHYROIDISM, UNSPECIFIED Status: Chronic Priority: Low Qualifiers: Hypothyroidism type: unspecified Qualified Code(s): E03.9 - Hypothyroidism, unspecified (7) Pancarditis SNOMED Code(s): 85032772 Code(s): I51.89 - OTHER ILL-DEFINED HEART DISEASES Status: Acute (8) Hypophosphatemia SNOMED Code(s): 7644082 Code(s): E83.39 - OTHER DISORDERS OF PHOSPHORUS METABOLISM Status: Acute (9) Hypoalbuminemia SNOMED Code(s): 143184826 Code(s): E88.09 - OTH DISORDERS OF PLASMA-PROTEIN METABOLISM, NEC Status: Acute (10) Constipation SNOMED Code(s): 19353132 Code(s): K59.00 - CONSTIPATION, UNSPECIFIED Status: Acute - Problem List Review Problem List Initiated/Reviewed/Updated: Yes - Assessment Assessment:: 01/19/2020 Vital signs - BP 112/46 - Tmax 98.2 - HR 74 - SatO2 > 90% on RA Lab results - WBC 25.92 from 28.14 - HH 9.5/30.0 - Plt 291 - Lipase dwon to 385 from 1375 yesterday - albumin 2.4 - phosphorous 1.8 The patient appears distended/constipated. Noted with upper and lower extremity swelling. Still has pain in epigastric region But lipase trending down. WBC trending down. On day 2 of zosyn. 01/20/2020 Vital signs - BP 133/60 - Tmax 98.4 - HR 58-67 - SatO2 > 95% on RA Lab results - WBC 18.75 from 25.92 - HH 8.8/27.6 compared to 9.5/30.0 yesterday - Plt 305 - phosphorous 1.8 -Mag 1.9 No fevers and WBC keeps trending down. Abdomen today soft after multiple BMs Patient has -1L of fluid balance after Lasix with improvement of U/LLE swelling. Complains of bloating, KUB - for any acute findings. - Plan Plan:: Acute pancreatitis: Advance diet to full liquids. start simethicone for bloating. Stop Zosyn and start Augmentin. continue Zofran for nausea. Tylenol and meperidine for pain/fever check fecal elastase to consider pancrelipase due chronic pancreatitis on DC. Hypophosphatemia will replace with K-phose. Hypoalbiminia: Remains low but most likely due to fluids/ poor intake. Will continue to monitor and nutrition counseling. Hypothyroidism: Continue levothyroxine. Neuropathy: Will continue Neurontin. Depression: will continue home citalopram Constipation/ileus: s/p resolved continue to monitor Fluid over load: s/p improved IV fluids DCed Hypomagnesemia, resolved PROPHYLAXIS DVT- Lovenox GI- Protonix change IV to P.O CODE STATUS: full code DISPOSITION: Patient will remain in the hospital, advance diet ,control pain. she will stay in the hospital longer than 96 hrs because she is still on liquids and still needs to be closely monitored.
[2020-01-20] MEDS: Simethicone 80 MG Tab.Chew PO PRN ×2 (14:29→21:06)
[2020-01-20] MEDS: Pantoprazole 40 MG Tab.CR PO SCH (16:29)
[2020-01-20] MEDS: Meperidine 50 MG/ML Vial IV PRN ×2 (17:13→21:12)
[2020-01-20] MEDS: Amoxicillin/Clavulanate K 875-125 MG Tab PO SCH (20:32)
[2020-01-20] MEDS: Gabapentin 600 MG Tab PO SCH (20:34)
[2020-01-21] MEDS: Simethicone 80 MG Tab.Chew PO PRN ×2 (05:28→10:50)
[2020-01-21] MEDS: Levothyroxine 88 MCG Tab PO SCH (05:28)
[2020-01-21] MEDS: Pantoprazole 40 MG Tab.CR PO SCH (05:28)
[2020-01-21 07:34] LABS: HEMOGLOBIN A1C 5.4 % (4.50-6.20)
[2020-01-21] MEDS: Citalopram 20 MG Tab PO SCH (09:13)
[2020-01-21] MEDS: Amoxicillin/Clavulanate K 875-125 MG Tab PO SCH (09:13)
[2020-01-21] MEDS: Enoxaparin 40 MG/0.4 ML Syringe SUBCUT SCH (09:15)
[2020-01-21] MEDS ORDERED: Potassium Chloride 20 MEQ Tab.ER PO ONE (09:41)
[2020-01-21] MEDS ORDERED: Phosphorus #1 250 MG Tab PO ONE ×3 (09:42→12:48)
[2020-01-21] MEDS: Folic Acid 1 MG Tab PO SCH (10:50)
[2020-01-21 11:26] VITALS: BP 108/57; PULSE 59
--- NOTE | 2020-01-21 11:46 | PCM.DCSUM1 ---
Discharge Summary - Hospital Course Free Text/Narrative:: Mrs. Nicole is a pleasant 64-year-old female, who was admitted to the hospital with chief complaint of intractable nausea and vomiting with coffee-ground emesis and epigastric pain. Patient at time of admission reported significant history of acute pancreatitis, denies any alcohol abuse/use. Stated she has history of recurrent pancreatitis but over the past year has been having recurrence of pancreatitis. On presentation noted with severe pain 10/10, decreased p.o. intakes with a lipase and leukocytosis, with CT scan of abdomen and pelvis consistent for recurrent pancreatitis and constipation. Given this presentation patient was admitted to the hospital. The patient was started on vigorous IV hydration, kept n.p.o., antibiotics with Zosyn given leukocytosis. Patient had slow trend of improvement given obstipation which patient had. But after lipase started improving, pain also improved but patient developed recurrence of bloating which slowly improved after patient was given enemas and constipation was relieved. Advance to liquids which patient tolerated to full liquids. Pain, nausea, constipation resolved prior to discharge electrolytes were replaced including potassium, magnesium and phosphorus. Prior to discharge, fecal Estrace was requested, and the patient is scheduled to follow-up with automotive engineer on 12/28/2019. On discharge, patient also recommended for ambulation moderate amount of water daily avoid any alcohol. Continue on low fat/soft diet. Follow- up with primary care provider within 1 week of discharge. Diagnosis: Stroke: No - Discharge Data Discharge Date: 01/21/20 Discharge Disposition: Home, Self-Care 01 Condition: Stable - Referral to Home Health Primary Care Physician: Linda Sanchez MD - Discharge Diagnosis/Problem(s) (1) Electrolyte imbalance SNOMED Code(s): 330589474 ICD Code: E87.8 - OTH DISORDERS OF ELECTROLYTE AND FLUID BALANCE, NEC Status: Acute (2) Pancreatitis SNOMED Code(s): 43868900 ICD Code: K85.90 - ACUTE PANCREATITIS WITHOUT NECROSIS OR INFECTION, UNSP Status: Acute Qualifiers: Chronicity: acute Pancreatitis type: other Acute pancreatitis complication: unspecified Qualified Code(s): K85.80 - Other acute pancreatitis without necrosis or infection (3) Abdominal pain SNOMED Code(s): 56567415 ICD Code: R10.9 - UNSPECIFIED ABDOMINAL PAIN Status: Acute Priority: High Qualifiers: Abdominal location: epigastric Qualified Code(s): R10.13 - Epigastric pain (4) Eczema SNOMED Code(s): 31593180 ICD Code: L30.9 - DERMATITIS, UNSPECIFIED Status: Chronic Priority: Low Qualifiers: Eczema type: unspecified Qualified Code(s): L30.9 - Dermatitis, unspecified (5) HLD (hyperlipidemia) SNOMED Code(s): 69041907 ICD Code: E78.5 - HYPERLIPIDEMIA, UNSPECIFIED Status: Chronic Priority: Low Qualifiers: Hyperlipidemia type: unspecified Qualified Code(s): E78.5 - Hyperlipidemia, unspecified (6) Hypothyroidism SNOMED Code(s): 69760681 ICD Code: E03.9 - HYPOTHYROIDISM, UNSPECIFIED Status: Chronic Priority: Low Qualifiers: Hypothyroidism type: unspecified Qualified Code(s): E03.9 - Hypothyroidism, unspecified (7) Pancarditis SNOMED Code(s): 90972841 ICD Code: I51.89 - OTHER ILL-DEFINED HEART DISEASES Status: Acute (8) Hypophosphatemia SNOMED Code(s): 8425524 ICD Code: E83.39 - OTHER DISORDERS OF PHOSPHORUS METABOLISM Status: Acute (9) Hypoalbuminemia SNOMED Code(s): 607405506 ICD Code: E88.09 - OTH DISORDERS OF PLASMA-PROTEIN METABOLISM, NEC Status: Acute (10) Constipation SNOMED Code(s): 68086996 ICD Code: K59.00 - CONSTIPATION, UNSPECIFIED Status: Acute - Patient Instructions Diet: No Alcoholic Beverages, GI Soft/Low Residue/Low Fiber Fluid Restriction: drink moderate amount of water daily Driving: May Drive Today Showering/Bathing: May Shower Notify Provider of: Nausea and/or Vomiting - Discharge Plan *PRESCRIPTION DRUG MONITORING PROGRAM REVIEWED*: No *COPY OF PRESCRIPTION DRUG MONITORING REPORT IN PATIENT ROSI: No Prescriptions/Med Rec: Omeprazole Magnesium 20 mg PO QPM #30 tablet. Simethicone 80 mg PO Q6H PRN #30 tab.chew PRN Reason: GAS Home Medications: Home Meds Citalopram Hydrobromide [Celexa] 20 mg PO DAILY 08/12/17 [History] Fish Oil/[place]-3 Fatty Acids [Fish Oil 1,000 MG] 1 tab PO DAILY 08/12/17 [History] Levothyroxine Sodium 88 mcg PO DAILY 08/12/17 [History] Multivitamin [Multivitamins] 1 tab PO DAILY 08/12/17 [History] Gabapentin [Neurontin] 600 mg PO BEDTIME 10/15/18 [History] Glucosam/Chondr/Collagn/Hyalur [Glucosamine & Chondroitin Cap] 1 cap PO DAILY 10/15/18 [History] Hydroxychloroquine Sulfate [Plaquenil] 200 mg PO DAILY 10/15/18 [History] Ibuprofen [Ibu-200] 400 mg PO DAILY PRN 10/15/18 [History] Alendronate Sodium [Fosamax] 70 mg PO WEEKLY 01/17/20 [History] Cyclobenzaprine [Flexeril] 5 mg PO TID PRN 01/17/20 [History] Diclofenac Sodium [Voltaren 1% Gel] 1 - 2 gm TOP QID PRN 01/17/20 [History] Folic Acid 1 mg PO DAILY 01/17/20 [History] Methotrexate 8 tab PO WEEKLY 01/17/20 [History] .Nf 2 tab PO DAILY 01/18/20 [History] Acetaminophen [Tylenol] 650 mg PO DAILY 01/18/20 [History] Calcium Carbonate [Calcium] 1,000 mg PO DAILY 01/18/20 [History] Magnesium 400 mg PO DAILY 01/18/20 [History] Omeprazole Magnesium 20 mg PO QPM #30 tablet.dr 01/21/20 [Rx] Simethicone 80 mg PO Q6H PRN #30 tab.chew 01/21/20 [Rx] Oxygen Therapy Mode: Room Air Patient Handouts: Acute Pancreatitis, [id number], Pancreatitis Eating Plan, Sepsis, Self Care, Adult Forms: ED Department Discharge Referrals: Linda Sanchez MD [Primary Care Provider] - 01/28/20 2:00 pm (please attend the scheduled follow up appointment as listed. ) Malena Reyes NP [Ordering Only Provider] - 01/27/20 3:15 pm (appointment is in [place] time- come 15 minutes prior to the appointment , bring photo ID and insurance cards) - Discharge Summary/Plan Comment DC Time >30 min.: Yes - General Info Functional Status: Reports: New Symptoms - Review of Systems General: Reports: No Symptoms - Patient Data Vitals - Most Recent: Last Vital Signs Temp 98.1 F 01/21/20 11:18 Pulse 59 L 01/21/20 11:18 Resp 18 01/21/20 11:18 BP 108/57 L 01/21/20 11:18 Pulse Ox 98 01/21/20 11:18 Weight - Most Recent: 189 lb 11.2 oz I&O - Last 24 hours: Intake & Output 01/20/20 01/21/20 01/21/20 22:59 06:59 14:59 Intake Total 700 1400 Output Total 1200 1900 Balance -500 -500 - Exam General: Reports: Alert, Oriented HEENT: Reports: Pupils Equal, Pupils Reactive, EOMI, Mucous Membr. Moist/[place] Neck: Reports: Supple Lungs: Reports: Clear to Auscultation, Normal Respiratory Effort Cardiovascular: Reports: Regular Rate, Regular Rhythm GI/Abdominal Exam: Normal Bowel Sounds, Soft, Non-Tender, No Organomegaly, No Distention, No Abnormal Bruit Back Exam: Reports: Normal Inspection, Full Range of Motion Extremities: Normal Inspection, Normal Range of Motion, Non-Tender Skin: Reports: Warm, Dry, Intact Neurological: Reports: No New Focal Deficit Psy/Mental Status: Reports: Alert, Normal Affect, Normal Mood
== END 2020-01-21 14:10 | disposition home or self-care (01) | DRG 439 ==
LOC: JD.ED 18:03 → JD.MS 20:59
PROVIDERS: ADMIT Family Medicine; ATTEND Family Medicine
DX: K85.80 Other acute pancreatitis without necrosis or infection (principal); H54.7 Unspecified visual loss; E87.1 Hypo-osmolality and hyponatremia; K56.7 Ileus, unspecified; L30.9 Dermatitis, unspecified; Z20.828 Contact with and (suspected) exposure to other viral communicable diseases; E78.5 Hyperlipidemia, unspecified; E03.9 Hypothyroidism, unspecified; I51.89 Other ill-defined heart diseases; E83.39 Other disorders of phosphorus metabolism; E88.09 Other disorders of plasma-protein metabolism, not elsewhere classified; Z98.890 Other specified postprocedural states; K59.00 Constipation, unspecified; E78.00 Pure hypercholesterolemia, unspecified; M19.90 Unspecified osteoarthritis, unspecified site; M54.2 Cervicalgia; G89.29 Other chronic pain; F41.9 Anxiety disorder, unspecified; F32.9 Major depressive disorder, single episode, unspecified; G62.9 Polyneuropathy, unspecified; Z91.040 Latex allergy status; Z88.8 Allergy status to other drugs, medicaments and biological substances; Z79.890 Hormone replacement therapy; Z79.899 Other long term (current) drug therapy; Z98.49 Cataract extraction status, unspecified eye; Z90.49 Acquired absence of other specified parts of digestive tract; Z90.710 Acquired absence of both cervix and uterus
CPT/HCPCS: 36415; 74177; 80053; 82977; 83690; 84478; 85007; 85027; 86140; 96374; 99285; J2405; J2765; J7030; Q9963; Q9967; 74018; 74018-26; 76700; 76700-26; 80048; 81001; 83036; 83735; 84100; 85025; 96375; 96376; 99222; 99232; 99239; A9270-GY; C9113; J1170; J1650; J2175; J2543; J2550; J3475; J3490; J7040; J7042; J7050; U0002

== ENCOUNTER 2020-06-30 20:39 | Inpatient (IN) | payer MEDICARE, BC ==
[2020-06-30] MEDS ORDERED: HYDROmorphone 1 MG/ML Syringe IVPUSH STA (21:05)
[2020-06-30] MEDS ORDERED: Ondansetron 4 MG/2 ML SDV IVPUSH ONE (21:05)
--- NOTE | 2020-06-30 21:12 | EDM.PDOC ---
ED HPI GENERAL MEDICAL PROBLEM - General Chief Complaint: Abdominal Pain Stated Complaint: ABDOMINAL PAIN Time Seen by Provider: 06/30/20 20:50 Source of Information: Reports: Patient, Other (Friend) History Limitations: Reports: No Limitations - History of Present Illness INITIAL COMMENTS - FREE TEXT/NARRATIVE: Mrs. Nicole is a very pleasant 64-year-old woman who now presents to the ED with wax and wane epigastric pain that began last night, but has since gotten worse. She states that the pain sometimes feels sharp, at other times like a pressure. She also states that she feels cramps in her lower abdomen. She has not identified any modifiers to her pain, although notes that her pain began after she ate a fatty meal last night. She has had nausea, and vomited once. She states that she had one hard bowel movement today, but no recent constipation or diarrhea. No recent fever or urinary symptoms. She states that her current symptoms are very similar to when she was diagnosed with pancreatitis in this ED on 01/17/2020. She states that a subsequent ERCP at [facility] in March did not find any significant abnormalities. She states that she took 400 mg of ibuprofen this morning, and another 400 mg just prior to coming to the ED. She last ate last night. Here in the ED, the patient's initial BP is found to be slightly elevated at 146/65, otherwise, she is hemodynamically stable, afebrile, saturating 97% on room air. Prior to last night, the patient denies having a recent fever, chills, sore throat, ear pain, nasal or sinus congestion, cough, dyspnea, chest pain, palpitations, nausea, vomiting, constipation, diarrhea, abdominal pain, urinary symptoms, recent weight gain or weight loss, recent bloody bowel movements or black bowel movements, recent joint aches, headaches, or rashes. The patient's PCP is Dr. Linda Sanchez. Her Haulage Boss is Dr. Zachariah Rios. Her gastroenterology midlevel is Malena Reyes NP. She states that she received an influenza vaccine in March. Right Abdomen Pain Score (Numeric/FACES): 8 - Related Data Allergies Allergy/AdvReac Type Severity Reaction Status Date / Time latex Allergy Hives Verified 06/30/20 20:52 nabumetone Allergy Hives Verified 06/30/20 20:52 Eqxbqxz-Fyj-Ivk Reductase AdvReac Lethargy Verified 06/30/20 20:52 Inhibitor Home Meds: Home Meds Fish Oil/[place]-3 Fatty Acids [Fish Oil 1,000 MG] 1 tab PO DAILY 08/12/17 [History] Multivitamin [Multivitamins] 1 tab PO DAILY 08/12/17 [History] Hydroxychloroquine Sulfate [Plaquenil] 200 mg PO DAILY 10/15/18 [History] Folic Acid 1 mg PO DAILY 01/17/20 [History] Acetaminophen [Tylenol] 650 mg PO DAILY 01/18/20 [History] Omeprazole Magnesium 20 mg PO QPM #30 tablet. 01/21/20 [Rx] Levothyroxine 75 mg PO MOWEFR 06/30/20 [History] Levothyroxine [Synthroid] 88 mg PO ACBREAKFAST 06/30/20 [History] Simponi Iv Infusion 06/30/20 [History] Past Medical History HEENT History: Reports: Impaired Vision Cardiovascular History: Reports: High Cholesterol Gastrointestinal History: Reports: Pancreatitis Musculoskeletal History: Reports: RA Psychiatric History: Reports: Anxiety Endocrine/Metabolic History: Reports: Hypothyroidism, Obesity/BMI 30+, Osteopenia Dermatologic History: Reports: Eczema - Infectious Disease History Infectious Disease History: Reports: Chicken Pox, Measles, Mumps - Past Surgical History HEENT Surgical History: Reports: Cataract Surgery (bilateral), Oral Surgery (dental extractions) GI Surgical History: Reports: Appendectomy, ERCP (x 1, Mar 2020) Female Surgical History: Reports: Hysterectomy (partial), Tubal Ligation Social & Family History - Tobacco Use Tobacco Use Status *Q: Never Tobacco User - Caffeine Use Caffeine Use: Reports: Coffee, Tea Other Caffeine Use: 3 cups/coffee - Alcohol Use Alcohol Use History: Yes Alcohol Use Frequency: Rarely - Recreational Drug Use Recreational Drug Use: No - Living Situation & Occupation Living situation: Reports: , with Spouse Occupation: Retired ED ROS GENERAL - Review of Systems Review Of Systems: Comprehensive ROS is negative, except as noted in HPI. ED EXAM, GI/ABD - Physical Exam Exam: See Below Exam Limited By: No Limitations General Appearance: Alert, WD/WN, No Apparent Distress Eyes: Bilateral: Normal Appearance, EOMI Ears: Normal External Exam, Hearing Grossly Normal Nose: Normal Inspection Throat/Mouth: Normal Inspection, Normal Lips, Normal Voice, No Airway Compromise Head: Atraumatic, Normocephalic Neck: Normal Inspection, Full Range of Motion Respiratory/Chest: No Respiratory Distress, Lungs Clear, Normal Breath Sounds, No Accessory Muscle Use Cardiovascular: Normal Peripheral Pulses, Regular Rate, Rhythm, No Edema, No Gallop, No JVD, No Murmur, No Rub GI/Abdominal Exam: Normal Bowel Sounds (active), Soft, No Organomegaly, No Distention, No Abnormal Bruit, No Mass, Tender (considerable, to the right side of the epigastrium, with less tenderness to the remainder of the upper abdomen, and essentially no tenderness to the lower abdomen) Back Exam: Normal Inspection, Full Range of Motion. No: CVA Tenderness (L), CVA Tenderness (R) Extremities: Normal Inspection, Normal Range of Motion, No Pedal Edema, Normal Capillary Refill Neurological: Alert, Oriented, Normal Cognition, No Motor/Sensory Deficits Psychiatric: Normal Affect Skin Exam: Warm, Dry, Intact, Normal Color, No Rash Course - Vital Signs Last Recorded V/S: Last Vital Signs Temp 36.8 C 06/30/20 20:49 Pulse 67 06/30/20 20:49 Resp 18 06/30/20 20:49 BP 146/65 H 06/30/20 20:49 Pulse Ox 97 06/30/20 20:49 - Orders/Labs/Meds Orders: Active Orders 24 hr Category Date Time Status Abdomen Ltd [US] Stat Exams 06/30/20 21:08 Taken Abdomen Pelvis w Cont [CT] Stat Exams 06/30/20 21:05 Taken Sodium Chloride 0.9% [Normal Saline] 1,000 ml Med 06/30/20 21:15 Active IV ASDIRECTED Sodium Chloride 0.9% [Normal Saline] 100 ml Med 07/01/20 00:15 Active IV ASDIRECTED Medication Orders Sodium Chloride (Normal Saline) 1,000 mls @ 150 mls/hr IV ASDIRECTED LUCRECIA Last Admin: 06/30/20 21:19 Dose: 150 mls/hr Documented by: ALFREDO Sodium Chloride (Normal Saline) 100 mls @ 60 drops/min IV ASDIRECTED LUCRECIA Last Admin: 07/01/20 00:10 Dose: 60 drops/min Documented by: MINA Labs: Laboratory Tests 06/30/20 06/30/20 Range/Units 21:18 21:18 WBC 12.53 H (3.98-10.04) K/mm3 RBC 3.38 L (3.98-5.22) M/mm3 Hgb 11.3 D (11.2-15.7) gm/dl Hct 34.1 (34.1-44.9) % MCV 100.9 H (79.4-94.8) fl MCH 33.4 H (25.6-32.2) pg MCHC 33.1 (32.2-35.5) g/dl RDW Std Deviation 51.1 H (36.4-46.3) fL Plt Count 312 (182-369) K/mm3 MPV 8.5 L (9.4-12.3) fl Neutrophils % (Manual) 71 H (40-60) % Band Neutrophils % 0 (0-10) % Lymphocytes % (Manual) 16 L (20-40) % Atypical Lymphs % 3 % Monocytes % (Manual) 9 (2-10) % Eosinophils % (Manual) 1 (0.7-5.8) % Basophils % (Manual) 0 L (0.1-1.2) Platelet Estimate Adequate Anisocytosis 1+ slight Macrocytosis 1+ slight RBC Morph Comment Not Reportable Sodium 134 L (136-145) mEq/L Potassium 3.9 (3.5-5.1) mEq/L Chloride 97 L (98-107) mEq/L Carbon Dioxide 26 (21-32) mEq/L Anion Gap 14.9 (5-15) BUN 11 (7-18) mg/dL Creatinine 0.9 (0.55-1.02) mg/dL Est Cr Clr Drug Dosing 49.29 mL/min Estimated GFR (MDRD) > 60 (>60) mL/min BUN/Creatinine Ratio 12.2 L (14-18) Glucose 84 (80-115) mg/dL Calcium 9.0 (8.5-10.1) mg/dL Magnesium 1.9 (1.8-2.4) mg/dl Total Bilirubin 0.7 (0.2-1.0) mg/dL AST 22 (15-37) U/L ALT 22 (14-59) U/L Alkaline Phosphatase 68 (46-116) U/L Total Protein 7.8 (6.4-8.2) g/dl Albumin 3.6 (3.4-5.0) g/dl Globulin 4.2 gm/dL Albumin/Globulin Ratio 0.9 L (1-2) Lipase 4400 H (73-393) U/L Meds: Medications Generic Name Dose Route Start Last Admin Trade Name Bree PRN Reason Stop Dose Admin Sodium Chloride 1,000 mls @ 150 mls/hr 06/30/20 21:15 06/30/20 21:19 Normal Saline IV 150 mls/hr ASDIRECTED LUCRECIA Administration Sodium Chloride 100 mls @ 60 drops/min 07/01/20 00:15 07/01/20 00:10 Normal Saline IV 60 drops/min ASDIRECTED LUCRECIA Administration Discontinued Medications Generic Name Dose Route Start Last Admin Trade Name Freq PRN Reason Stop Dose Admin Hydromorphone HCl 0.5 mg 06/30/20 21:05 06/30/20 21:19 Dilaudid IVPUSH 06/30/20 21:06 0.5 mg ONETIME STA Administration Iopamidol 100 ml 07/01/20 00:08 07/01/20 00:10 Isovue-300 (61%) IVPUSH 07/01/20 00:09 100 ml ONETIME ONE Administration Ondansetron HCl 4 mg 06/30/20 21:05 06/30/20 21:19 Zofran IVPUSH 06/30/20 21:06 4 mg ONETIME ONE Administration Ondansetron HCl 4 mg 07/01/20 00:34 Zofran IVPUSH 07/01/20 00:35 ONETIME ONE - Re-Assessments/Exams Free Text/Narrative Re-Assessment/Exam: 06/30/20 21:07 As above, the patient developed epigastric pain radiating through to her back last night, which has become worse since. She vomited once. Her physical exam is remarkable for significant tenderness to the epigastric area, with the remainder of her exam being grossly unremarkable. I have ordered a work-up that includes an ultrasound of the right upper quadrant, several blood tests, and a CT of her abdomen and pelvis with oral and IV contrast. In the meantime, the patient will be treated with IV Dilaudid, IV Zofran, and IV fluid. 06/30/20 22:18 The patient's CBC is remarkable for mild leukocytosis of 12.53, but with 0% bandemia. The remainder of her CBC is unremarkable. Her CMP is remarkable for slight hyponatremia of 134, with the remainder of her CMP being unremarkable. Her magnesium level is within normal limits at 1.9. Her lipase level is significantly elevated at 4400. 06/30/20 22:38 Ultrasound of the right upper quadrant is read by [facility] as "No acute findings." 07/01/20 00:18 CT of the abdomen and pelvis with oral and IV contrast is read by [facility] as " Inflammatory stranding surrounding the head of the pancreas suggests mild pancreatitis." 07/01/20 00:33 Test results discussed with the patient. I recommend admission to the hospital. The patient was agreeable. 07/01/20 00:[address] Fowler at 00:33. He agreed to admit the patient. He asked that I write bridge orders. Departure - Departure Time of Disposition: 00:35 Disposition: Admitted As Inpatient 65 Condition: Good Clinical Impression: Acute pancreatitis - Discharge Information *PRESCRIPTION DRUG MONITORING PROGRAM REVIEWED*: Not Applicable *COPY OF PRESCRIPTION DRUG MONITORING REPORT IN PATIENT ROSI: Not Applicable Referrals: Linda Sanchez MD [Primary Care Provider] - Zachariah Rios MD [Ordering Only Provider] - Malena Reyes NP [Ordering Only Provider] - Forms: ED Department Discharge Sepsis Event Note (ED) - Evaluation Sepsis Screening Result: No Definite Risk - Focused Exam Vital Signs: Vital Signs Temp Pulse Resp BP Pulse Ox 06/30/20 20:49 36.8 C 67 18 146/65 H 97 - My Orders Last 24 Hours: My Active Orders 06/30/20 21:05 Abdomen Pelvis w Cont [CT] Stat 06/30/20 21:08 Abdomen Ltd [US] Stat 06/30/20 21:15 Sodium Chloride 0.9% [Normal Saline] 1,000 ml IV ASDIRECTED 07/01/20 00:15 Sodium Chloride 0.9% [Normal Saline] 100 ml IV ASDIRECTED - Assessment/Plan Last 24 Hours: My Active Orders 06/30/20 21:05 Abdomen Pelvis w Cont [CT] Stat 06/30/20 21:08 Abdomen Ltd [US] Stat 06/30/20 21:15 Sodium Chloride 0.9% [Normal Saline] 1,000 ml IV ASDIRECTED 07/01/20 00:15 Sodium Chloride 0.9% [Normal Saline] 100 ml IV ASDIRECTED
[2020-06-30] MEDS: Sodium Chloride 0.9% 1,000 ML IV SCH (21:19)
[2020-07-01] MEDS ORDERED: Iopamidol 612 MG/ML 100 ML Bottle IVPUSH ONE (00:08)
[2020-07-01] MEDS ORDERED: Sodium Chloride 0.9% 100 ML IV SCH (00:15)
[2020-07-01] MEDS ORDERED: Ondansetron 4 MG/2 ML SDV IVPUSH ONE (00:34)
[2020-07-01] MEDS ORDERED: HYDROmorphone 0.5 MG/0.5 ML Syringe IVPUSH ONE (00:49)
[2020-07-01] MEDS: Sodium Chloride 0.9% 1,000 ML IV SCH ×3 (04:59→18:43)
[2020-07-01] MEDS: HYDROmorphone 0.5 MG/0.5 ML Syringe IVPUSH PRN ×3 (05:34→21:09)
[2020-07-01] MEDS: Ondansetron 4 MG/2 ML SDV IVPUSH PRN ×3 (05:36→16:34)
--- NOTE | 2020-07-01 07:09 | PCM.HP.2 ---
H&P History of Present Illness - General Date of Service: 07/01/20 Admit Problem/Dx: Admission Diagnosis/Problem Admission Diagnosis/Problem Acute pancreatitis Source of Information: Patient, Old Records, Provider, RN Notes Reviewed History Limitations: Reports: No Limitations - History of Present Illness Initial Comments - Free Text/Narative: This is a 64 yo white female with past medical hx/o Impaired Vision, HTN, Hx/o Pancreatitis, RA, Hypothyroidism, Osteopenia, Eczema, Anxiety and Obesity who presented to ED with complaints of waxing and waning epigastric pain that started last night after supper associated with nausea as well as vomiting and was diagnosed with acute pancreatitis. She carries a hx/o acute pancreatitis diagnosed on 01/17/2020. She has had ERCP before and her GB has been removed. Before she came to ED last night, she took some Ibuprofen but w/o relief of her belly pain. She denies having fever or chills. No signs of URI. She has no complaints. Patient was admitted overnight by ED provider to [facility] floor. She now feels better but still has lingering abdominal pain and nausea w/o emesis. Her initial work up last revealed a CBC remarkable for WBC of 12.53, RBC of 3.38, MCV of 100.9, MCH of 33.4, RDW of 51.1, MPV of 8.5, Neutrophils of 71%, Lymphocytes of 16%, and ESR of 44. Her initial chemistry was significant for NA of 134, CL of 97, CRP of 6.3, and Lipase of 4400. Her LA was normal. Her COVID- 219 rapid test was negative. Abdominal U/S report read as nothing acute see. Her abdominal/pelvis CT scan report rad as very slight haziness around the pancreatic head and neck , difficult to exclude very early pancreatitis. Right Abdomen Pain Score (Numeric/FACES): 8 neck Pain Score (Numeric/FACES): 3 - Related Data Allergies/Adverse Reactions: Allergies Allergy/AdvReac Type Severity Reaction Status Date / Time latex Allergy Hives Verified 06/30/20 20:52 nabumetone Allergy Hives Verified 06/30/20 20:52 Gzmroei-Rdj-Stz Reductase AdvReac Lethargy Verified 06/30/20 20:52 Inhibitor Home Medications: Home Meds Fish Oil/[place]-3 Fatty Acids [Fish Oil 1,000 MG] 1 tab PO 1800 02/27/18 [ History] Multivitamin [Multivitamins] 1 tab PO DAILY 08/12/17 [History] Hydroxychloroquine Sulfate [Plaquenil] 200 mg PO DAILY 10/15/18 [History] Folic Acid 1 mg PO 1200 01/17/20 [History] Acetaminophen [Tylenol] 650 mg PO Q4HR PRN 01/18/20 [History] Levothyroxine 75 mg PO MOWEFR 06/30/20 [History] Levothyroxine [Synthroid] 88 mg PO SUTUTHSA 06/30/20 [History] Simponi Iv Infusion 160.2 mg IV ASDIRECTED 06/30/20 [History] Calcium Carbonate [Calcium] 1,000 mg PO 1200 07/01/20 [History] Citalopram [Citalopram HBr] 20 mg PO BEDTIME 07/01/20 [History] Gabapentin [Neurontin] 600 mg PO BEDTIME 07/01/20 [History] Glucosam/Chondr/Collagn/Hyalur [Glucosamine & Chondroitin Cap] 1 cap PO 1800 07/01/20 [History] Ibuprofen [Ibu] 400 mg PO Q6HR PRN 07/01/20 [History] Magnesium Oxide [Magnesium] 400 mg PO 1800 07/01/20 [History] Methotrexate 20 mg PO SA 07/01/20 [History] Omeprazole Magnesium 20 mg PO ACBREAKFAST 07/01/20 [History] Past Medical History HEENT History: Reports: Allergic Rhinitis, Cataract Cardiovascular History: Reports: High Cholesterol Respiratory History: Reports: Other (See Below) Other Respiratory History: allergies Gastrointestinal History: Reports: Gastritis, Pancreatitis Genitourinary History: Reports: None [employer] History: Reports: Musculoskeletal History: Reports: RA Other Musculoskeletal History: in December had high rheumnatoid factor and is to see doctor in May, 2918 Psychiatric History: Reports: Anxiety Endocrine/Metabolic History: Reports: Hypothyroidism, Obesity/BMI 30+, Osteopenia Immunologic History: Reports: Immunosuppression Dermatologic History: Reports: Eczema - Infectious Disease History Infectious Disease History: Reports: Chicken Pox, Influenza, Measles, MRSA, M umps - Past Surgical History HEENT Surgical History: Reports: Cataract Surgery Cardiovascular Surgical History: Reports: None Respiratory Surgical History: Reports: None GI Surgical History: Reports: Appendectomy, ERCP Female Surgical History: Reports: Hysterectomy, Tubal Ligation Endocrine Surgical History: Reports: None Musculoskeletal Surgical History: Reports: None Dermatological Surgical History: Reports: None Social & Family History - Family History Family Medical History: No Pertinent Family History - Tobacco Use Tobacco Use Status *Q: Never Tobacco User Second Hand Smoke Exposure: Yes - Caffeine Use Caffeine Use: Reports: Coffee Other Caffeine Use: 3 cups/coffee - Recreational Drug Use Recreational Drug Use: No - Living Situation & Occupation Living situation: Reports: , with Spouse Occupation: Retired H&P Review of Systems - Review of Systems: Review Of Systems: See Below General: Denies: Fever, Chills, Malaise, Weakness HEENT: Denies: Headaches, Sore Throat Pulmonary: Denies: Shortness of Breath, Cough Cardiovascular: Denies: Chest Pain, Dyspnea on Exertion, Lightheadedness Gastrointestinal: Reports: Abdominal Pain, Decreased Appetite, Nausea, Vomiting Genitourinary: Denies: Dysuria, Frequency, Burning Musculoskeletal: Denies: Joint Pain Skin: Denies: Jaundice, Bruising, Pruritis, Rash Psychiatric: Denies: Confusion, Depression, Anxiety Neurological: Denies: Confusion, Seizure, Difficulty Walking, Weakness, Gait Disturbance Hematologic/Lymphatic: Reports: No Symptoms Immunologic: Reports: No Symptoms Exam - Exam Exam: See Below - Vital Signs Vital Signs: Last Vital Signs Temp 36.8 C 07/01/20 05:41 Pulse 67 07/01/20 05:41 Resp 14 07/01/20 05:41 BP 126/93 H 07/01/20 05:41 Pulse Ox 93 L 07/01/20 05:41 Weight: 79.56 kg - Exam General: Alert, Oriented, Cooperative, Other (Obese). No: Mild Distress HEENT: Conjunctiva Clear, EACs Clear, EOMI, Hearing Intact, Mucosa Moist & [place], Nares Patent, Normal Nasal Septum, Posterior Pharynx Clear, Pupils Equal, Pupils Reactive Neck: Supple, Trachea Midline Lungs: Clear to Auscultation, Normal Respiratory Effort Cardiovascular: Regular Rate, Regular Rhythm GI/Abdominal Exam: Normal Bowel Sounds, Soft, No Organomegaly, Tender (upper abdomen). No: No Distention, No Abnormal Bruit, No Mass (Female) Exam: Deferred Rectal (Female) Exam: Deferred Back Exam: Normal Inspection, Vertebral Tenderness Extremities: Normal Inspection, Normal Range of Motion, Non-Tender, No Pedal Edema, Normal Capillary Refill Peripheral Pulses: 2+: Dorsalis Pedis (L), Dorsalis Pedis (R) Skin: Warm, Dry, Intact Neuro Extensive - Mental Status: Oriented x3, Normal Cognition, Memory Intact Neuro Extensive - Motor, Sensory, Reflexes: CN II-XII Intact, Normal Gait Psychiatric: Alert, Normal Affect, Normal Mood - Patient Data Lab Results Last 24 hrs: Laboratory Results - last 24 hr 06/30/20 06/30/20 07/01/20 Range/Units 21:18 21:18 00:47 WBC 12.53 H (3.98-10.04) K/mm3 RBC 3.38 L (3.98-5.22) M/mm3 Hgb 11.3 D (11.2-15.7) gm/dl Hct 34.1 (34.1-44.9) % MCV 100.9 H (79.4-94.8) fl MCH 33.4 H (25.6-32.2) pg MCHC 33.1 (32.2-35.5) g/dl RDW Std Deviation 51.1 H (36.4-46.3) fL Plt Count 312 (182-369) K/mm3 MPV 8.5 L (9.4-12.3) fl Neutrophils % (Manual) 71 H (40-60) % Band Neutrophils % 0 (0-10) % Lymphocytes % (Manual) 16 L (20-40) % Atypical Lymphs % 3 % Monocytes % (Manual) 9 (2-10) % Eosinophils % (Manual) 1 (0.7-5.8) % Basophils % (Manual) 0 L (0.1-1.2) Platelet Estimate Adequate Anisocytosis 1+ slight Macrocytosis 1+ slight RBC Morph Comment Not Reportable Sodium 134 L (136-145) mEq/L Potassium 3.9 (3.5-5.1) mEq/L Chloride 97 L (98-107) mEq/L Carbon Dioxide 26 (21-32) mEq/L Anion Gap 14.9 (5-15) BUN 11 (7-18) mg/dL Creatinine 0.9 (0.55-1.02) mg/dL Est Cr Clr Drug Dosing 49.29 mL/min Estimated GFR (MDRD) > 60 (>60) mL/min BUN/Creatinine Ratio 12.2 L (14-18) Glucose 84 (80-115) mg/dL Calcium 9.0 (8.5-10.1) mg/dL Magnesium 1.9 (1.8-2.4) mg/dl Total Bilirubin 0.7 (0.2-1.0) mg/dL AST 22 (15-37) U/L ALT 22 (14-59) U/L Alkaline Phosphatase 68 (46-116) U/L Total Protein 7.8 (6.4-8.2) g/dl Albumin 3.6 (3.4-5.0) g/dl Globulin 4.2 gm/dL Albumin/Globulin Ratio 0.9 L (1-2) Lipase 4400 H (73-393) U/L SARS-CoV-2 RNA (YASH) Negative (NEGATIVE) 07/01/20 Range/Units 05:40 WBC (3.98-10.04) K/mm3 RBC (3.98-5.22) M/mm3 Hgb (11.2-15.7) gm/dl Hct (34.1-44.9) % MCV (79.4-94.8) fl MCH (25.6-32.2) pg MCHC (32.2-35.5) g/dl RDW Std Deviation (36.4-46.3) fL Plt Count (182-369) K/mm3 MPV (9.4-12.3) fl Neutrophils % (Manual) (40-60) % Band Neutrophils % (0-10) % Lymphocytes % (Manual) (20-40) % Atypical Lymphs % % Monocytes % (Manual) (2-10) % Eosinophils % (Manual) (0.7-5.8) % Basophils % (Manual) (0.1-1.2) Platelet Estimate Anisocytosis Macrocytosis RBC Morph Comment Sodium 136 (136-145) mEq/L Potassium 4.1 (3.5-5.1) mEq/L Chloride 100 (98-107) mEq/L Carbon Dioxide 22 (21-32) mEq/L Anion Gap 18.1 H (5-15) BUN 10 (7-18) mg/dL Creatinine 0.8 (0.55-1.02) mg/dL Est Cr Clr Drug Dosing 56.72 mL/min Estimated GFR (MDRD) > 60 (>60) mL/min BUN/Creatinine Ratio 12.5 L (14-18) Glucose 81 (80-115) mg/dL Calcium 8.5 (8.5-10.1) mg/dL Magnesium (1.8-2.4) mg/dl Total Bilirubin (0.2-1.0) mg/dL AST (15-37) U/L ALT (14-59) U/L Alkaline Phosphatase (46-116) U/L Total Protein (6.4-8.2) g/dl Albumin (3.4-5.0) g/dl Globulin gm/dL Albumin/Globulin Ratio (1-2) Lipase (73-393) U/L SARS-CoV-2 RNA (YASH) (NEGATIVE) Result Diagrams: 06/30/20 21:18 07/01/20 05:40 Sepsis Event Note - Evaluation Sepsis Screening Result: No Definite Risk - Focused Exam Vital Signs: Vital Signs Temp Temp Pulse Pulse Resp BP BP 07/01/20 05:41 36.8 C 67 14 126/93 H 07/01/20 01:58 37.2 C 66 16 137/92 H 06/30/20 20:49 36.8 C 67 18 146/65 H Pulse Ox 07/01/20 05:41 93 L 07/01/20 01:58 97 06/30/20 20:49 97 Problem List Initiated/Reviewed/Updated: Yes Orders Last 24hrs: Active Orders 24 hr Category Date Time Status Patient Status [ADT] Routine ADT 07/01/20 01:36 Active Bedrest Bathroom Privileges [RC] ASDIRECTED Care 07/01/20 02:54 Active NPO Now [Nothing per Oral Now Diet] [DIET] Diet 07/01/20 Breakfast Active Abdomen Ltd [US] Stat Exams 06/30/20 21:08 Taken Abdomen Pelvis w Cont [CT] Stat Exams 06/30/20 21:05 Taken HYDROmorphone [Dilaudid] Med 07/01/20 02:56 Active 0.5 mg IVPUSH Q1H PRN Ondansetron [Zofran] Med 07/01/20 02:59 Active 4 mg IVPUSH Q6H PRN Sodium Chloride 0.9% [Normal Saline] 1,000 ml Med 06/30/20 21:15 Active IV ASDIRECTED Code Status [Resuscitation Status] Routine Resus Stat 07/01/20 02:53 Ordered Medication Orders Hydromorphone HCl (Dilaudid) 0.5 mg IVPUSH Q1H PRN PRN Reason: Pain Last Admin: 07/01/20 05:34 Dose: 0.5 mg Documented by: SANTOS Sodium Chloride (Normal Saline) 1,000 mls @ 150 mls/hr IV ASDIRECTED [facility] Last Admin: 07/01/20 04:59 Dose: 150 mls/hr Documented by: Infusion: 07/01/20 04:00 Dose: 150 mls/hr Documented by: Admin: 06/30/20 21:19 Dose: 150 mls/hr Documented by: ALFREDO Ondansetron HCl (Zofran) 4 mg IVPUSH Q6H PRN PRN Reason: Nausea/Vomiting Last Admin: 07/01/20 05:36 Dose: 4 mg Documented by: SANTOS Assessment/Plan Comment:: This is a 64 yo white female with past medical hx/o Impaired Vision, HTN, Hx/o Pancreatitis, RA, Hypothyroidism, Osteopenia, Eczema, Anxiety and Obesity who presented to ED with complaints of waxing and waning epigastric pain that started last night after supper associated with nausea as well as vomiting and was diagnosed with acute pancreatitis. Assessment: Acute: Abdominal Pain * 2/2 Acute pancreatitis * NPO except ice chips and oral meds * PRN pain medications and anti-emetic agents Pancreatitis with Lipase of 4400 * Carries a hx/o acute pancreatitis last year * Happened right after supper last night * LA is wnl; CRP is mildly elevated at 6.3 * NPO except ice chips * Abdominal/pelvis CT scan report confirm mild pancreatitis Leukocytosis * WBC of 12.53 with Neutrophils of 71% * 2/2 acute pancreatitis * We will monitor Nausea/Vomiting * 2/2 above * PRN anti-emetic agents Mild Hyponatremia and Hypochloremia * Na of 134 and CL of 97 * Likely from GI loss * She is currently hydrating * We will monitor Class I Obese * BMI of 31.6 * Dietary consult for weight management * Chronic: Impaired Vision, HTN, Hx/o Pancreatitis, RA, Hypothyroidism, Osteopenia, Eczema, Anxiety and Obesity Plan: Admitted to [facility] overnight. She a little better this morning. Continue current treatment. Lipid panel in AM. Meliton's criteria is incomplete. No need to pursue it as she looks clinically stable at this point. May resume home oral medications. IV fluids for hydration. DVT/GI PPx: SCDs and PPI. Code status is full. - Mortality Measure Prognosis:: Good
[2020-07-01] MEDS ORDERED: Polyethylene Glycol 3350 Powder 17 GM Packet PO PRN (07:38)
[2020-07-01] MEDS ORDERED: Albuterol/Ipratropium 3.0-0.5 MG/3 ML Neb Soln NEB PRN (07:38)
[2020-07-01] MEDS ORDERED: Acetaminophen 325 MG Tab PO PRN ×2 (07:38→15:24)
[2020-07-01] MEDS ORDERED: Ibuprofen 600 MG Tab PO PRN (07:38)
--- NOTE | 2020-07-01 07:50 | US ---
Limited abdominal ultrasound: Multiple real-time images were obtained of the upper right abdomen. Comparison: Prior abdominal ultrasound of 01/18/20. Findings: Liver contains no focal abnormality. Visualized portions of the pancreas appear within normal limits. Gallbladder contains no shadowing gallstones. No gallbladder wall thickening or biliary duct dilatation is seen. Right kidney shows no hydronephrosis or mass and has a length of 10.3 cm. Main portal vein shows normal hepatopedal flow. Impression: 1. Nothing acute is seen on limited right upper quadrant abdominal ultrasound. Diagnostic code #1
--- NOTE | 2020-07-01 07:50 | CT ---
CT abdomen and pelvis Technique: Multiple axial sections were obtained from above the dome of the diaphragm inferiorly through the pubic symphysis. Intravenous and oral contrast was utilized. Delayed images were also obtained through the abdomen and pelvis. Comparison: Prior CT abdomen and pelvis exam of 01/17/20. Findings: Visualized lung bases show nothing acute. Liver contains no focal parenchymal abnormality. Gallbladder contains no calcified gallstones. Spleen appears normal. Adrenal glands show no nodule. Kidneys show symmetric contrast enhancement. Very small low density finding is seen within the lower right kidney which is stable from prior exam and most likely represents a small cyst. No hydronephrosis is appreciated. Mild haziness is seen around the head and neck of the pancreas. Uncertain if this relates to old pancreatitis or represents very early acute pancreatitis. No other findings of pancreatitis are seen. Aorta shows no aneurysm. Mild atherosclerotic change is seen. No retroperitoneal adenopathy or mesenteric abnormalities are appreciated. No pelvic mass or adenopathy is appreciated. Prior hysterectomy is present. Bone window settings were reviewed which show mild degenerative changes scattered within the spine. No acute osseous finding is appreciated. Delayed images show contrast excretion from both kidneys with no filling defects being seen within the opacified collecting systems or within the ureters. Contrast is noted within the bladder. Impression: 1. Very slight haziness around the pancreatic head and neck. Difficult to exclude very early pancreatitis. Finding could also relate to residual change from prior pancreatitis. Please correlate with amylase and lipase. 2. Other findings believed to be incidental as noted above. Diagnostic code #3
[2020-07-01] MEDS: Promethazine 12.5 MG in Sodium Chloride 0.9% 50 ML IV PRN ×2 (11:39→21:08)
[2020-07-01] MEDS ORDERED: Ibuprofen 400 MG Tab PO PRN (15:24)
[2020-07-01] MEDS ORDERED: Methotrexate 2.5 MG Tab PO SCH (15:30)
[2020-07-01] MEDS ORDERED: GOLIMUMAB IV SCH (15:30)
[2020-07-01] MEDS ORDERED: [UNRECOGNIZED DRUG - OTHER] IV SCH (15:30)
[2020-07-01] MEDS: Pantoprazole 40 MG Vial IVPUSH SCH ×2 (16:36→18:04)
[2020-07-01] MEDS: Levothyroxine 88 MCG Tab PO SCH (16:39)
[2020-07-01] MEDS: Magnesium Oxide 400 MG Tab PO SCH ×2 (16:39→18:04)
[2020-07-01] MEDS: Acetaminophen/HYDROcodone 325-5 MG Tab PO PRN (16:42)
[2020-07-01] MEDS: Citalopram 20 MG Tab PO SCH (21:12)
[2020-07-02] MEDS: Acetaminophen/HYDROcodone 325-5 MG Tab PO PRN ×4 (03:09→21:01)
[2020-07-02] MEDS: Sodium Chloride 0.9% 1,000 ML IV SCH ×3 (03:09→17:29)
[2020-07-02] MEDS: Pantoprazole 40 MG Vial IVPUSH SCH ×2 (06:51→17:28)
[2020-07-02] MEDS: Levothyroxine 88 MCG Tab PO SCH (06:51)
[2020-07-02] MEDS: Ondansetron 4 MG/2 ML SDV IVPUSH PRN ×2 (07:00→15:53)
[2020-07-02] MEDS ORDERED: cefTRIAXone 1 GM in Sodium Chloride 0.9% 100 ML IV SCH ×2 (07:30)
[2020-07-02] MEDS ORDERED: Methotrexate 2.5 MG Tab PO SCH (09:00)
--- NOTE | 2020-07-02 09:42 | PCM.PN ---
- General Info Date of Service: 07/02/20 Admission Dx/Problem (Free Text): Admission Diagnosis/Problem Admission Diagnosis/Problem Acute pancreatitis Subjective Update: No overnight issues. She rested very well last night. She is still has epigastric pain associated with mild nausea w/o emesis. She is afebrile. Her WBC and CRP levels have gone up to 22.75K and 19.6, respectively. Her lipase is now down to 410. Her UA is highly suggestive of UTI. Functional Status: Reports: Pain Controlled, Ambulating, Urinating. Denies: Tolerating Diet - Review of Systems General: Denies: Fever, Chills Pulmonary: Denies: Shortness of Breath Cardiovascular: Denies: Chest Pain, Dyspnea on Exertion, Lightheadedness Gastrointestinal: Reports: Abdominal Pain (epigastric), Flatus, Nausea. Denies: Vomiting Genitourinary: Denies: Dysuria, Burning, Pain Musculoskeletal: Denies: Joint Pain Skin: Denies: Bruising, Pruritis, Rash Neurological: Denies: Dizziness, Difficulty Walking, Weakness, Gait Disturbance Psychiatric: Denies: Depression, Anxiety - Patient Data Vitals - Most Recent: Last Vital Signs Temp 36.9 C 07/02/20 07:36 Pulse 56 L 07/02/20 07:36 Resp 16 07/02/20 07:36 BP 133/53 L 07/02/20 07:36 Pulse Ox 95 07/02/20 07:36 Weight - Most Recent: 80.331 kg I&O - Last 24 Hours: Intake & Output 07/01/20 07/02/20 07/02/20 22:59 06:59 14:59 Intake Total 1540 1820 Output Total 850 875 Balance 690 945 Lab Results Last 24 Hours: Laboratory Results - last 24 hr 07/01/20 07/02/20 07/02/20 Range/Units 17:55 04:53 04:53 WBC 22.75 H (3.98-10.04) K/mm3 RBC 2.90 L (3.98-5.22) M/mm3 Hgb 9.7 L D (11.2-15.7) gm/dl Hct 29.9 L (34.1-44.9) % MCV 103.1 H (79.4-94.8) fl MCH 33.4 H (25.6-32.2) pg MCHC 32.4 (32.2-35.5) g/dl RDW Std Deviation 53.5 H (36.4-46.3) fL Plt Count 244 (182-369) K/mm3 MPV 8.8 L (9.4-12.3) fl Neut % (Auto) 87.0 H (34.0-71.1) % Lymph % (Auto) 4.6 L (19.3-51.7) % [place] % (Auto) 8.1 (4.7-12.5) % Eos % (Auto) 0 L (0.7-5.8) Baso % (Auto) 0.0 L (0.1-1.2) % Neut # (Auto) 19.79 H (1.56-6.13) K/mm3 Lymph # (Auto) 1.05 L (1.18-3.74) K/mm3 [place] # (Auto) 1.85 H (0.24-0.36) K/mm3 Eos # (Auto) 0.00 L (0.04-0.36) K/mm3 Baso # (Auto) 0.00 L (0.01-0.08) K/mm3 Manual Slide Review Abnormal smear Sodium 139 (136-145) mEq/L Potassium 4.1 (3.5-5.1) mEq/L Chloride 104 (98-107) mEq/L Carbon Dioxide 20 L (21-32) mEq/L Anion Gap 19.1 H (5-15) BUN 13 (7-18) mg/dL Creatinine 0.8 (0.55-1.02) mg/dL Est Cr Clr Drug Dosing 56.72 mL/min Estimated GFR (MDRD) > 60 (>60) mL/min BUN/Creatinine Ratio 16.3 (14-18) Glucose 90 (80-115) mg/dL Calcium 7.3 L (8.5-10.1) mg/dL Magnesium 2.0 (1.8-2.4) mg/dl Total Bilirubin 0.6 (0.2-1.0) mg/dL AST 17 (15-37) U/L ALT 15 (14-59) U/L Alkaline Phosphatase 50 (46-116) U/L C-Reactive Protein 19.6 H* (<1.0) mg/dL Total Protein 6.4 (6.4-8.2) g/dl Albumin 2.7 L (3.4-5.0) g/dl Globulin 3.7 gm/dL Albumin/Globulin Ratio 0.7 L (1-2) Lipase 410 H (73-393) U/L Urine Color Yellow (Yellow) Urine Appearance Clear (Clear) Urine pH 5.5 (5.0-8.0) Ur Specific [place] > or = 1.030 (1.005-1.030) Urine Protein 1+ H (Negative) Urine Glucose (UA) Negative (Negative) Urine Ketones 3+ H (Negative) Urine Occult Blood 1+ H (Negative) Urine Nitrite Negative (Negative) Urine Bilirubin 1+ H (Negative) Urine Urobilinogen 0.2 (0.2-1.0) Ur Leukocyte Esterase 1+ H (Negative) Urine RBC 5-10 H (0-5) /hpf Urine WBC 10-20 H (0-5) /hpf Ur Squamous Epith Cells 5-10 H (0-5) /hpf Amorphous Sediment Moderate H (NOT SEEN) /hpf Urine Bacteria Moderate H (FEW) /hpf Urine Mucus Not seen (FEW) /hpf Med Orders - Current: Current Medications Acetaminophen (Tylenol) 650 mg PO Q4H PRN PRN Reason: Pain (Mild 1-3)/fever Acetaminophen (Tylenol) 650 mg PO Q4HR PRN PRN Reason: Pain Hydrocodone Bitart/Acetaminophen ([place] 325-5 Mg) 1 tab PO Q4H PRN PRN Reason: Pain (moderate 4-6) Last Admin: 07/02/20 07:01 Dose: 1 tab Documented by: Albuterol/Ipratropium (Duoneb 3.0-0.5 Mg/3 Ml) 3 ml NEB Q4H PRN PRN Reason: Shortness Of Breath/wheezing Calcium Carbonate/Glycine (Tums) 1,000 mg PO DAILY@1200 [facility] Citalopram Hydrobromide (Celexa) 20 mg PO BEDTIME [facility] Last Admin: 07/01/20 21:12 Dose: 20 mg Documented by: Folic Acid (Folic Acid) 1 mg PO 1200 [place] Hydromorphone HCl (Dilaudid) 0.5 mg IVPUSH Q1H PRN PRN Reason: Pain Last Admin: 07/01/20 21:09 Dose: 0.5 mg Documented by: Hydroxychloroquine Sulfate (Plaquenil) 200 mg PO DAILY [facility] Sodium Chloride (Normal Saline) 1,000 mls @ 150 mls/hr IV ASDIRECTED [facility] Last Admin: 07/02/20 03:09 Dose: 150 mls/hr Documented by: Promethazine HCl 12.5 mg/ (Sodium Chloride) 50.5 mls @ 100 mls/hr IV Q6H PRN PRN Reason: Nausea/Vomiting Last Admin: 07/01/20 21:08 Dose: 100 mls/hr Documented by: Ceftriaxone Sodium 1 gm/ (Sodium Chloride) 100 mls @ 200 mls/hr IV Q24H [facility] Last Admin: 07/02/20 09:31 Dose: 200 mls/hr Documented by: Ibuprofen (Motrin) 600 mg PO Q6H PRN PRN Reason: Pain (moderate 4-6) Ibuprofen (Motrin) 400 mg PO Q6HR PRN PRN Reason: Pain Levothyroxine Sodium (Levothyroxine) 75 mcg PO MoWeFr@0600 [facility] Levothyroxine Sodium (Synthroid) 88 mcg PO SuTuThSa@0600 [facility] Last Admin: 07/02/20 06:51 Dose: 88 mcg Documented by: Magnesium Oxide (Magnesium Oxide) 400 mg PO DAILY@1800 [facility] Last Admin: 07/01/20 18:04 Dose: Not Given Documented by: Methotrexate (Methotrexate) 20 mg PO Smith@0900 [facility] Multivitamins (Thera) 1 each PO DAILY [facility] Ondansetron HCl (Zofran) 4 mg IVPUSH Q6H PRN PRN Reason: Nausea/Vomiting Last Admin: 07/02/20 07:00 Dose: 4 mg Documented by: Pantoprazole Sodium (Protonix Iv) 40 mg IVPUSH Q12H [facility] Last Admin: 07/02/20 06:51 Dose: 40 mg Documented by: Polyethylene Glycol (Miralax) 17 gm PO DAILY PRN PRN Reason: Constipation Senna/Docusate Sodium (Senna Plus) 1 tab PO BID PRN PRN Reason: Constipation Zolpidem Tartrate (Ambien) 5 mg PO BEDTIME PRN PRN Reason: Sleep Discontinued Medications Hydromorphone HCl (Dilaudid) 0.5 mg IVPUSH ONETIME STA Stop: 06/30/20 21:06 Last Admin: 06/30/20 21:19 Dose: 0.5 mg Documented by: Hydromorphone HCl (Dilaudid) 0.5 mg IVPUSH ONETIME ONE Stop: 07/01/20 00:50 Last Admin: 07/01/20 00:56 Dose: 0.5 mg Documented by: Sodium Chloride (Normal Saline) 100 mls @ 60 drops/min IV ASDIRECTED [facility] Last Admin: 07/01/20 00:10 Dose: 60 drops/min Documented by: Ceftriaxone Sodium 1 gm/ (Sodium Chloride) 100 mls @ 200 mls/hr IV Q24H [facility] Iopamidol (Isovue-300 (61%)) 100 ml IVPUSH ONETIME ONE Stop: 07/01/20 00:09 Last Admin: 07/01/20 00:10 Dose: 100 ml Documented by: Methotrexate (Methotrexate) 20 mg PO Sa@0900 [facility] Last Admin: 07/01/20 16:53 Dose: Not Given Documented by: Non-Formulary Medication (Simponi Iv Infusion) 160.2 mg IV ASDIRECTED [facility] Ondansetron HCl (Zofran) 4 mg IVPUSH ONETIME ONE Stop: 06/30/20 21:06 Last Admin: 06/30/20 21:19 Dose: 4 mg Documented by: Ondansetron HCl (Zofran) 4 mg IVPUSH ONETIME ONE Stop: 07/01/20 00:35 Last Admin: 07/01/20 00:45 Dose: 4 mg Documented by: - Exam Quality Assessment: No: Supplemental Oxygen General: Alert, Oriented, Cooperative, No Acute Distress HEENT: Pupils Equal, Pupils Reactive, EOMI, Mucous Membr. Moist/[place] Neck: Supple, Trachea Midline Lungs: Clear to Auscultation, Normal Respiratory Effort Cardiovascular: Regular Rate, Regular Rhythm GI/Abdominal Exam: Normal Bowel Sounds, Soft, Non-Tender, No Distention, No Abnormal Bruit (Female) Exam: Deferred, Other (no suprapubic tenderness) Back Exam: Normal Inspection, Decreased Range of Motion Extremities: Normal Inspection, Normal Range of Motion, Non-Tender, No Pedal Ed elin, Normal Capillary Refill Peripheral Pulses: 2+: Dorsalis Pedis (L), Dorsalis Pedis (R) Skin: Warm, Dry, Intact Neurological: No New Focal Deficit Psy/Mental Status: Alert, Normal Affect, Normal Mood Sepsis Event Note - Evaluation Sepsis Screening Result: No Definite Risk - Focused Exam Vital Signs: Vital Signs Temp Pulse Resp BP Pulse Ox 07/02/20 07:36 36.9 C 56 L 16 133/53 L 95 07/02/20 04:15 36.8 C 70 14 118/80 97 07/02/20 00:01 36.7 C 65 14 112/58 L 95 - Problem List Review Problem List Initiated/Reviewed/Updated: Yes - My Orders Last 24 Hours: My Active Orders 07/01/20 15:24 Acetaminophen [TylenoL] 650 mg PO Q4HR PRN Ibuprofen [Motrin] 400 mg PO Q6HR PRN 07/01/20 15:30 Levothyroxine [Synthroid] 88 mcg PO SuTuThSa@0600 07/01/20 15:35 Communication Order [RC] ROUTINE 07/01/20 18:00 Magnesium Oxide 400 mg PO DAILY@1800 Pantoprazole [ProTONIX IV] 40 mg IVPUSH Q12H 07/01/20 21:00 Citalopram [Celexa] 20 mg PO BEDTIME 07/02/20 07:30 cefTRIAXone [Rocephin] 1 gm Sodium Chloride 0.9% [Normal Saline] 100 ml IV Q24H 07/02/20 07:40 CULTURE URINE [RM] Routine 07/02/20 09:00 Hydroxychloroquine [Plaquenil] 200 mg PO DAILY Methotrexate 20 mg PO Smith@0900 Multivitamins,Therapeutic [Thera] 1 each PO DAILY 07/02/20 12:00 Calcium Carbonate [Tums] 1,000 mg PO DAILY@1200 Folic Acid 1 mg PO 1200 07/03/20 05:11 C-REACTIVE PROTEIN [CHEM] AM CBC WITH AUTO DIFF [HEME] AM COMPREHENSIVE METABOLIC PN,CMP [CHEM] AM LIPASE [CHEM] AM MAGNESIUM [CHEM] AM 07/03/20 06:00 Levothyroxine 75 mcg PO MoWeFr@0600 07/04/20 05:11 C-REACTIVE PROTEIN [CHEM] AM CBC WITH AUTO DIFF [HEME] AM COMPREHENSIVE METABOLIC PN,CMP [CHEM] AM LIPASE [CHEM] AM MAGNESIUM [CHEM] AM 07/05/20 05:11 C-REACTIVE PROTEIN [CHEM] AM CBC WITH AUTO DIFF [HEME] AM COMPREHENSIVE METABOLIC PN,CMP [CHEM] AM MAGNESIUM [CHEM] AM 07/06/20 05:11 C-REACTIVE PROTEIN [CHEM] AM CBC WITH AUTO DIFF [HEME] AM COMPREHENSIVE METABOLIC PN,CMP [CHEM] AM MAGNESIUM [CHEM] AM 07/07/20 05:11 C-REACTIVE PROTEIN [CHEM] AM CBC WITH AUTO DIFF [HEME] AM COMPREHENSIVE METABOLIC PN,CMP [CHEM] AM MAGNESIUM [CHEM] AM 07/08/20 05:11 C-REACTIVE PROTEIN [CHEM] AM CBC WITH AUTO DIFF [HEME] AM COMPREHENSIVE METABOLIC PN,CMP [CHEM] AM MAGNESIUM [CHEM] AM - Plan Plan:: This is a 64 yo white female with past medical hx/o Impaired Vision, HTN, Hx/o Pancreatitis, RA, Hypothyroidism, Osteopenia, Eczema, Anxiety and Obesity who presented to ED with complaints of waxing and waning epigastric pain that started last night after supper associated with nausea as well as vomiting and was diagnosed with acute pancreatitis. Assessment: Acute: Abdominal Pain UTI * 2/2 Acute pancreatitis * NPO except ice chips and oral meds * PRN pain medications and anti-emetic agents * Lipase is now down to 410 * Still has linger pain associated with nausea but w/o emesis * R/o ACS with EKG and serial troponin Q6H x3 * 1 gram Rocephin daily Pancreatitis with Lipase of 4400 * Carries a hx/o acute pancreatitis last year * Happened right after supper last night * Lipase is now 410 * LA is wnl; CRP is mildly elevated at 6.3-->now19.6 * NPO except ice chips * Lipid panel is pending * Abdominal/pelvis CT scan report confirm mild pancreatitis Leukocytosis, worse * WBC of 12.53-->now 22.75 * 2/2 acute pancreatitis * We will monitor Nausea/Vomiting, improved * 2/2 above * Still nauseous w/o vomiting * PRN anti-emetic agents Class I Obese * BMI of 31.6 * Dietary consult for weight management Resolved: Mild Hyponatremia and Hypochloremia, resolved * Na of 134-->now 136 and CL of 97-->[id number] * Likely from GI loss * She is currently hydrating * We will monitor Chronic: Impaired Vision, HTN, Hx/o Pancreatitis, RA, Hypothyroidism, Osteopenia, Eczema, Anxiety and Obesity Plan: Continue current treatment. She is still symptomatic so we will hold starting her diet. Scopolamine patch for N/V. IV antibiotic 1 gram Rocephin daily for UTI treatment. IV fluids for hydration. Hold home meds for now due to nausea. DVT/GI PPx: SCDs and PPI. Epigastric pain r/o ACS. Code status is full. 1033: EKG shows sinus rhythm with a HR of 60. Troponin is pending.
[2020-07-02] MEDS: Multivitamins,Therapeutic Tab PO SCH (09:54)
[2020-07-02] MEDS ORDERED: Scopolamine 1.5 MG Transdermal Patch TRDERM PRN (09:58)
[2020-07-02] MEDS: Promethazine 12.5 MG in Sodium Chloride 0.9% 50 ML IV PRN (10:04)
[2020-07-02] MEDS ORDERED: diphenhydrAMINE 50 MG/ML SDV IVPUSH ONE (11:58)
[2020-07-02] MEDS: Hydroxychloroquine 200 MG Tab PO SCH (12:16)
[2020-07-02] MEDS: Calcium Carbonate 500 MG Tab.Chew PO SCH (12:17)
[2020-07-02] MEDS: Prochlorperazine 10 MG/2 ML SDV IVPUSH PRN (12:17)
[2020-07-02] MEDS: Folic Acid 1 MG Tab PO SCH (12:17)
[2020-07-02] MEDS: Magnesium Oxide 400 MG Tab PO SCH (17:28)
[2020-07-02] MEDS: Citalopram 20 MG Tab PO SCH (21:00)
[2020-07-02] MEDS: Zolpidem 5 MG Tab PO PRN (21:01)
[2020-07-03] MEDS ORDERED: Levothyroxine 75 MCG Tab PO SCH (06:00)
[2020-07-03] MEDS: Acetaminophen/HYDROcodone 325-5 MG Tab PO PRN ×3 (06:47→21:37)
[2020-07-03] MEDS: Pantoprazole 40 MG Vial IVPUSH SCH (06:49)
--- NOTE | 2020-07-03 08:04 | PCM.PN ---
- General Info Date of Service: 07/03/20 Admission Dx/Problem (Free Text): Admission Diagnosis/Problem Admission Diagnosis/Problem Acute pancreatitis Subjective Update: In to see Netta. She reports she feels much better. Her nausea has resolved. She has been tolerating her clear liquid diet and this will be advanced to a full liquid diet, with plan on advancing if she tolerates this. She is quite edematous, likely from all the IV fluid. Denies any dyspnea at rest but states that she will notice some if she gets up and walks. Urine was sent for culture and this is pending. WBC has improved but CRP is worse today. Troponins were all negative and it is believed her epigastric pain is not related to an acute coronary event. Hopeful for discharge in next 24 to 48 hours pending advancement of diet. Dietitian will be in to see the patient today to discuss pancreatitis. Functional Status: Reports: Pain Controlled, Tolerating Diet, Ambulating, Urinating. Denies: New Symptoms - Review of Systems General: Reports: No Symptoms. Denies: Fever, Weakness, Fatigue, Malaise, Chills HEENT: Reports: No Symptoms. Denies: Headaches, Sore Throat Pulmonary: Reports: No Symptoms. Denies: Shortness of Breath, Pleuritic Chest Pain, Cough, Sputum, Wheezing Cardiovascular: Reports: Dyspnea on Exertion, Edema. Denies: Chest Pain, Palpitations Gastrointestinal: Reports: No Symptoms. Denies: Abdominal Pain, Constipation, Diarrhea, Nausea, Vomiting Genitourinary: Reports: No Symptoms. Denies: Pain Musculoskeletal: Reports: No Symptoms Skin: Reports: No Symptoms. Denies: Cyanosis Neurological: Reports: No Symptoms. Denies: Confusion, Dizziness, Headache, Numbness, Seizure, Syncope, Tingling, Difficulty Walking, Weakness, Gait Disturbance Psychiatric: Reports: No Symptoms - Patient Data Vitals - Most Recent: Last Vital Signs Temp 98.8 F 07/03/20 04:37 Pulse 68 07/03/20 04:37 Resp 20 07/03/20 04:37 BP 124/80 07/03/20 04:37 Pulse Ox 97 07/03/20 04:37 Weight - Most Recent: 182 lb 3.2 oz I&O - Last 24 Hours: Intake & Output 07/02/20 07/03/20 07/03/20 22:59 06:59 14:59 Intake Total 3228 450 Output Total 700 650 Balance 2528 -200 Lab Results Last 24 Hours: Laboratory Results - last 24 hr 07/02/20 07/02/20 07/02/20 Range/Units 09:57 09:57 16:01 WBC (3.98-10.04) K/mm3 RBC (3.98-5.22) M/mm3 Hgb (11.2-15.7) gm/dl Hct (34.1-44.9) % MCV (79.4-94.8) fl MCH (25.6-32.2) pg MCHC (32.2-35.5) g/dl RDW Std Deviation (36.4-46.3) fL Plt Count (182-369) K/mm3 MPV (9.4-12.3) fl Neut % (Auto) (34.0-71.1) % Lymph % (Auto) (19.3-51.7) % [place] % (Auto) (4.7-12.5) % Eos % (Auto) (0.7-5.8) Baso % (Auto) (0.1-1.2) % Neut # (Auto) (1.56-6.13) K/mm3 Lymph # (Auto) (1.18-3.74) K/mm3 [place] # (Auto) (0.24-0.36) K/mm3 Eos # (Auto) (0.04-0.36) K/mm3 Baso # (Auto) (0.01-0.08) K/mm3 Manual Slide Review Sodium (136-145) mEq/L Potassium (3.5-5.1) mEq/L Chloride (98-107) mEq/L Carbon Dioxide (21-32) mEq/L Anion Gap (5-15) BUN (7-18) mg/dL Creatinine (0.55-1.02) mg/dL Est Cr Clr Drug Dosing mL/min Estimated GFR (MDRD) (>60) mL/min BUN/Creatinine Ratio (14-18) Glucose (80-115) mg/dL Calcium (8.5-10.1) mg/dL Magnesium (1.8-2.4) mg/dl Total Bilirubin (0.2-1.0) mg/dL AST (15-37) U/L ALT (14-59) U/L Alkaline Phosphatase (46-116) U/L Troponin I < 0.017 < 0.017 (0.00-0.056) ng/mL C-Reactive Protein (<1.0) mg/dL Total Protein (6.4-8.2) g/dl Albumin (3.4-5.0) g/dl Globulin gm/dL Albumin/Globulin Ratio (1-2) Triglycerides 53 (<150) mg/dL Cholesterol 159 (<200) mg/dL LDL Cholesterol Direct 66 (<100) mg/dL HDL Cholesterol 77.0 H (40-59) mg/dL Lipase (73-393) U/L 07/02/20 07/03/20 07/03/20 Range/Units 21:43 06:13 06:13 WBC 18.38 H (3.98-10.04) K/mm3 RBC 2.96 L (3.98-5.22) M/mm3 Hgb 9.8 L (11.2-15.7) gm/dl Hct 30.5 L (34.1-44.9) % MCV 103.0 H (79.4-94.8) fl MCH 33.1 H (25.6-32.2) pg MCHC 32.1 L (32.2-35.5) g/dl RDW Std Deviation 54.1 H (36.4-46.3) fL Plt Count 267 (182-369) K/mm3 MPV 8.9 L (9.4-12.3) fl Neut % (Auto) 82.6 H (34.0-71.1) % Lymph % (Auto) 7.8 L (19.3-51.7) % [place] % (Auto) 9.0 (4.7-12.5) % Eos % (Auto) 0.2 L (0.7-5.8) Baso % (Auto) 0.1 (0.1-1.2) % Neut # (Auto) 15.20 H (1.56-6.13) K/mm3 Lymph # (Auto) 1.44 (1.18-3.74) K/mm3 [place] # (Auto) 1.65 H (0.24-0.36) K/mm3 Eos # (Auto) 0.03 L (0.04-0.36) K/mm3 Baso # (Auto) 0.01 (0.01-0.08) K/mm3 Manual Slide Review Abnormal smear Sodium 140 (136-145) mEq/L Potassium 3.8 (3.5-5.1) mEq/L Chloride 103 (98-107) mEq/L Carbon Dioxide 24 (21-32) mEq/L Anion Gap 16.8 H (5-15) BUN 10 (7-18) mg/dL Creatinine 0.7 (0.55-1.02) mg/dL Est Cr Clr Drug Dosing 64.82 mL/min Estimated GFR (MDRD) > 60 (>60) mL/min BUN/Creatinine Ratio 14.3 (14-18) Glucose 87 (80-115) mg/dL Calcium 7.6 L (8.5-10.1) mg/dL Magnesium 2.2 (1.8-2.4) mg/dl Total Bilirubin 0.5 (0.2-1.0) mg/dL AST 19 (15-37) U/L ALT 15 (14-59) U/L Alkaline Phosphatase 50 (46-116) U/L Troponin I 0.019 (0.00-0.056) ng/mL C-Reactive Protein 21.3 H* (<1.0) mg/dL Total Protein 6.5 (6.4-8.2) g/dl Albumin 2.6 L (3.4-5.0) g/dl Globulin 3.9 gm/dL Albumin/Globulin Ratio 0.7 L (1-2) Triglycerides (<150) mg/dL Cholesterol (<200) mg/dL LDL Cholesterol Direct (<100) mg/dL HDL Cholesterol (40-59) mg/dL Lipase 179 (73-393) U/L Med Orders - Current: Current Medications Acetaminophen (Tylenol) 650 mg PO Q4H PRN PRN Reason: Pain (Mild 1-3)/fever Acetaminophen (Tylenol) 650 mg PO Q4HR PRN PRN Reason: Pain Hydrocodone Bitart/Acetaminophen ([place] 325-5 Mg) 1 tab PO Q4H PRN PRN Reason: Pain (moderate 4-6) Last Admin: 07/03/20 06:47 Dose: 1 tab Documented by: Albuterol/Ipratropium (Duoneb 3.0-0.5 Mg/3 Ml) 3 ml NEB Q4H PRN PRN Reason: Shortness Of Breath/wheezing Calcium Carbonate/Glycine (Tums) 1,000 mg PO DAILY@1200 [facility] Last Admin: 07/02/20 12:17 Dose: Not Given Documented by: Citalopram Hydrobromide (Celexa) 20 mg PO BEDTIME [facility] Last Admin: 07/02/20 21:00 Dose: 20 mg Documented by: Folic Acid (Folic Acid) 1 mg PO 1200 [facility] Last Admin: 07/02/20 12:17 Dose: Not Given Documented by: Hydromorphone HCl (Dilaudid) 0.5 mg IVPUSH Q1H PRN PRN Reason: Pain Last Admin: 07/01/20 21:09 Dose: 0.5 mg Documented by: Hydroxychloroquine Sulfate (Plaquenil) 200 mg PO DAILY [facility] Last Admin: 07/02/20 12:16 Dose: 200 mg Documented by: Promethazine HCl 12.5 mg/ (Sodium Chloride) 50.5 mls @ 100 mls/hr IV Q6H PRN PRN Reason: Nausea/Vomiting Last Admin: 07/02/20 10:04 Dose: 100 mls/hr Documented by: Ceftriaxone Sodium 1 gm/ (Sodium Chloride) 100 mls @ 200 mls/hr IV Q24H [facility] Ibuprofen (Motrin) 600 mg PO Q6H PRN PRN Reason: Pain (moderate 4-6) Ibuprofen (Motrin) 400 mg PO Q6HR PRN PRN Reason: Pain Levothyroxine Sodium (Levothyroxine) 75 mcg PO MoWeFr@0600 [facility] Last Admin: 07/03/20 06:47 Dose: 75 mcg Documented by: Levothyroxine Sodium (Synthroid) 88 mcg PO SuTuThSa@0600 [facility] Last Admin: 07/02/20 06:51 Dose: 88 mcg Documented by: Magnesium Oxide (Magnesium Oxide) 400 mg PO DAILY@1800 [facility] Last Admin: 07/02/20 17:28 Dose: 400 mg Documented by: Methotrexate (Methotrexate) 20 mg PO Smith@0900 [facility] Last Admin: 07/02/20 15:53 Dose: 20 mg Documented by: Multivitamins (Thera) 1 each PO DAILY [facility] Last Admin: 07/02/20 09:54 Dose: Not Given Documented by: Ondansetron HCl (Zofran) 4 mg IVPUSH Q6H PRN PRN Reason: Nausea/Vomiting Last Admin: 07/02/20 15:53 Dose: 4 mg Documented by: Pantoprazole Sodium (Protonix Iv) 40 mg IVPUSH Q12H [facility] Last Admin: 07/03/20 06:49 Dose: 40 mg Documented by: Polyethylene Glycol (Miralax) 17 gm PO DAILY PRN PRN Reason: Constipation Prochlorperazine Edisylate (Compazine) 10 mg IVPUSH Q6H PRN PRN Reason: Nausea/Vomiting Last Admin: 07/02/20 12:17 Dose: 10 mg Documented by: Scopolamine (Transderm-Scop) 1.5 mg TRDERM Q72H PRN PRN Reason: N/V Last Admin: 07/02/20 10:03 Dose: 1.5 mg Documented by: Senna/Docusate Sodium (Senna Plus) 1 tab PO BID PRN PRN Reason: Constipation Zolpidem Tartrate (Ambien) 5 mg PO BEDTIME PRN PRN Reason: Sleep Last Admin: 07/02/20 21:01 Dose: 5 mg Documented by: Discontinued Medications Diphenhydramine HCl (Benadryl) 25 mg IVPUSH ONETIME ONE Stop: 07/02/20 11:59 Last Admin: 07/02/20 12:17 Dose: 25 mg Documented by: Hydromorphone HCl (Dilaudid) 0.5 mg IVPUSH ONETIME STA Stop: 06/30/20 21:06 Last Admin: 06/30/20 21:19 Dose: 0.5 mg Documented by: Hydromorphone HCl (Dilaudid) 0.5 mg IVPUSH ONETIME ONE Stop: 07/01/20 00:50 Last Admin: 07/01/20 00:56 Dose: 0.5 mg Documented by: Sodium Chloride (Normal Saline) 1,000 mls @ 150 mls/hr IV ASDIRECTED [facility] Last Admin: 07/02/20 17:29 Dose: 150 mls/hr Documented by: Sodium Chloride (Normal Saline) 100 mls @ 60 drops/min IV ASDIRECTED [facility] Last Admin: 07/01/20 00:10 Dose: 60 drops/min Documented by: Ceftriaxone Sodium 1 gm/ (Sodium Chloride) 100 mls @ 200 mls/hr IV Q24H [facility] Ceftriaxone Sodium 1 gm/ (Sodium Chloride) 100 mls @ 200 mls/hr IV Q24H [facility] Last Admin: 07/02/20 09:31 Dose: 200 mls/hr Documented by: Iopamidol (Isovue-300 (61%)) 100 ml IVPUSH ONETIME ONE Stop: 07/01/20 00:09 Last Admin: 07/01/20 00:10 Dose: 100 ml Documented by: Methotrexate (Methotrexate) 20 mg PO Sa@0900 [facility] Last Admin: 07/01/20 16:53 Dose: Not Given Documented by: Non-Formulary Medication (Simponi Iv Infusion) 160.2 mg IV ASDIRECTED [facility] Ondansetron HCl (Zofran) 4 mg IVPUSH ONETIME ONE Stop: 06/30/20 21:06 Last Admin: 06/30/20 21:19 Dose: 4 mg Documented by: Ondansetron HCl (Zofran) 4 mg IVPUSH ONETIME ONE Stop: 07/01/20 00:35 Last Admin: 07/01/20 00:45 Dose: 4 mg Documented by: - Exam Quality Assessment: DVT Prophylaxis General: Alert, Oriented, Cooperative, No Acute Distress HEENT: Pupils Equal, Pupils Reactive, Mucous Membr. Moist/[place] Neck: Supple, Trachea Midline Lungs: Clear to Auscultation, Normal Respiratory Effort Cardiovascular: Regular Rate, Regular Rhythm GI/Abdominal Exam: Normal Bowel Sounds, Soft, Non-Tender, No Distention (Female) Exam: Deferred Back Exam: Normal Inspection, Full Range of Motion Extremities: Normal Inspection, Normal Range of Motion, Normal Capillary Refill, Pedal Edema Skin: Warm, Dry, Intact Neurological: No New Focal Deficit Psy/Mental Status: Alert, Normal Affect, Normal Mood Sepsis Event Note - Evaluation Sepsis Screening Result: No Definite Risk - Focused Exam Vital Signs: Vital Signs Temp Pulse Resp BP Pulse Ox 07/03/20 04:37 98.8 F 68 20 124/80 97 07/03/20 00:17 98.6 F 66 20 115/96 H 93 L 07/02/20 20:15 94 L - Problem List & Annotations (1) UTI (urinary tract infection) SNOMED Code(s): 01050700 Code(s): N39.0 - URINARY TRACT INFECTION, SITE NOT SPECIFIED Status: Acute Priority: High Current Visit: Yes Qualifiers: Urinary tract infection type: acute cystitis Hematuria presence: with hematuria Qualified Code(s): N30.01 - Acute cystitis with hematuria (2) Nausea & vomiting SNOMED Code(s): 02186130 Code(s): R11.2 - NAUSEA WITH VOMITING, UNSPECIFIED Status: Resolved Priority: High Current Visit: Yes Qualifiers: Vomiting type: unspecified Vomiting Intractability: unspecified Qualified Code(s): R11.2 - Nausea with vomiting, unspecified (3) Obesity (BMI 30.0-34.9) SNOMED Code(s): 883239749218636 Code(s): E66.9 - OBESITY, UNSPECIFIED Status: Chronic Priority: Medium Current Visit: Yes (4) Hyponatremia SNOMED Code(s): 61888676 Code(s): E87.1 - HYPO-OSMOLALITY AND HYPONATREMIA Status: Resolved Priority: High Current Visit: Yes (5) Hypochloremia SNOMED Code(s): 34869893 Code(s): E87.8 - OTH DISORDERS OF ELECTROLYTE AND FLUID BALANCE, NEC Status: Resolved Priority: High Current Visit: Yes (6) Acute pancreatitis SNOMED Code(s): 342161472 Code(s): K85.90 - ACUTE PANCREATITIS WITHOUT NECROSIS OR INFECTION, UNSP Status: Acute Priority: High Current Visit: Yes Qualifiers: Pancreatitis type: idiopathic Acute pancreatitis complication: no infection or necrosis Qualified Code(s): K85.00 - Idiopathic acute pancreatitis without necrosis or infection (7) Epigastric pain SNOMED Code(s): 29970287 Code(s): R10.13 - EPIGASTRIC PAIN Status: Resolved Priority: High Current Visit: Yes - Problem List Review Problem List Initiated/Reviewed/Updated: Yes - Plan Plan:: This is a 64 yo white female with past medical hx/o Impaired Vision, HTN, Hx/o Pancreatitis, RA, Hypothyroidism, Osteopenia, Eczema, Anxiety and Obesity who presented to ED with complaints of waxing and waning epigastric pain that started last night after supper associated with nausea as well as vomiting and was diagnosed with acute pancreatitis. Assessment: Acute: Abdominal Pain, resolved UTI * 2/2 Acute pancreatitis * PRN pain medications and anti-emetic agents * Lipase is now down to 179 * Nausea resolved * R/o ACS with EKG and serial troponin Q6H x3 -> all negative * 1 gram Rocephin daily Pancreatitis with Lipase of 4400 * Carries a hx/o acute pancreatitis last year * Happened right after supper last night * Lipase is now 179 * LA is wnl; CRP is mildly elevated at 6.3-->now19.6-->21.3 * Advance diet to Full liquids and monitor * Lipid panel is negative * Abdominal/pelvis CT scan report confirm mild pancreatitis Leukocytosis, improved * WBC of 12.53-->now 22.75-->18.38 * 2/2 acute pancreatitis * We will monitor Class I Obese * BMI of 31.6 * Dietary consult for weight management Resolved: Mild Hyponatremia and Hypochloremia, resolved * Na of 134-->now 136 and CL of 97-->rus076 * Likely from GI loss * She is currently hydrating * We will monitor Nausea/Vomiting, resolved * 2/2 above * Still nauseous w/o vomiting * PRN anti-emetic agents Chronic: Impaired Vision, HTN, Hx/o Pancreatitis, RA, Hypothyroidism, Osteopenia, Eczema, Anxiety and Obesity Plan: Continue current treatment. She is feeling better so advance diet as tolerated. Scopolamine patch for N/V. IV antibiotic 1 gram Rocephin daily for UTI treatment. IV fluids for hydration. Resume home meds. DVT/GI PPx: SCDs and PPI. Code status is full.
[2020-07-03] MEDS: cefTRIAXone 1 GM in Sodium Chloride 0.9% 100 ML IV SCH (09:54)
[2020-07-03] MEDS: Hydroxychloroquine 200 MG Tab PO SCH (09:54)
[2020-07-03] MEDS: Multivitamins,Therapeutic Tab PO SCH (09:54)
[2020-07-03] MEDS: Ondansetron 4 MG/2 ML SDV IVPUSH PRN (11:32)
[2020-07-03] MEDS: Calcium Carbonate 500 MG Tab.Chew PO SCH (12:52)
[2020-07-03] MEDS: Folic Acid 1 MG Tab PO SCH (12:52)
[2020-07-03] MEDS: Prochlorperazine 10 MG/2 ML SDV IVPUSH PRN (16:12)
[2020-07-03] MEDS: Magnesium Oxide 400 MG Tab PO SCH (18:18)
[2020-07-03] MEDS: Pantoprazole 40 MG Tab.CR PO SCH (18:18)
[2020-07-03] MEDS: Zolpidem 5 MG Tab PO PRN (21:37)
[2020-07-03] MEDS: Citalopram 20 MG Tab PO SCH (21:38)
[2020-07-04] MEDS: Pantoprazole 40 MG Tab.CR PO SCH (05:39)
[2020-07-04] MEDS: Levothyroxine 88 MCG Tab PO SCH (05:39)
--- NOTE | 2020-07-04 07:29 | PCM.PN ---
- General Info Date of Service: 07/04/20 Admission Dx/Problem (Free Text): Admission Diagnosis/Problem Admission Diagnosis/Problem Acute pancreatitis - Patient Data Vitals - Most Recent: Last Vital Signs Temp 98.2 F 07/04/20 03:44 Pulse 64 07/04/20 03:44 Resp 16 07/04/20 03:44 BP 125/86 07/04/20 03:44 Pulse Ox 92 L 07/04/20 03:44 Weight - Most Recent: 180 lb 6.4 oz I&O - Last 24 Hours: Intake & Output 07/03/20 07/04/20 07/04/20 22:59 06:59 14:59 Intake Total 1500 1000 Output Total 1350 1675 Balance 150 -675 Lab Results Last 24 Hours: Laboratory Results - last 24 hr 07/04/20 07/04/20 Range/Units 06:20 06:20 WBC 11.49 H (3.98-10.04) K/mm3 RBC 2.89 L (3.98-5.22) M/mm3 Hgb 9.5 L (11.2-15.7) gm/dl Hct 29.5 L (34.1-44.9) % MCV 102.1 H (79.4-94.8) fl MCH 32.9 H (25.6-32.2) pg MCHC 32.2 (32.2-35.5) g/dl RDW Std Deviation 51.7 H (36.4-46.3) fL Plt Count 326 (182-369) K/mm3 MPV 8.6 L (9.4-12.3) fl Neut % (Auto) 70.5 (34.0-71.1) % Lymph % (Auto) 18.0 L (19.3-51.7) % Banner % (Auto) 9.4 (4.7-12.5) % Eos % (Auto) 1.5 (0.7-5.8) Baso % (Auto) 0.3 (0.1-1.2) % Neut # (Auto) 8.11 H (1.56-6.13) K/mm3 Lymph # (Auto) 2.07 (1.18-3.74) K/mm3 Banner # (Auto) 1.08 H (0.24-0.36) K/mm3 Eos # (Auto) 0.17 (0.04-0.36) K/mm3 Baso # (Auto) 0.03 (0.01-0.08) K/mm3 Sodium 138 (136-145) mEq/L Potassium 3.4 L (3.5-5.1) mEq/L Chloride 104 (98-107) mEq/L Carbon Dioxide 24 (21-32) mEq/L Anion Gap 13.4 (5-15) BUN 6 L (7-18) mg/dL Creatinine 0.7 (0.55-1.02) mg/dL Est Cr Clr Drug Dosing 64.82 mL/min Estimated GFR (MDRD) > 60 (>60) mL/min BUN/Creatinine Ratio 8.6 L (14-18) Glucose 84 (80-115) mg/dL Calcium 7.9 L (8.5-10.1) mg/dL Magnesium 2.0 (1.8-2.4) mg/dl Total Bilirubin 0.4 (0.2-1.0) mg/dL AST 20 (15-37) U/L ALT 13 L (14-59) U/L Alkaline Phosphatase 51 (46-116) U/L C-Reactive Protein 11.4 H* (<1.0) mg/dL Total Protein 6.4 (6.4-8.2) g/dl Albumin 2.6 L (3.4-5.0) g/dl Globulin 3.8 gm/dL Albumin/Globulin Ratio 0.7 L (1-2) Med Orders - Current: Current Medications Acetaminophen (Tylenol) 650 mg PO Q4H PRN PRN Reason: Pain (Mild 1-3)/fever Acetaminophen (Tylenol) 650 mg PO Q4HR PRN PRN Reason: Pain Hydrocodone Bitart/Acetaminophen (Ronda 325-5 Mg) 1 tab PO Q4H PRN PRN Reason: Pain (moderate 4-6) Last Admin: 07/03/20 21:37 Dose: 1 tab Documented by: Albuterol/Ipratropium (Duoneb 3.0-0.5 Mg/3 Ml) 3 ml NEB Q4H PRN PRN Reason: Shortness Of Breath/wheezing Calcium Carbonate/Glycine (Tums) 1,000 mg PO DAILY@1200 [facility] Last Admin: 07/03/20 12:52 Dose: 1,000 mg Documented by: Citalopram Hydrobromide (Celexa) 20 mg PO BEDTIME [facility] Last Admin: 07/03/20 21:38 Dose: 20 mg Documented by: Folic Acid (Folic Acid) 1 mg PO 1200 [facility] Last Admin: 07/03/20 12:52 Dose: 1 mg Documented by: Hydromorphone HCl (Dilaudid) 0.5 mg IVPUSH Q1H PRN PRN Reason: Pain Last Admin: 07/01/20 21:09 Dose: 0.5 mg Documented by: Hydroxychloroquine Sulfate (Plaquenil) 200 mg PO DAILY [facility] Last Admin: 07/03/20 09:54 Dose: 200 mg Documented by: Promethazine HCl 12.5 mg/ (Sodium Chloride) 50.5 mls @ 100 mls/hr IV Q6H PRN PRN Reason: Nausea/Vomiting Last Admin: 07/02/20 10:04 Dose: 100 mls/hr Documented by: Ceftriaxone Sodium 1 gm/ (Sodium Chloride) 100 mls @ 200 mls/hr IV Q24H [facility] Last Admin: 07/03/20 09:54 Dose: 200 mls/hr Documented by: Ibuprofen (Motrin) 400 mg PO Q6HR PRN PRN Reason: Pain Levothyroxine Sodium (Levothyroxine) 75 mcg PO MoWeFr@0600 [facility] Last Admin: 07/03/20 06:47 Dose: 75 mcg Documented by: Levothyroxine Sodium (Synthroid) 88 mcg PO SuTuThSa@0600 [facility] Last Admin: 07/04/20 05:39 Dose: 88 mcg Documented by: Magnesium Oxide (Magnesium Oxide) 400 mg PO DAILY@1800 [facility] Last Admin: 07/03/20 18:18 Dose: 400 mg Documented by: Methotrexate (Methotrexate) 20 mg PO Smith@0900 [facility] Last Admin: 07/02/20 15:53 Dose: 20 mg Documented by: Miscellaneous Information (Remove Patch) 1 ea TRDERM Q72H [facility] Miscellaneous Information (Remove Patch) 0 ea TRDERM DAILY [facility] Multivitamins (Thera) 1 each PO DAILY [facility] Last Admin: 07/03/20 09:54 Dose: 1 each Documented by: Nicotine (Habitrol) 21 mg TRDERM DAILY [facility] Ondansetron HCl (Zofran) 4 mg IVPUSH Q6H PRN PRN Reason: Nausea/Vomiting Last Admin: 07/03/20 11:32 Dose: 4 mg Documented by: Pantoprazole Sodium (Protonix) 40 mg PO Q12H [facility] Last Admin: 07/04/20 05:39 Dose: 40 mg Documented by: Polyethylene Glycol (Miralax) 17 gm PO DAILY PRN PRN Reason: Constipation Prochlorperazine Edisylate (Compazine) 10 mg IVPUSH Q6H PRN PRN Reason: Nausea/Vomiting Last Admin: 07/03/20 16:12 Dose: 10 mg Documented by: Scopolamine (Transderm-Scop) 1.5 mg TRDERM Q72H PRN PRN Reason: N/V Last Admin: 07/02/20 10:03 Dose: 1.5 mg Documented by: Senna/Docusate Sodium (Senna Plus) 1 tab PO BID PRN PRN Reason: Constipation Zolpidem Tartrate (Ambien) 5 mg PO BEDTIME PRN PRN Reason: Sleep Last Admin: 07/03/20 21:37 Dose: 5 mg Documented by: Discontinued Medications Diphenhydramine HCl (Benadryl) 25 mg IVPUSH ONETIME ONE Stop: 07/02/20 11:59 Last Admin: 07/02/20 12:17 Dose: 25 mg Documented by: Hydromorphone HCl (Dilaudid) 0.5 mg IVPUSH ONETIME STA Stop: 06/30/20 21:06 Last Admin: 06/30/20 21:19 Dose: 0.5 mg Documented by: Hydromorphone HCl (Dilaudid) 0.5 mg IVPUSH ONETIME ONE Stop: 07/01/20 00:50 Last Admin: 07/01/20 00:56 Dose: 0.5 mg Documented by: Sodium Chloride (Normal Saline) 1,000 mls @ 150 mls/hr IV ASDIRECTED [facility] Last Admin: 07/02/20 17:29 Dose: 150 mls/hr Documented by: Sodium Chloride (Normal Saline) 100 mls @ 60 drops/min IV ASDIRECTED [facility] Last Admin: 07/01/20 00:10 Dose: 60 drops/min Documented by: Ceftriaxone Sodium 1 gm/ (Sodium Chloride) 100 mls @ 200 mls/hr IV Q24H [facility] Ceftriaxone Sodium 1 gm/ (Sodium Chloride) 100 mls @ 200 mls/hr IV Q24H [facility] Last Admin: 07/02/20 09:31 Dose: 200 mls/hr Documented by: Ibuprofen (Motrin) 600 mg PO Q6H PRN PRN Reason: Pain (moderate 4-6) Iopamidol (Isovue-300 (61%)) 100 ml IVPUSH ONETIME ONE Stop: 07/01/20 00:09 Last Admin: 07/01/20 00:10 Dose: 100 ml Documented by: Methotrexate (Methotrexate) 20 mg PO Sa@0900 [facility] Last Admin: 07/01/20 16:53 Dose: Not Given Documented by: Non-Formulary Medication (Simponi Iv Infusion) 160.2 mg IV ASDIRECTED [facility] Ondansetron HCl (Zofran) 4 mg IVPUSH ONETIME ONE Stop: 06/30/20 21:06 Last Admin: 06/30/20 21:19 Dose: 4 mg Documented by: Ondansetron HCl (Zofran) 4 mg IVPUSH ONETIME ONE Stop: 07/01/20 00:35 Last Admin: 07/01/20 00:45 Dose: 4 mg Documented by: Pantoprazole Sodium (Protonix Iv) 40 mg IVPUSH Q12H [facility] Last Admin: 07/03/20 06:49 Dose: 40 mg Documented by: Sepsis Event Note - Evaluation Sepsis Screening Result: No Definite Risk - Focused Exam Vital Signs: Vital Signs Temp Pulse Resp BP Pulse Ox 07/04/20 03:44 98.2 F 64 16 125/86 92 L 07/03/20 23:20 98.8 F 62 16 145/92 H 91 L 07/03/20 19:31 99.0 F 53 L 145/58 H 93 L - Problem List & Annotations (1) UTI (urinary tract infection) SNOMED Code(s): 41408572 Code(s): N39.0 - URINARY TRACT INFECTION, SITE NOT SPECIFIED Status: Acute Priority: High Current Visit: Yes Qualifiers: Urinary tract infection type: acute cystitis Hematuria presence: with hematuria Qualified Code(s): N30.01 - Acute cystitis with hematuria (2) Nausea & vomiting SNOMED Code(s): 57335877 Code(s): R11.2 - NAUSEA WITH VOMITING, UNSPECIFIED Status: Resolved Priority: High Current Visit: Yes Qualifiers: Vomiting type: unspecified Vomiting Intractability: unspecified Qualified Code(s): R11.2 - Nausea with vomiting, unspecified (3) Obesity (BMI 30.0-34.9) SNOMED Code(s): 695606935291246 Code(s): E66.9 - OBESITY, UNSPECIFIED Status: Chronic Priority: Medium Current Visit: Yes (4) Hyponatremia SNOMED Code(s): 48226970 Code(s): E87.1 - HYPO-OSMOLALITY AND HYPONATREMIA Status: Resolved Priority: High Current Visit: Yes (5) Hypochloremia SNOMED Code(s): 73787579 Code(s): E87.8 - OTH DISORDERS OF ELECTROLYTE AND FLUID BALANCE, NEC Status: Resolved Priority: High Current Visit: Yes (6) Acute pancreatitis SNOMED Code(s): 823643871 Code(s): K85.90 - ACUTE PANCREATITIS WITHOUT NECROSIS OR INFECTION, UNSP Status: Acute Priority: High Current Visit: Yes Qualifiers: Pancreatitis type: idiopathic Acute pancreatitis complication: no infection or necrosis Qualified Code(s): K85.00 - Idiopathic acute pancreatitis without necrosis or infection (7) Epigastric pain SNOMED Code(s): 68487001 Code(s): R10.13 - EPIGASTRIC PAIN Status: Resolved Priority: High Current Visit: Yes - My Orders Last 24 Hours: My Active Orders 07/03/20 Lunch Full Liquid Diet [DIET] 07/03/20 18:00 Pantoprazole [ProTONIX] 40 mg PO Q12H - Plan Plan:: This is a 64 yo white female with past medical hx/o Impaired Vision, HTN, Hx/o Pancreatitis, RA, Hypothyroidism, Osteopenia, Eczema, Anxiety and Obesity who presented to ED with complaints of waxing and waning epigastric pain that started last night after supper associated with nausea as well as vomiting and was diagnosed with acute pancreatitis. Assessment: Acute: Abdominal Pain, resolved UTI * 2/2 Acute pancreatitis * PRN pain medications and anti-emetic agents * Lipase is now down to 179 * Nausea resolved * R/o ACS with EKG and serial troponin Q6H x3 -> all negative * 1 gram Rocephin daily Pancreatitis with Lipase of 4400 * Carries a hx/o acute pancreatitis last year * Happened right after supper last night * Lipase is now 179 * LA is wnl; CRP is mildly elevated at 6.3-->now19.6-->21.3 * Advance diet to Full liquids and monitor * Lipid panel is negative * Abdominal/pelvis CT scan report confirm mild pancreatitis Leukocytosis, improved * WBC of 12.53-->now 22.75-->18.38 * 2/2 acute pancreatitis * We will monitor Class I Obese * BMI of 31.6 * Dietary consult for weight management Resolved: Mild Hyponatremia and Hypochloremia, resolved * Na of 134-->now 136 and CL of 97-->[id number] * Likely from GI loss * She is currently hydrating * We will monitor Nausea/Vomiting, resolved * 2/2 above * Still nauseous w/o vomiting * PRN anti-emetic agents Chronic: Impaired Vision, HTN, Hx/o Pancreatitis, RA, Hypothyroidism, Osteopenia, Eczema, Anxiety and Obesity Plan: Continue current treatment. She is feeling better so advance diet as tolerated. Scopolamine patch for N/V. IV antibiotic 1 gram Rocephin daily for UTI treatment. IV fluids for hydration. Resume home meds. DVT/GI PPx: SCDs and PPI. Code status is full.
[2020-07-04] MEDS ORDERED: Nicotine 21 MG/24 Hr Patch TRDERM SCH (09:00)
[2020-07-04] MEDS ORDERED: Potassium Chloride 20 MEQ Tab.ER PO SCH (09:00)
[2020-07-04] MEDS: cefTRIAXone 1 GM in Sodium Chloride 0.9% 100 ML IV SCH (09:47)
[2020-07-04] MEDS: Multivitamins,Therapeutic Tab PO SCH (09:49)
[2020-07-04] MEDS: Hydroxychloroquine 200 MG Tab PO SCH (09:49)
[2020-07-04 12:03] VITALS: BP 114/51; PULSE 55
--- NOTE | 2020-07-04 12:28 | PCM.DCSUM1 ---
Discharge Summary - Hospital Course HPI Initial Comments: This is a 64 yo white female with past medical hx/o Impaired Vision, HTN, Hx/o Pancreatitis, RA, Hypothyroidism, Osteopenia, Eczema, Anxiety and Obesity who presented to ED with complaints of waxing and waning epigastric pain that started last night after supper associated with nausea as well as vomiting and was diagnosed with acute pancreatitis. She carries a hx/o acute pancreatitis diagnosed on 01/17/2020. She has had ERCP before and her GB has been removed. Before she came to ED last night, she took some Ibuprofen but w/o relief of her belly pain. She denies having fever or chills. No signs of URI. She has no complaints. Patient was admitted overnight by ED provider to [facility] floor. She now feels better but still has lingering abdominal pain and nausea w/o emesis. Her initial work up last revealed a CBC remarkable for WBC of 12.53, RBC of 3.38 , MCV of 100.9, MCH of 33.4, RDW of 51.1, MPV of 8.5, Neutrophils of 71%, Lymphocytes of 16%, and ESR of 44. Her initial chemistry was significant for NA of 134, CL of 97, CRP of 6.3, and Lipase of 4400. Her LA was normal. Her COVID- 219 rapid test was negative. Abdominal U/S report read as nothing acute see. Her abdominal/pelvis CT scan report rad as very slight haziness around the pancreatic head and neck , difficult to exclude very early pancreatitis. Diagnosis: Stroke: No - Discharge Data Discharge Date: 07/04/20 (Admit date: 06/30/20) Discharge Disposition: Home, Self-Care 01 Condition: Good - Referral to Home Health Primary Care Physician: Linda Sanchez MD - Discharge Diagnosis/Problem(s) (1) Nausea & vomiting SNOMED Code(s): 05109340 ICD Code: R11.2 - NAUSEA WITH VOMITING, UNSPECIFIED Status: Resolved Priority: High Current Visit: Yes Qualifiers: Vomiting type: unspecified Vomiting Intractability: unspecified Qualified Code(s): R11.2 - Nausea with vomiting, unspecified (2) Obesity (BMI 30.0-34.9) SNOMED Code(s): 737564659011789 ICD Code: E66.9 - OBESITY, UNSPECIFIED Status: Chronic Priority: Medium Current Visit: Yes (3) Hyponatremia SNOMED Code(s): 86250926 ICD Code: E87.1 - HYPO-OSMOLALITY AND HYPONATREMIA Status: Resolved Priority: High Current Visit: Yes (4) Hypochloremia SNOMED Code(s): 73790582 ICD Code: E87.8 - OTH DISORDERS OF ELECTROLYTE AND FLUID BALANCE, NEC Status: Resolved Priority: High Current Visit: Yes (5) Acute pancreatitis SNOMED Code(s): 818058438 ICD Code: K85.90 - ACUTE PANCREATITIS WITHOUT NECROSIS OR INFECTION, UNSP Status: Acute Priority: High Current Visit: Yes Qualifiers: Pancreatitis type: idiopathic Acute pancreatitis complication: no infection or necrosis Qualified Code(s): K85.00 - Idiopathic acute pancreatitis without necrosis or infection (6) Epigastric pain SNOMED Code(s): 61504370 ICD Code: R10.13 - EPIGASTRIC PAIN Status: Resolved Priority: High Current Visit: Yes (7) Hypokalemia SNOMED Code(s): 11334187 ICD Code: E87.6 - HYPOKALEMIA Status: Acute Priority: High Current Visit: Yes - Patient Summary/Data Consults: Consultations 07/01/20 07:38 Consult to Case Management/Car Retarder Operator [CONS] Routine Consult to Tile Shader [CONS] Routine OT Evaluation and Treatment [CONS] Routine PT Evaluation and Treatment [CONS] Routine Labs Pending at D/C: None Recommended Follow-up Testing/Procedures: Follow-up with primary care provider within 5-7 days of discharge, sooner if needed. Recommend follow-up with GI after discharge. Hospital Course: Netta was admitted to the hospital floor due to abdominal pain secondary to pancreatitis. She reports she has had pancreatitis in the past and is very familiar with it. She reports pain started after supper. Initial ultrasound of the abdomen in the ED showed nothing acute and CT scan of the abdomen and pelvis showed haziness around the pancreas with acute early pancreatitis versus chronic inflammatory changes noted. Lipase was initially 4400 and this did trend downward with treatment to 179. Lactic acid was within normal limits and CRP did initially increase from 6.[address] up to 21.3. It was down to 11.4 prior to discharge. She was noted to have a mild leukocytosis of 12.53 on admission and this did trend upward to 22.75. Prior to discharge she was 11.49. UA was obtained and was suggestive of a UTI so she was started on 1 g of Rocephin daily. She received 2 days of treatment before urine culture returned showing contaminants. Lipid panel was obtained and was within normal limits. She is noted to be obese with a BMI of 31.6 and our dietitian did visit with her about weight management as well as pancreatic diet. She was initially complaining of nausea and vomiting and this did improve and ultimately resolved throughout her stay. Sodium was low on admission of 134 and this also improved. Diet was advanced without problems. Unfortunately no cause of her pancreatitis was able to be identified. She has been seeing GI in the past and it was recommended she follow-up with them. Recommend follow-up with PCP within 5 to 7 days of discharge, sooner if needed. Recommend repeat CBC, CMP, magnesium at that visit. She was discharged home today. She was advised to avoid fatty and greasy food and to be cautious with her diet. She was advised to return to the emergency room or contact her primary care provider should symptoms return or worsen. - Patient Instructions Diet: Usual Diet as Tolerated Activity: As Tolerated Driving: Do Not Drive (today) Showering/Bathing: May Shower Notify Provider of: Fever, Increased Pain, Nausea and/or Vomiting Other/Special Instructions: Follow-up with primary care provider within 5-7 days of discharge, sooner if needed. . Recommend follow-up with GI regarding your continued episodes of pancreatitis. Go easy with your diet. Avoid fatty and greasy foods. Should symptoms return or worsen contact your primary care provider or return to the Emergency Department. - Discharge Plan *PRESCRIPTION DRUG MONITORING PROGRAM REVIEWED*: Not Applicable *COPY OF PRESCRIPTION DRUG MONITORING REPORT IN PATIENT ROSI: Not Applicable Home Medications: Home Meds Fish Oil/[place]-3 Fatty Acids [Fish Oil 1,000 MG] 1 tab PO 1800 08/12/17 [History] Multivitamin [Multivitamins] 1 tab PO DAILY 08/12/17 [History] Hydroxychloroquine Sulfate [Plaquenil] 200 mg PO DAILY 10/15/18 [History] Folic Acid 1 mg PO 1200 01/17/20 [History] Acetaminophen [Tylenol] 650 mg PO Q4HR PRN 01/18/20 [History] Levothyroxine 75 mg PO MOWEFR 06/30/20 [History] Levothyroxine [Synthroid] 88 mg PO SUTUTHSA 06/30/20 [History] Simponi Iv Infusion 160.2 mg IV ASDIRECTED 06/30/20 [History] Calcium Carbonate [Calcium] 1,000 mg PO 1200 07/01/20 [History] Citalopram [Citalopram HBr] 20 mg PO BEDTIME 07/01/20 [History] Gabapentin [Neurontin] 600 mg PO BEDTIME 07/01/20 [History] Glucosam/Chondr/Collagn/Hyalur [Glucosamine & Chondroitin Cap] 1 cap PO 1800 07/01/20 [History] Ibuprofen [Ibu] 400 mg PO Q6HR PRN 07/01/20 [History] Magnesium Oxide [Magnesium] 400 mg PO 1800 07/01/20 [History] Methotrexate 20 mg PO SA 07/01/20 [History] Omeprazole Magnesium 20 mg PO ACBREAKFAST 07/01/20 [History] Oxygen Therapy Mode: Room Air Patient Handouts: Acute Pancreatitis, [id number], Pancreatitis Eating Plan Referrals: Linda Sanchez MD [Primary Care Provider] - 07/11/20 9:00 am (Please follow up with Dr. Sanchez on July 11 at 9:00.) - Discharge Summary/Plan Comment DC Time >30 min.: Yes (45 mins ) - General Info Date of Service: 07/04/20 Functional Status: Reports: Pain Controlled, Tolerating Diet, Ambulating, Urinating, Incentive Spirometry. Denies: New Symptoms - Review of Systems General: Reports: No Symptoms. Denies: Fever, Weakness, Fatigue, Malaise, Chills HEENT: Reports: No Symptoms. Denies: Headaches, Sore Throat Pulmonary: Reports: No Symptoms. Denies: Shortness of Breath, Cough, Sputum, Hemoptysis, Wheezing Cardiovascular: Reports: No Symptoms. Denies: Chest Pain, Palpitations Gastrointestinal: Reports: Diarrhea. Denies: Abdominal Pain, Constipation, Nausea, Vomiting Genitourinary: Reports: No Symptoms. Denies: Pain Musculoskeletal: Reports: No Symptoms Skin: Reports: No Symptoms. Denies: Cyanosis Neurological: Reports: No Symptoms. Denies: Confusion, Numbness, Tingling, Difficulty Walking, Weakness, Gait Disturbance Psychiatric: Reports: No Symptoms - Patient Data Vitals - Most Recent: Last Vital Signs Temp 98.8 F 07/04/20 11:57 Pulse 55 L 07/04/20 11:57 Resp 16 07/04/20 11:57 BP 114/51 L 07/04/20 11:57 Pulse Ox 96 07/04/20 11:57 Weight - Most Recent: 180 lb 6.4 oz I&O - Last 24 hours: Intake & Output 07/03/20 07/04/20 07/04/20 22:59 06:59 14:59 Intake Total 1800 1000 420 Output Total 1350 1675 Balance 450 -675 420 Lab Results - Last 24 hrs: Laboratory Results - last 24 hr 07/04/20 07/04/20 Range/Units 06:20 06:20 WBC 11.49 H (3.98-10.04) K/mm3 RBC 2.89 L (3.98-5.22) M/mm3 Hgb 9.5 L (11.2-15.7) gm/dl Hct 29.5 L (34.1-44.9) % MCV 102.1 H (79.4-94.8) fl MCH 32.9 H (25.6-32.2) pg MCHC 32.2 (32.2-35.5) g/dl RDW Std Deviation 51.7 H (36.4-46.3) fL Plt Count 326 (182-369) K/mm3 MPV 8.6 L (9.4-12.3) fl Neut % (Auto) 70.5 (34.0-71.1) % Lymph % (Auto) 18.0 L (19.3-51.7) % [place] % (Auto) 9.4 (4.7-12.5) % Eos % (Auto) 1.5 (0.7-5.8) Baso % (Auto) 0.3 (0.1-1.2) % Neut # (Auto) 8.11 H (1.56-6.13) K/mm3 Lymph # (Auto) 2.07 (1.18-3.74) K/mm3 [place] # (Auto) 1.08 H (0.24-0.36) K/mm3 Eos # (Auto) 0.17 (0.04-0.36) K/mm3 Baso # (Auto) 0.03 (0.01-0.08) K/mm3 Manual Slide Review Not Reportable Sodium 138 (136-145) mEq/L Potassium 3.4 L (3.5-5.1) mEq/L Chloride 104 (98-107) mEq/L Carbon Dioxide 24 (21-32) mEq/L Anion Gap 13.4 (5-15) BUN 6 L (7-18) mg/dL Creatinine 0.7 (0.55-1.02) mg/dL Est Cr Clr Drug Dosing 64.82 mL/min Estimated GFR (MDRD) > 60 (>60) mL/min BUN/Creatinine Ratio 8.6 L (14-18) Glucose 84 (80-115) mg/dL Calcium 7.9 L (8.5-10.1) mg/dL Magnesium 2.0 (1.8-2.4) mg/dl Total Bilirubin 0.4 (0.2-1.0) mg/dL AST 20 (15-37) U/L ALT 13 L (14-59) U/L Alkaline Phosphatase 51 (46-116) U/L C-Reactive Protein 11.4 H* (<1.0) mg/dL Total Protein 6.4 (6.4-8.2) g/dl Albumin 2.6 L (3.4-5.0) g/dl Globulin 3.8 gm/dL Albumin/Globulin Ratio 0.7 L (1-2) JC Results - Last 24 hrs: Microbiology 07/01/20 17:55 Urine Culture - Final Urine, Clean Catch MIXED STEPHY SUGGESTIVE OF CONTAMINATION. Med Orders - Current: Current Medications Acetaminophen (Tylenol) 650 mg PO Q4H PRN PRN Reason: Pain (Mild 1-3)/fever Acetaminophen (Tylenol) 650 mg PO Q4HR PRN PRN Reason: Pain Hydrocodone Bitart/Acetaminophen ([place] 325-5 Mg) 1 tab PO Q4H PRN PRN Reason: Pain (moderate 4-6) Last Admin: 07/03/20 21:37 Dose: 1 tab Documented by: Albuterol/Ipratropium (Duoneb 3.0-0.5 Mg/3 Ml) 3 ml NEB Q4H PRN PRN Reason: Shortness Of Breath/wheezing Calcium Carbonate/Glycine (Tums) 1,000 mg PO DAILY@1200 [facility] Last Admin: 07/03/20 12:52 Dose: 1,000 mg Documented by: Citalopram Hydrobromide (Celexa) 20 mg PO BEDTIME [facility] Last Admin: 07/03/20 21:38 Dose: 20 mg Documented by: Folic Acid (Folic Acid) 1 mg PO 1200 [facility] Last Admin: 07/03/20 12:52 Dose: 1 mg Documented by: Hydromorphone HCl (Dilaudid) 0.5 mg IVPUSH Q1H PRN PRN Reason: Pain Last Admin: 07/01/20 21:09 Dose: 0.5 mg Documented by: Hydroxychloroquine Sulfate (Plaquenil) 200 mg PO DAILY [facility] Last Admin: 07/04/20 09:49 Dose: 200 mg Documented by: Promethazine HCl 12.5 mg/ (Sodium Chloride) 50.5 mls @ 100 mls/hr IV Q6H PRN PRN Reason: Nausea/Vomiting Last Admin: 07/02/20 10:04 Dose: 100 mls/hr Documented by: Ibuprofen (Motrin) 400 mg PO Q6HR PRN PRN Reason: Pain Levothyroxine Sodium (Levothyroxine) 75 mcg PO MoWeFr@0600 [facility] Last Admin: 07/03/20 06:47 Dose: 75 mcg Documented by: Levothyroxine Sodium (Synthroid) 88 mcg PO SuTuThSa@0600 [facility] Last Admin: 07/04/20 05:39 Dose: 88 mcg Documented by: Magnesium Oxide (Magnesium Oxide) 400 mg PO DAILY@1800 [facility] Last Admin: 07/03/20 18:18 Dose: 400 mg Documented by: Methotrexate (Methotrexate) 20 mg PO Smith@0900 [facility] Last Admin: 07/02/20 15:53 Dose: 20 mg Documented by: Miscellaneous Information (Remove Patch) 1 ea TRDERM Q72H [facility] Multivitamins (Thera) 1 each PO DAILY [facility] Last Admin: 07/04/20 09:49 Dose: 1 each Documented by: Ondansetron HCl (Zofran) 4 mg IVPUSH Q6H PRN PRN Reason: Nausea/Vomiting Last Admin: 07/03/20 11:32 Dose: 4 mg Documented by: Pantoprazole Sodium (Protonix) 40 mg PO Q12H [facility] Last Admin: 07/04/20 05:39 Dose: 40 mg Documented by: Polyethylene Glycol (Miralax) 17 gm PO DAILY PRN PRN Reason: Constipation Potassium Chloride (Klor-Con M20) 40 meq PO BID [facility] Stop: 07/05/20 09:01 Last Admin: 07/04/20 09:49 Dose: 40 meq Documented by: Prochlorperazine Edisylate (Compazine) 10 mg IVPUSH Q6H PRN PRN Reason: Nausea/Vomiting Last Admin: 07/03/20 16:12 Dose: 10 mg Documented by: Scopolamine (Transderm-Scop) 1.5 mg TRDERM Q72H PRN PRN Reason: N/V Last Admin: 07/02/20 10:03 Dose: 1.5 mg Documented by: Senna/Docusate Sodium (Senna Plus) 1 tab PO BID PRN PRN Reason: Constipation Zolpidem Tartrate (Ambien) 5 mg PO BEDTIME PRN PRN Reason: Sleep Last Admin: 07/03/20 21:37 Dose: 5 mg Documented by: Discontinued Medications Diphenhydramine HCl (Benadryl) 25 mg IVPUSH ONETIME ONE Stop: 07/02/20 11:59 Last Admin: 07/02/20 12:17 Dose: 25 mg Documented by: Hydromorphone HCl (Dilaudid) 0.5 mg IVPUSH ONETIME STA Stop: 06/30/20 21:06 Last Admin: 06/30/20 21:19 Dose: 0.5 mg Documented by: Hydromorphone HCl (Dilaudid) 0.5 mg IVPUSH ONETIME ONE Stop: 07/01/20 00:50 Last Admin: 07/01/20 00:56 Dose: 0.5 mg Documented by: Sodium Chloride (Normal Saline) 1,000 mls @ 150 mls/hr IV ASDIRECTED [facility] Last Admin: 07/02/20 17:29 Dose: 150 mls/hr Documented by: Sodium Chloride (Normal Saline) 100 mls @ 60 drops/min IV ASDIRECTED [facility] Last Admin: 07/01/20 00:10 Dose: 60 drops/min Documented by: Ceftriaxone Sodium 1 gm/ (Sodium Chloride) 100 mls @ 200 mls/hr IV Q24H [facility] Ceftriaxone Sodium 1 gm/ (Sodium Chloride) 100 mls @ 200 mls/hr IV Q24H [facility] Last Admin: 07/02/20 09:31 Dose: 200 mls/hr Documented by: Ceftriaxone Sodium 1 gm/ (Sodium Chloride) 100 mls @ 200 mls/hr IV Q24H [facility] Last Admin: 07/04/20 09:47 Dose: 200 mls/hr Documented by: Ibuprofen (Motrin) 600 mg PO Q6H PRN PRN Reason: Pain (moderate 4-6) Iopamidol (Isovue-300 (61%)) 100 ml IVPUSH ONETIME ONE Stop: 07/01/20 00:09 Last Admin: 07/01/20 00:10 Dose: 100 ml Documented by: Methotrexate (Methotrexate) 20 mg PO Sa@0900 [facility] Last Admin: 07/01/20 16:53 Dose: Not Given Documented by: Miscellaneous Information (Remove Patch) 0 ea TRDERM DAILY [facility] Nicotine (Habitrol) 21 mg TRDERM DAILY [facility] Last Admin: 07/04/20 09:50 Dose: Not Given Documented by: Non-Formulary Medication (Simponi Iv Infusion) 160.2 mg IV ASDIRECTED [facility] Ondansetron HCl (Zofran) 4 mg IVPUSH ONETIME ONE Stop: 06/30/20 21:06 Last Admin: 06/30/20 21:19 Dose: 4 mg Documented by: Ondansetron HCl (Zofran) 4 mg IVPUSH ONETIME ONE Stop: 07/01/20 00:35 Last Admin: 07/01/20 00:45 Dose: 4 mg Documented by: Pantoprazole Sodium (Protonix Iv) 40 mg IVPUSH Q12H [facility] Last Admin: 07/03/20 06:49 Dose: 40 mg Documented by: - Exam Quality Assessment: Reports: DVT Prophylaxis. Denies: Supplemental Oxygen General: Reports: Alert, Oriented, Cooperative, No Acute Distress HEENT: Reports: Pupils Equal, Pupils Reactive, Mucous Membr. Moist/[place] Neck: Reports: Supple, Trachea Midline Lungs: Reports: Clear to Auscultation, Normal Respiratory Effort Cardiovascular: Reports: Regular Rate, Regular Rhythm GI/Abdominal Exam: Normal Bowel Sounds, Soft, Non-Tender, No Distention (Female) Exam: Deferred Rectal (Female) Exam: Deferred Back Exam: Reports: Normal Inspection, Full Range of Motion Extremities: Normal Inspection, Normal Range of Motion, Non-Tender, Pedal Edema Skin: Reports: Warm, Dry, Intact Neurological: Reports: No New Focal Deficit Psy/Mental Status: Reports: Alert, Normal Affect, Normal Mood
[2020-07-04] MEDS: Folic Acid 1 MG Tab PO SCH (12:30)
[2020-07-04] MEDS: Calcium Carbonate 500 MG Tab.Chew PO SCH (12:30)
== END 2020-07-04 15:50 | disposition home or self-care (01) | DRG 439 ==
LOC: JD.ED 20:39 → JD.MS 07-01 01:36
PROVIDERS: ADMIT Internal Medicine; ATTEND Internal Medicine
DX: K85.90 Acute pancreatitis without necrosis or infection, unspecified (principal); H54.7 Unspecified visual loss; E78.00 Pure hypercholesterolemia, unspecified; K85.00 Idiopathic acute pancreatitis without necrosis or infection; E87.1 Hypo-osmolality and hyponatremia; N39.0 Urinary tract infection, site not specified; I10 Essential (primary) hypertension; L30.9 Dermatitis, unspecified; Z88.8 Allergy status to other drugs, medicaments and biological substances; Z91.040 Latex allergy status; Z79.890 Hormone replacement therapy; Z79.899 Other long term (current) drug therapy; E03.9 Hypothyroidism, unspecified; M06.9 Rheumatoid arthritis, unspecified; M85.80 Other specified disorders of bone density and structure, unspecified site; F41.9 Anxiety disorder, unspecified; E66.9 Obesity, unspecified; Z68.30 Body mass index [BMI] 30.0-30.9, adult; E87.8 Other disorders of electrolyte and fluid balance, not elsewhere classified; E87.6 Hypokalemia; E78.5 Hyperlipidemia, unspecified; Z90.710 Acquired absence of both cervix and uterus; Z98.42 Cataract extraction status, left eye; Z98.41 Cataract extraction status, right eye; Z98.51 Tubal ligation status; Z20.822 Contact with and (suspected) exposure to COVID-19
CPT/HCPCS: 36415; 74177; 76705; 80053; 83690; 83735; 85007; 85027; 96374; 96375; 96376; 97162; 99285; J1170 ×2; J2405 ×2; J7030; Q9967; U0002; 80048; 80061; 81001; 83605; 84484; 85025; 85652; 86140; 87086; 93005; 99222; 99233; 99239; 99284; A9270-GY; C9113; J0696; J0780; J1200; J2550; J8610

== ENCOUNTER 2022-02-27 08:03 | Day surgery (SDC) | payer MEDICARE, BC ==
[~2022-02-27 08:03] MED LIST: Acetaminophen 325 MG Tab PO SCH; EPINEPHrine 1 MG/ML SDV ONE; Lactated Ringers 1,000 ML IV SCH; Lactated Ringers 1,000 ML ONE; Lidocaine 1%/Sod Bicarbonate in NS 8.4% 1 ML Syringe IDERM PRN; Midazolam 1 MG/ML 2 ML SDV ONE; Morphine 8 MG, EPINEPHrine 0.3 MG, Cefuroxime 750 MG, Ketorolac 30 MG, Sodium Chloride ... PRN; Pregabalin 25 MG Cap PO SCH; Propofol 200 MG/20 ML SDV ONE; Ropivacaine 0.5% 5 MG/ML 30 ML SDV ONE; Sodium Chloride 0.9% 10 ML Syringe FLUSH PRN; Sodium Chloride 0.9% 10 ML Syringe FLUSH SCH; ceFAZolin 2 GM Vial ONE; fentaNYL 100 MCG/2 ML SDV ONE; oxyCODONE ER 10 MG TAB.ER PO SCH
[2022-02-27] MEDS ORDERED: Vancomycin 1 GM SDV ONE (08:30)
[2022-02-27] MEDS ORDERED: ePHEDrine 50 MG/ML SDV ONE (10:07)
[2022-02-27] MEDS ORDERED: Phenylephrine HCl In 0.9% NaCl 1 MG/10 ML Vial ONE (10:32)
[2022-02-27] MEDS ORDERED: Midazolam 1 MG/ML 2 ML SDV ONE (10:44)
[2022-02-27] MEDS ORDERED: fentaNYL 100 MCG/2 ML SDV IVPUSH PRN (11:55)
[2022-02-27] MEDS ORDERED: Ondansetron 4 MG/2 ML SDV IVPUSH PRN (11:55)
[2022-02-27] MEDS ORDERED: HYDROmorphone 0.5 MG/0.5 ML Syringe IVPUSH PRN (11:55)
[2022-02-27 13:49] VITALS: BP 117/75; PULSE 86
[2022-02-27] MEDS ORDERED: oxyCODONE 5 MG Tab PO ONE ×2 (14:00→14:27)
== END 2022-02-27 15:15 | disposition home or self-care (01) ==
LOC: JD.SDS 08:03
PROVIDERS: ATTEND Orthopaedic Surgery
DX: M17.12 Unilateral primary osteoarthritis, left knee (principal); G89.29 Other chronic pain; E03.9 Hypothyroidism, unspecified; E78.00 Pure hypercholesterolemia, unspecified; K21.00 Gastro-esophageal reflux disease with esophagitis, without bleeding; M05.79 Rheumatoid arthritis with rheumatoid factor of multiple sites without organ or systems involvement; F41.8 Other specified anxiety disorders; E66.9 Obesity, unspecified; Z79.899 Other long term (current) drug therapy; Z79.890 Hormone replacement therapy; Z91.040 Latex allergy status; Z88.8 Allergy status to other drugs, medicaments and biological substances; Z68.29 Body mass index [BMI] 29.0-29.9, adult
CPT/HCPCS: 0055T; 27447; 73560; 97110; 97116; 97161; A9270; C1713; C1776; J0171; J0690; J0697; J1170; J1885; J2250; J2270; J2704; J2795; J3010; J3370; J7120; 01402; 64450; 76942

== ENCOUNTER 2023-07-25 11:46 | Observation (INO) | payer MEDICARE ==
[2023-07-25 12:47] LABS: BASOPHILS PERCENT AUTO 0.5 % (0.0-1.0); EOSINOPHILS PERCENT AUTO 0.3 % (0.0-6.0); HEMATOCRIT 35.5 % (37.0-47.0); IMMATURE GRAN ABSOLUTE AUTO 0.07 K/mm3 (0.00-0.05); IMMATURE GRAN PERCENT AUTO 0.8 % (0.0-0.4); LYMPHOCYTES ABSOLUTE AUTO 1.6 K/mm3 (1.0-4.8); LYMPHOCYTES PERCENT AUTO 18.2 % (24.0-44.0); MEAN CORPUSCULAR HEMOGLOBIN 34.3 pg (28.0-32.0); MEAN CORPUSCULAR HGB CONC 33.8 g/dl (32.0-36.0); MEAN CORPUSCULAR VOLUME 101.4 fl (83.0-99.0); MEAN PLATELET VOLUME 8.6 fl (9.4-12.3); MONOCYTES PERCENT AUTO 11.6 % (0.0-8.0); NEUTROPHILS ABSOLUTE AUTO 5.9 K/mm3 (1.8-7.7); NEUTROPHILS PERCENT AUTO 68.6 % (41.0-71.0); PLATELET COUNT,PLT 233 K/mm3 (150-400); WHITE BLOOD CELL COUNT,WBC 8.67 K/mm3 (3.9-11.3)
[2023-07-25 13:26] LABS: A/G RATIO 0.8 (1-2); ANION GAP 14.8 (5-15); BILIRUBIN TOTAL 0.3 mg/dL (0.2-1.0); BUN/CREATININE RATIO 19.1 (14-18); CALCIUM 10.2 mg/dL (8.5-10.1); CREATININE 1.1 mg/dL (0.55-1.02); EST CRCL DRUG DOSING (CG) 38.71 mL/min; POTASSIUM,K 3.8 mEq/L (3.5-5.1)
[2023-07-25 13:50] LABS: CORONAVIRUS COVID-19 NAA NEGATIVE (NEGATIVE); INFLUENZA A NAA NEGATIVE (NEGATIVE); RESPIRATORY SYNCYTIAL VIR NAA NEGATIVE (NEGATIVE)
[2023-07-25] MEDS: Sodium Chloride 0.9% 10 ML Syringe FLUSH PRN (15:34)
[2023-07-25] MEDS: Iopamidol 755 Mg/ML 100 ML Bottle IVPUSH ONE (15:34)
[2023-07-25] MEDS: Sodium Chloride 0.9% 100 ML IV SCH (15:35)
[2023-07-25] MEDS: Sodium Chloride 0.9% 1,000 ML IV ONE (16:53)
[2023-07-25] MEDS: methylPREDNISolone Sodium Succinate 40 MG/1 ML SDV IVPUSH SCH (18:56)
[2023-07-25] MEDS: Heparin Sodium 5,000 Units/ML Vial SUBCUT SCH (18:56)
[2023-07-25] MEDS: Acetaminophen 325 MG Tab PO PRN (20:51)
[2023-07-26 05:35] LABS: BASOPHILS PERCENT AUTO 0.3 % (0.0-1.0); HEMATOCRIT 34.3 % (37.0-47.0); HEMOGLOBIN 11.6 gm/dl (12.0-16.0); IMMATURE GRAN ABSOLUTE AUTO 0.04 K/mm3 (0.00-0.05); IMMATURE GRAN PERCENT AUTO 0.7 % (0.0-0.4); LYMPHOCYTES ABSOLUTE AUTO 2.1 K/mm3 (1.0-4.8); LYMPHOCYTES PERCENT AUTO 34.7 % (24.0-44.0); MEAN CORPUSCULAR HGB CONC 33.8 g/dl (32.0-36.0); MEAN CORPUSCULAR VOLUME 100.6 fl (83.0-99.0); MEAN PLATELET VOLUME 8.6 fl (9.4-12.3); MONOCYTES ABSOLUTE AUTO 0.2 K/mm3 (0.0-0.8); MONOCYTES PERCENT AUTO 2.6 % (0.0-8.0); NEUTROPHILS ABSOLUTE AUTO 3.7 K/mm3 (1.8-7.7); NEUTROPHILS PERCENT AUTO 61.7 % (41.0-71.0); PLATELET COUNT,PLT 234 K/mm3 (150-400); RED BLOOD CELL COUNT 3.41 M/mm3 (4.10-5.30); WHITE BLOOD CELL COUNT,WBC 6.05 K/mm3 (3.9-11.3)
[2023-07-26 05:38] LABS: A/G RATIO 0.7 (1-2); ALBUMIN 2.7 g/dl (3.4-5.0); ANION GAP 15.9 (5-15); BILIRUBIN TOTAL 0.3 mg/dL (0.2-1.0); BUN/CREATININE RATIO 18.9 (14-18); CALCIUM 9.8 mg/dL (8.5-10.1); CREATININE 0.9 mg/dL (0.55-1.02); EST CRCL DRUG DOSING (CG) 47.32 mL/min; POTASSIUM,K 3.9 mEq/L (3.5-5.1); PROTEIN TOTAL,TP 6.7 g/dl (6.4-8.2)
[2023-07-26 06:13] LABS: SLIDE REVIEW ABNORMAL SMEAR
[2023-07-26] MEDS: cefTRIAXone 2 GM in Sodium Chloride 0.9% 100 ML IV SCH (08:10)
[2023-07-26] MEDS: LEVOTHYROXINE 75 MCG PO SCH (10:07)
[2023-07-26] MEDS: Fish Oil/Omega-3 Fatty Acids 1 Gm Cap PO SCH (10:08)
[2023-07-26] MEDS: Fluticasone NASAL Spray 16 GM Bottle NASBOTH SCH (10:08)
[2023-07-26] MEDS: OMEPRAZOLE MAGNESIUM 20 MG PO SCH (10:42)
[2023-07-26] MEDS: Loratadine 10 MG Tab PO SCH (10:42)
[2023-07-26] MEDS: LEVOTHYROXINE 88 MCG PO SCH (10:45)
[2023-07-26] MEDS: Acetaminophen 325 MG Tab PO PRN (10:49)
[2023-07-26] MEDS: Calcium Carbonate 600 MG Tab PO SCH (12:38)
[2023-07-26 12:46] VITALS: BP 118/63; PULSE 64
[2023-07-26] MEDS: Methotrexate 2.5 MG Tab PO SCH (13:44)
[2023-07-27] MEDS ORDERED: Folic Acid 1 MG Tab PO SCH (09:00)
== END 2023-07-26 13:20 | disposition home or self-care (01) ==
LOC: JD.ED 11:46 → JD.MS 17:52
PROVIDERS: ADMIT Internal Medicine; ATTEND Internal Medicine
DX: J96.01 Acute respiratory failure with hypoxia (principal); M06.9 Rheumatoid arthritis, unspecified; K21.9 Gastro-esophageal reflux disease without esophagitis; E78.5 Hyperlipidemia, unspecified; Z79.899 Other long term (current) drug therapy; Z91.040 Latex allergy status; Z88.0 Allergy status to penicillin; Z88.1 Allergy status to other antibiotic agents; Z88.6 Allergy status to analgesic agent
CPT/HCPCS: 0241U; 36415; 71046; 71275; 80053; 84484; 85025; 93005; 94760; 94762; 99285; A9270; J0696; J1644; J2920; J3490; J7030; Q9967; 96365; 96372; 96375; 96376; 99222; 99239; G0378

== ENCOUNTER 2023-08-04 22:31 | Emergency (ER) | payer MEDICARE ==
[2023-08-04] MEDS ORDERED: Sodium Chloride 0.9% 10 ML Syringe FLUSH PRN (23:10)
[2023-08-05 00:02] LABS: BASOPHILS PERCENT AUTO 0.4 % (0.0-1.0); EOSINOPHILS ABSOLUTE AUTO 0.1 K/mm3 (0.0-0.4); EOSINOPHILS PERCENT AUTO 0.6 % (0.0-6.0); HEMATOCRIT 33.4 % (37.0-47.0); HEMOGLOBIN 11.3 gm/dl (12.0-16.0); IMMATURE GRAN ABSOLUTE AUTO 0.05 K/mm3 (0.00-0.05); IMMATURE GRAN PERCENT AUTO 0.6 % (0.0-0.4); LYMPHOCYTES ABSOLUTE AUTO 1.5 K/mm3 (1.0-4.8); LYMPHOCYTES PERCENT AUTO 18.1 % (24.0-44.0); MEAN CORPUSCULAR HEMOGLOBIN 34.5 pg (28.0-32.0); MEAN CORPUSCULAR HGB CONC 33.8 g/dl (32.0-36.0); MEAN CORPUSCULAR VOLUME 101.8 fl (83.0-99.0); MEAN PLATELET VOLUME 8.7 fl (9.4-12.3); MONOCYTES ABSOLUTE AUTO 0.2 K/mm3 (0.0-0.8); MONOCYTES PERCENT AUTO 2.9 % (0.0-8.0); NEUTROPHILS ABSOLUTE AUTO 6.3 K/mm3 (1.8-7.7); NEUTROPHILS PERCENT AUTO 77.4 % (41.0-71.0); PLATELET COUNT,PLT 231 K/mm3 (150-400); RED BLOOD CELL COUNT 3.28 M/mm3 (4.10-5.30); WHITE BLOOD CELL COUNT,WBC 8.07 K/mm3 (3.9-11.3)
[2023-08-05 00:03] LABS: A/G RATIO 0.7 (1-2); ALANINE AMINOTRANSFERASE,ALT 36 U/L (14-59); ALBUMIN 2.5 g/dl (3.4-5.0); ALKALINE PHOSPHATASE 60 U/L (46-116); ANION GAP 10.9 (5-15); ASPARTATE AMNIOTRANSFERASE,AST 46 U/L (15-37); BILIRUBIN TOTAL 0.4 mg/dL (0.2-1.0); BLOOD UREA NITROGEN,BUN 21 mg/dL (7-18); BUN/CREATININE RATIO 16.2 (14-18); CALCIUM 12.1 mg/dL (8.5-10.1); CARBON DIOXIDE,CO2 30 mEq/L (21-32); CHLORIDE,CL 97 mEq/L (98-107); CREATININE 1.3 mg/dL (0.55-1.02); ESTIMATED GFR 45 mL/min (>60); GLUCOSE RANDOM 139 mg/dL (70-99); MAGNESIUM 1.7 mg/dL (1.8-2.4); POTASSIUM,K 3.9 mEq/L (3.5-5.1); PROTEIN TOTAL,TP 6.3 g/dl (6.4-8.2); SODIUM,NA 134 mEq/L (136-145)
[2023-08-05 00:36] VITALS: BP 100/53; PULSE 72
== END 2023-08-05 00:55 | disposition home or self-care (01) ==
LOC: JD.ED 22:31
DX: U07.1 COVID-19 (principal); R06.00 Dyspnea, unspecified; R09.02 Hypoxemia; K21.9 Gastro-esophageal reflux disease without esophagitis; E66.9 Obesity, unspecified; E03.9 Hypothyroidism, unspecified; Z91.040 Latex allergy status; Z88.0 Allergy status to penicillin; Z88.8 Allergy status to other drugs, medicaments and biological substances; Z79.899 Other long term (current) drug therapy; Z90.49 Acquired absence of other specified parts of digestive tract; Z90.710 Acquired absence of both cervix and uterus
CPT/HCPCS: 36415; 71045; 71045-26; 80053; 83735; 85025; 99285

== ENCOUNTER 2023-11-10 13:50 | Emergency (ER) | payer MEDICARE ==
[2023-11-10 14:24] LABS: BASOPHILS ABSOLUTE AUTO 0.1 K/mm3 (0.0-0.2); BASOPHILS PERCENT AUTO 0.7 % (0.0-1.0); EOSINOPHILS ABSOLUTE AUTO 0.1 K/mm3 (0.0-0.4); EOSINOPHILS PERCENT AUTO 1.9 % (0.0-6.0); HEMATOCRIT 29.9 % (37.0-47.0); IMMATURE GRAN ABSOLUTE AUTO 0.03 K/mm3 (0.00-0.05); IMMATURE GRAN PERCENT AUTO 0.4 % (0.0-0.4); LYMPHOCYTES ABSOLUTE AUTO 1.4 K/mm3 (1.0-4.8); MEAN CORPUSCULAR HGB CONC 33.4 g/dl (32.0-36.0); MEAN CORPUSCULAR VOLUME 101.7 fl (83.0-99.0); MEAN PLATELET VOLUME 8.3 fl (9.4-12.3); MONOCYTES ABSOLUTE AUTO 0.4 K/mm3 (0.0-0.8); MONOCYTES PERCENT AUTO 6.3 % (0.0-8.0); NEUTROPHILS ABSOLUTE AUTO 4.7 K/mm3 (1.8-7.7); NEUTROPHILS PERCENT AUTO 69.7 % (41.0-71.0); PLATELET COUNT,PLT 240 K/mm3 (150-400); RED BLOOD CELL COUNT 2.94 M/mm3 (4.10-5.30); WHITE BLOOD CELL COUNT,WBC 6.71 K/mm3 (3.9-11.3)
[2023-11-10 14:47] LABS: A/G RATIO 0.8 (1-2); ANION GAP 12.9 (5-15); BILIRUBIN TOTAL 0.4 mg/dL (0.2-1.0); BUN/CREATININE RATIO 14.4 (14-18); CALCIUM 9.2 mg/dL (8.5-10.1); CREATININE 0.9 mg/dL (0.55-1.02); EST CRCL DRUG DOSING (CG) 46.66 mL/min; POTASSIUM,K 3.9 mEq/L (3.5-5.1); PROTEIN TOTAL,TP 6.8 g/dl (6.4-8.2)
[2023-11-10] MEDS ORDERED: Sodium Chloride 0.9% 100 ML IV SCH (15:15)
[2023-11-10] MEDS: Iopamidol 755 Mg/ML 100 ML Bottle IVPUSH ONE (15:41)
[2023-11-10] MEDS: Sodium Chloride 0.9% 500 ML IV SCH (16:18)
[2023-11-10 16:55] LABS: APPEARANCE,URINE CLEAR (Clear); BILIRUBIN,URINE NEGATIVE (Negative); COLOR,URINE YELLOW (Yellow); GLUCOSE,URINE NEGATIVE (Negative); KETONES,URINE NEGATIVE (Negative); LEUKOCYTE ESTERASE,URINE 1+ (Negative); NITRITE,URINE NEGATIVE (Negative); OCCULT BLOOD,URINE NEGATIVE (Negative); PROTEIN,URINE NEGATIVE (Negative); UROBILINOGEN,URINE 0.2 (0.2-1.0)
[2023-11-10] MEDS: Azithromycin 250 MG Tab PO ONE (16:56)
[2023-11-10] MEDS: Albuterol 6.7 GM Inhaler INH ONE (16:58)
[2023-11-10 17:23] LABS: BACTERIA,URINE FEW /hpf (FEW); MUCUS,URINE FEW /hpf (FEW); RBC,URINE 0-5 /hpf (0-5); SQUAMOUS EPITHELIAL CELLS,UR 0-5 /hpf (0-5)
[2023-11-10 20:52] VITALS: BP 112/87; PULSE 72
== END 2023-11-10 17:30 | disposition home or self-care (01) ==
LOC: JD.ED 13:50
DX: J18.9 Pneumonia, unspecified organism (principal); D50.9 Iron deficiency anemia, unspecified; E78.00 Pure hypercholesterolemia, unspecified; E03.9 Hypothyroidism, unspecified; Z88.0 Allergy status to penicillin; Z91.040 Latex allergy status; Z88.8 Allergy status to other drugs, medicaments and biological substances; Z79.890 Hormone replacement therapy; Z79.899 Other long term (current) drug therapy; Z90.49 Acquired absence of other specified parts of digestive tract; Z90.710 Acquired absence of both cervix and uterus
CPT/HCPCS: 36415; 71046; 71275; 80053; 81001; 81003; 83880; 84484; 85025; 85379; 87086; 93005; 94640; 99285; A9270; J7030; Q9967; 93010; 99283

== ENCOUNTER 2024-08-16 13:59 | Emergency (ER) | payer MEDICARE ==
[2024-08-16 14:34] LABS: BASOPHILS ABSOLUTE AUTO 0.1 K/mm3 (0.0-0.2); BASOPHILS PERCENT AUTO 0.9 % (0.0-1.0); EOSINOPHILS ABSOLUTE AUTO 0.5 K/mm3 (0.0-0.4); EOSINOPHILS PERCENT AUTO 6.1 % (0.0-6.0); HEMOGLOBIN 8.1 gm/dl (12.0-16.0); IMMATURE GRAN ABSOLUTE AUTO 0.04 K/mm3 (0.00-0.05); IMMATURE GRAN PERCENT AUTO 0.5 % (0.0-0.4); LYMPHOCYTES ABSOLUTE AUTO 3.4 K/mm3 (1.0-4.8); LYMPHOCYTES PERCENT AUTO 38.6 % (24.0-44.0); MEAN CORPUSCULAR HEMOGLOBIN 28.3 pg (28.0-32.0); MEAN CORPUSCULAR HGB CONC 31.2 g/dl (32.0-36.0); MEAN CORPUSCULAR VOLUME 90.9 fl (83.0-99.0); MEAN PLATELET VOLUME 9.7 fl (9.4-12.3); MONOCYTES ABSOLUTE AUTO 1.7 K/mm3 (0.0-0.8); MONOCYTES PERCENT AUTO 19.3 % (0.0-8.0); NEUTROPHILS ABSOLUTE AUTO 3.1 K/mm3 (1.8-7.7); NEUTROPHILS PERCENT AUTO 34.6 % (41.0-71.0); PLATELET COUNT,PLT 357 K/mm3 (150-400); RED BLOOD CELL COUNT 2.86 M/mm3 (4.10-5.30); WHITE BLOOD CELL COUNT,WBC 8.86 K/mm3 (3.9-11.3)
[2024-08-16 14:42] LABS: RETICULOCYTE COUNT PERCENT 3.34 % (0.50-2.00)
[2024-08-16 15:00] LABS: A/G RATIO 0.7 (1-2); ALBUMIN 2.9 g/dl (3.4-5.0); ANION GAP 12.9 (5-15); BILIRUBIN TOTAL 0.3 mg/dL (0.2-1.0); CALCIUM 9.3 mg/dL (8.5-10.1); EST CRCL DRUG DOSING (CG) 41.99 mL/min; MAGNESIUM 1.8 mg/dL (1.8-2.4); POTASSIUM,K 3.9 mEq/L (3.5-5.1); PROTEIN TOTAL,TP 7.1 g/dl (6.4-8.2)
[2024-08-16 15:33] LABS: T4 FREE 0.9 ng/dL (0.76-1.46)
[2024-08-16 15:41] LABS: TSH 4.252 uIU/mL (0.358-3.74)
[2024-08-16] MEDS: Acetaminophen 325 MG Tab PO ONE (19:01)
[2024-08-16] MEDS: diphenhydrAMINE 50 MG/ML SDV IV ONE (19:02)
[2024-08-16] MEDS: Sodium Chloride 0.9% 1,000 ML IV ONE (19:10)
[2024-08-16 21:03] LABS: FERRITIN 25 ng/ml (8-252); LACTATE DEHYDROGENASE,LDH 293 U/L (81-234)
[2024-08-16 23:08] VITALS: BP 137/64
[2024-08-16 23:21] VITALS: PULSE 74
== END 2024-08-16 23:20 | disposition home or self-care (01) ==
LOC: JD.ED 13:59
DX: D64.9 Anemia, unspecified (principal); E78.00 Pure hypercholesterolemia, unspecified; E03.9 Hypothyroidism, unspecified; Z88.0 Allergy status to penicillin; Z91.040 Latex allergy status; Z79.899 Other long term (current) drug therapy; Z88.8 Allergy status to other drugs, medicaments and biological substances; Z79.890 Hormone replacement therapy
CPT/HCPCS: 36415; 36430; 80053; 82728; 83540; 83615; 83735; 84439; 84443; 84466; 85025; 85045; 86850; 86900; 86901; 86922; 96374; 99284; A9270; J1200; J7030; P9016

== ENCOUNTER 2024-09-29 08:01 | Day surgery (SDC) | payer MEDICARE ==
[2024-09-29] MEDS: Lactated Ringers 1,000 ML IV SCH (08:20)
[2024-09-29] MEDS ORDERED: Propofol 200 MG/20 ML SDV ONE ×3 (08:42→09:17)
[2024-09-29] MEDS ORDERED: Sodium Chloride 0.9% 10 ML Syringe FLUSH PRN (08:59)
[2024-09-29] MEDS ORDERED: Sodium Chloride 0.9% 10 ML Syringe FLUSH SCH (09:00)
[2024-09-29] MEDS ORDERED: Glycopyrrolate 0.2 MG/ML 2 ML SDV ONE (09:19)
[2024-09-29 10:50] VITALS: BP 116/75; PULSE 85
== END 2024-09-29 10:30 | disposition home or self-care (01) ==
LOC: JD.SDS 08:01
PROVIDERS: ATTEND Surgery
DX: D64.9 Anemia, unspecified (principal); K57.31 Diverticulosis of large intestine without perforation or abscess with bleeding; K44.9 Diaphragmatic hernia without obstruction or gangrene; E03.9 Hypothyroidism, unspecified; E78.00 Pure hypercholesterolemia, unspecified; Z79.890 Hormone replacement therapy; Z79.899 Other long term (current) drug therapy; Z91.040 Latex allergy status; Z88.8 Allergy status to other drugs, medicaments and biological substances
CPT/HCPCS: J1596; J2704; J7120

== ENCOUNTER 2024-12-02 19:54 | Emergency (ER) | payer MEDICARE ==
[2024-12-02 20:25] VITALS: PULSE 81
[2024-12-02] MEDS ORDERED: Sodium Chloride 0.9% 10 ML Syringe FLUSH PRN (20:27)
[2024-12-02] MEDS ORDERED: Iopamidol 612 MG/ML 100 ML Bottle IVPUSH ONE (20:41)
[2024-12-02] MEDS: Dexamethasone 4 MG/ML 5 ML MDV PO ONE (21:38)
[2024-12-02 22:12] LABS: BASOPHILS ABSOLUTE AUTO 0.1 K/mm3 (0.0-0.2); BASOPHILS PERCENT AUTO 0.6 % (0.0-1.0); EOSINOPHILS ABSOLUTE AUTO 0.2 K/mm3 (0.0-0.4); HEMATOCRIT 34.4 % (37.0-47.0); HEMOGLOBIN 11.3 gm/dl (12.0-16.0); IMMATURE GRAN ABSOLUTE AUTO 0.03 K/mm3 (0.00-0.05); IMMATURE GRAN PERCENT AUTO 0.3 % (0.0-0.4); LYMPHOCYTES ABSOLUTE AUTO 1.9 K/mm3 (1.0-4.8); MEAN CORPUSCULAR HEMOGLOBIN 33.1 pg (28.0-32.0); MEAN CORPUSCULAR HGB CONC 32.8 g/dl (32.0-36.0); MEAN CORPUSCULAR VOLUME 100.9 fl (83.0-99.0); MEAN PLATELET VOLUME 8.8 fl (9.4-12.3); MONOCYTES ABSOLUTE AUTO 1.3 K/mm3 (0.0-0.8); MONOCYTES PERCENT AUTO 14.3 % (0.0-8.0); NEUTROPHILS ABSOLUTE AUTO 5.9 K/mm3 (1.8-7.7); NEUTROPHILS PERCENT AUTO 62.8 % (41.0-71.0); PLATELET COUNT,PLT 240 K/mm3 (150-400); RED BLOOD CELL COUNT 3.41 M/mm3 (4.10-5.30); WHITE BLOOD CELL COUNT,WBC 9.33 K/mm3 (3.9-11.3)
[2024-12-02 22:37] LABS: A/G RATIO 0.7 (1-2); ALBUMIN 3.2 g/dl (3.4-5.0); BILIRUBIN TOTAL 0.6 mg/dL (0.2-1.0); BUN/CREATININE RATIO 17.8 (14-18); CALCIUM 9.3 mg/dL (8.5-10.1); CREATININE 0.9 mg/dL (0.55-1.02); EST CRCL DRUG DOSING (CG) 43.89 mL/min; PROTEIN TOTAL,TP 8.1 g/dl (6.4-8.2)
[2024-12-03 00:45] VITALS: BP 131/67
== END 2024-12-03 00:45 | disposition home or self-care (01) ==
LOC: JD.ED 19:54
DX: J02.9 Acute pharyngitis, unspecified (principal); G89.18 Other acute postprocedural pain; E03.9 Hypothyroidism, unspecified; E78.00 Pure hypercholesterolemia, unspecified; Z88.0 Allergy status to penicillin; Z91.040 Latex allergy status; Z79.899 Other long term (current) drug therapy; Z79.890 Hormone replacement therapy
CPT/HCPCS: 36415; 70490; 71045; 80053; 85025; 87651; 99284; J1100; 99283